=== PATIENT | male | born 1930 | race Caucasian/White ===

== ENCOUNTER 2017-02-06 12:01 | Inpatient (IN) | payer OTHER, MEDICARE ==
[2017-02-06] MEDS ORDERED: NS 1,000 ML IV ONE (12:24)
--- NOTE | 2017-02-06 12:24 | EDPHY ---
H & P Time Seen by Provider: 02/06/17 12:24 HPI/ROS: CHIEF COMPLAINT: Syncope, lower GI bleed HISTORY OF PRESENT ILLNESS: The patient presents to the ED with syncope, inability to get off the floor and development of a lower GI bleed. The patient is not anticoagulated. He does take daily aspirin. He has no prior history of a GI bleed. The patient does have a history of dementia. The patient does complain of some pain in his lower back which has been present for several weeks. The patient denies any acute focal numbness or weakness. He does feel globally weak. The patient has no complaints of fever, cough or congestion. The patient reportedly had been well prior to today's episode. REVIEW OF SYSTEMS: A comprehensive 10 point review of systems is otherwise negative aside from elements mentioned in the history of present illness. Source: Patient Exam Limitations: No limitations - Personal History Tetanus Vaccine Date: nov 2012 - Medical/Surgical History Hx Asthma: No Hx Chronic Respiratory Disease: No Hx Diabetes: No Hx Cardiac Disease: Yes Hx Renal Disease: No Hx Cirrhosis: No Hx Alcoholism: No Hx HIV/AIDS: No Hx Splenectomy or Spleen Trauma: No Other PMH: dementia, lipids, thyroid; prostate CA; - Social History Smoking Status: Former smoker - Physical Exam Exam: General Appearance: Alert, no distress Head: 2 cm occipital scalp plaque with small hematoma Neck: Minimal tenderness to palpation bilateral paracervical muscles Eyes: Pupils equal and round no pallor or injection ENT, Mouth: Mucous membranes moist Respiratory: There are no retractions, lungs are clear to auscultation Cardiovascular: Regular rate and rhythm Gastrointestinal: Abdomen is soft and nontender, no masses, bowel sounds normal Rectal: Bright red blood noted on digital rectal exam Neurological: A&O, normal motor function, normal sensory exam, normal cranial nerves Skin: Warm and dry, no rashes Musculoskeletal: Tenderness to palpation noted in the lower lumbar spine Extremities: symmetrical, full range of motion Constitutional: Initial Vital Signs Temperature (C) 36.5 C 02/06/17 12:01 Heart Rate 83 02/06/17 12:01 Respiratory Rate 20 02/06/17 12:01 Blood Pressure 119/63 02/06/17 12:01 O2 Sat (%) 92 02/06/17 12:01 O2 Delivery Mode Room Air Allergies/Adverse Reactions: No Known Allergies Allergy (Verified 02/06/17 12:24) Home Medications: Medication Instructions Recorded RX: [place]-3 Fatty Acids/Fish Oil 1 each PO DAILY 05/05/11 [Fish Oil 1,000 mg Softgel] RX: Tamsulosin HCl 0.4 mg PO DAILY 05/05/11 RX: Aspirin [Halfprin] 162 mg PO DAILY 06/13/11 RX: Atorvastatin Calcium [Lipitor 40 mg PO HS 06/13/11 40 mg (*)] RX: Herbals/Supplements -Info Only 1 ea PO DAILY 03/01/15 RX: Levothyroxine [Synthroid 75 75 mcg PO DAILY06 03/01/15 mcg (*)] RX: Rivastigmine [Exelon] 1 patch TP DAILY 03/01/15 Medical Decision Making - Diagnostics EKG Interpretation: EKG: Complete interpretation has been separately recorded in the [facility] archive. Summary impression: Sinus rhythm, rate 71, multiple PACs noted Imaging Results: Imaging Impressions Cervical Spine CT 02/06/17 12:43 Impression: 1. No acute posttraumatic abnormality identified. If there is persistent pain or neurologic deficit, consider MRI and/or flexion and extension views if clinically indicated. 2. Multilevel degenerative change with anterolisthesis of C2 on C3 and C3 on C4 , likely degenerative, with probable moderate spinal canal narrowing in the mid and lower cervical spine. Head CT 02/06/17 12:43 Impression: 1. Left frontal scalp laceration with no acute intracranial findings. 2. Diffuse cerebral atrophy with periventricular and subcortical low attenuation consistent with chronic microvascular ischemic gliosis. ED Course/Re-evaluation: The patient had an IV established. He was placed on a desk monitor. The patient has been typed and screened. The patient does have a scalp laceration and evidence of head trauma. He was taken for a CT scan of the head and cervical spine which demonstrate no evidence of an acute fracture, intracranial hemorrhage or additional injury. The patient underwent a CT scan of the abdomen pelvis for evaluation of his back and abdominal pain as well as lower GI bleed. This was done without contrast given his chronic renal insufficiency. CT scan of the head, cervical spine abdomen and pelvis demonstrate no evidence of trauma or obvious diverticulitis. The patient will be admitted to the hospital for evaluation of his lower GI bleed. The patient did have a scalp laceration repaired with leatha. These will need to be removed in 10 days. This has been communicated to the admitting hospitalist service. Consultation is made with Gastroenterology. The patient will be seen by Dr. Talbert. Consultation is made with Dr. Silva from the hospitalist service who will admit the patient. Differential Diagnosis: Differential diagnosis considered includes intracranial hemorrhage, skull fracture, cervical spine fracture, diverticular bleed, diverticulitis, critical anemia, hypovolemia - Data Points Laboratory Results: Laboratory Results 02/06/17 12:20 02/06/17 12:20 02/06/17 02/06/17 02/06/17 12:30 12:20 12:20 WBC RBC Hgb Hct MCV MCH MCHC RDW Plt Count MPV Neut % (Auto) Lymph % (Auto) Gates % (Auto) Eos % (Auto) Baso % (Auto) Nucleat RBC Rel Count Absolute Neuts (auto) Absolute Lymphs (auto) Absolute Monos (auto) Absolute Eos (auto) Absolute Basos (auto) Absolute Nucleated RBC Immature Gran % Immature Gran # PT 15.2 SEC H SEC (12.0-15.0) INR 1.20 H (0.83-1.16) APTT 27.9 SEC SEC (23.0-38.0) Sodium 136 mEq/L mEq/L (134-144) Potassium 5.2 mEq/L mEq/L (3.5-5.2) Chloride 105 mEq/L mEq/L (97-110) Carbon Dioxide 17 mEq/l L mEq/l (22-31) Anion Gap 14 mEq/L mEq/L (8-16) BUN 41 mg/dL H mg/dL (7-23) Creatinine 1.6 mg/dL H mg/dL (0.7-1.3) Estimated GFR 41 Glucose 159 mg/dL H mg/dL (70-100) Calcium 9.3 mg/dL mg/dL (8.5-10.4) Patient ABO/Rh A POSITIVE Antibody Screen NEGATIVE 02/06/17 12:20 WBC 15.65 10^3/uL H 10^3/uL (3.80-9.50) RBC 4.44 10^6/uL 10^6/uL (4.40-6.38) Hgb 11.9 g/dL L g/dL (13.7-17.5) Hct 37.8 % L % (40.0-51.0) MCV 85.1 fL fL (81.5-99.8) MCH 26.8 pg L pg (27.9-34.1) MCHC 31.5 g/dL L g/dL (32.4-36.7) RDW 15.2 % % (11.5-15.2) Plt Count 330 10^3/uL 10^3/uL (150-400) MPV 10.1 fL fL (8.7-11.7) Neut % (Auto) 71.0 % % (39.3-74.2) Lymph % (Auto) 18.0 % % (15.0-45.0) Gates % (Auto) 7.7 % % (4.5-13.0) Eos % (Auto) 2.3 % % (0.6-7.6) Baso % (Auto) 0.6 % % (0.3-1.7) Nucleat RBC Rel Count 0.0 % % (0.0-0.2) Absolute Neuts (auto) 11.11 10^3/uL H 10^3/uL (1.70-6.50) Absolute Lymphs (auto) 2.81 10^3/uL 10^3/uL (1.00-3.00) Absolute Monos (auto) 1.20 10^3/uL H 10^3/uL (0.30-0.80) Absolute Eos (auto) 0.36 10^3/uL 10^3/uL (0.03-0.40) Absolute Basos (auto) 0.10 10^3/uL 10^3/uL (0.02-0.10) Absolute Nucleated RBC 0.00 10^3/uL 10^3/uL (0-0.01) Immature Gran % 0.4 % % (0.0-1.1) Immature Gran # 0.07 10^3/uL 10^3/uL (0.00-0.10) PT INR APTT Sodium Potassium Chloride Carbon Dioxide Anion Gap BUN Creatinine Estimated GFR Glucose Calcium Patient ABO/Rh Antibody Screen Medications Given: Discontinued Medications Sodium Chloride (Ns) 1,000 mls @ 0 mls/hr IV EDNOW ONE; Wide Open PRN Reason: Protocol Stop: 02/06/17 12:25 Last Admin: 02/06/17 12:42 Dose: 1,000 mls Morphine Sulfate (Morphine) 2 mg IVP EDNOW ONE Stop: 02/06/17 12:39 Last Admin: 02/06/17 12:42 Dose: 2 mg Departure - Departure Disposition: [facility] Inpatient Acute Clinical Impression: Syncope, Scalp laceration, Lower GI bleed, Dementia Condition: Fair Referrals: Jarrod Iniguez MD [Primary Care Provider] - As per Instructions
[2017-02-06 12:34] LABS: % IMMATURE GRANULYOCYTES 0.4 % (0.0-1.1); ABSOLUTE IMMATURE GRANULOCYTES 0.07 10^3/uL (0.00-0.10); ADD DIFF? NO; ADD MORPH? NO; ADD SCAN? NO; ATYPICAL LYMPHOCYTE FLAG 0 (0-99); FRAGMENT RBC FLAG 0 (0-99); HEMATOCRIT 37.8 % (40.0-51.0); HEMOGLOBIN 11.9 g/dL (13.7-17.5); LEFT SHIFT FLG 0 (0-99); LIPEMIA HEMOLYSIS FLAG 80 (0-99); MEAN CELL HEMOGLOBIN 26.8 pg (27.9-34.1); MEAN CELL HEMOGLOBIN CONCENTR. 31.5 g/dL (32.4-36.7); MEAN CELL VOLUME 85.1 fL (81.5-99.8); MEAN PLATELET VOLUME 10.1 fL (8.7-11.7); PLATELET CLUMPS FLAG 10 (0-99); PLATELET COUNT 330 10^3/uL (150-400); RED BLOOD CELL COUNT 4.44 10^6/uL (4.40-6.38); RED CELL DISTRIBUTION WIDTH 15.2 % (11.5-15.2)
--- NOTE | 2017-02-06 12:48 | CPEKG ---
Heart Rate: 71 RR Interval: 845 P-R Interval: 168 QRSD Interval: 98 QT Interval: 380 QTC Interval: 413 P [place]: 39 QRS [place]: 67 T Wave [place]: 60 EKG Severity - ABNORMAL ECG - EKG Impression: SINUS RHYTHM EKG Impression: MULTIPLE ATRIAL PREMATURE COMPLEXES Electronically Signed By: Arun Cisneros 06-Feb-2017 12:51:05
[2017-02-06 12:49] LABS: INR 1.2 (0.83-1.16); PROTIME(PATIENT) 15.2 SEC (12.0-15.0)
[2017-02-06 12:50] LABS: APTT 27.9 SEC (23.0-38.0)
[2017-02-06 12:55] LABS: ANION GAP 14 mEq/L (8-16); CALCIUM 9.3 mg/dL (8.5-10.4); CARBON DIOXIDE 17 mEq/l (22-31); CHLORIDE 105 mEq/L (97-110); CREATININE 1.6 mg/dL (0.7-1.3); GLOMERULAR FILTRATION RATE 41; GLUCOSE 159 mg/dL (70-100); POTASSIUM 5.2 mEq/L (3.5-5.2); SODIUM 136 mEq/L (134-144)
--- NOTE | 2017-02-06 13:29 | EDPHY ---
ED Progress Note Narrative: Procedure: Laceration repair. Verbal consent was obtained from the patient. The 3.5 cm simple linear laceration on the left occipital area of scalp was anesthetized in the usual fashion. The wound was irrigated, draped and explored to its base with a gloved finger. There were no deep structures involved. No foreign bodies were identified. The wound was repaired with # 4 leatha. Good hemostasis was achieved and patient tolerated procedure well. The procedure was performed by myself.
[2017-02-06] MEDS ORDERED: CETIRIZINE 10 MG TAB PO PRN (16:17)
[2017-02-06] MEDS ORDERED: ONDANSETRON 4 MG/2 ML VIAL IVP PRN (16:23)
--- NOTE | 2017-02-06 16:50 | GHP ---
[f rep st] HISTORY AND PHYSICAL DATE OF ADMISSION: 02/06/2017 CHIEF COMPLAINT: Syncope. HISTORY OF PRESENT ILLNESS: This is an 86-year-old male with history of dementia, who was brought to the emergency department after having a syncopal episode this morning. Reportedly the patient was o n the toilet when he passed out. The patient is a poor historian. Was unable to tell me what happen ed. The patient does not have any history of GI bleeding. He takes an aspirin a day. He denies hav ing any bloody stools to me. His tells me she is uncertain if he has been having any bloody sto ols because he is "a very private" person. He has not been eating or drinking much for some time. Chen jacobo has been very weak and takes many naps throughout the day. He has not been noted to have any fever s or chills. At the time of my exam, the patient is reporting some low back pain. No numbness or weakness in his legs. PAST MEDICAL HISTORY: 1. Coronary artery disease, status post CABG and stent placement. 2. Hypertension. 3. Dyslipidemia. 4. Dementia. 5. 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 6. Hypothyroidism. 7. History of prostate cancer. PAST SURGICAL HISTORY: CABG by Dr. Resendez. HOME MEDICATIONS: Reviewed. Refer to [facility] for details. ALLERGIES: No known drug allergies. SOCIAL HISTORY: The patient lives with his in [place]. They do have some help at home. The pa tiejoaquín is a former smoker. He has a history of alcohol use. 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 REVIEW OF SYSTEMS: Comprehensive 10-point review of systems was done and was negative, except for as mentioned in the HPI. PHYSICAL EXAM: VITAL SIGNS: Blood pressure 155/95, pulse of 82, respiratory rate 20, O2 saturation 94% on room air. Temperature afebrile. GENERAL: In no acute distress, but he is confused. HEENT: Head normocephalic, atraumatic. The patient has a closed posterior scalp laceration. Eyes are PERR LA. Sclerae anicteric back. CARDIOVASCULAR: S1, S2. No murmurs, rubs, clicks, gallops, or JVD. N o lower extremity edema. PULMONARY: Lungs are clear. No wheezes, rales, or rhonchi. ABDOMEN: Sof t, nontender, nondistended. No guarding or rebound tenderness. Normoactive bowel sounds. EXTREMITI ES: No clubbing or cyanosis. NEURO: Cranial nerves 2-12 grossly intact. SKIN: Clear. No rashes. BACK: There is no gross deformity in his lumbar spine. Paraspinal musculature is without spasm. DIAGNOSTICS: WBC is 15.6, hemoglobin 11.9, hematocrit 37.8, platelets 330. Sodium 136, potassium 5. 2, chloride 105, CO2 17, BUN 41, creatinine 1.6, glucose 159. MCV 85.1. Head CT was reviewed, showi ng left frontal scalp laceration, diffuse cerebral atrophy. Refer to report for full details. Cervi gretchen spine CT was reviewed. Refer to report for details. CT of the abdomen and pelvis shows no signi ficant abnormalities within the abdomen and pelvis. Refer to report for full details. EKG done 02/06/2017, was reviewed. Showing sinus rhythm, rate 71 beats per minute and no acute ische tala changes. ASSESSMENT/PLAN: This is an 86-year-old male, who presented to the hospital with: 1. Syncope while on the toilet with reported lower gastrointestinal bleed. Plan: The patient is ane tala but appears to be at his baseline and is currently hemodynamically stable. I have discussed the case with Dr. Abena Talbert who is intelligence consultant for GI of the [facility]. He will see the patient in the [facility]. He recommended that he be kept n.p.o. in case he does decide to pursue endoscopy. Will repeat a CBC in the morning. 2. Leukocytosis without any obvious signs or symptoms of infection. Plan: Will continue to monitor for signs and symptoms of infection. 3. Chronic kidney disease. Plan: Patient's creatinine appears to be at his baseline of 1.6 which w as the same as a year ago. His BUN is elevated which is concerning for prerenal azotemia and hypovol emia. Will treat with some IV fluids and repeat a chemistry panel in the morning. 4. Lumbar pain: The patient did have a syncopal episode while on the toilet. It is unclear how muc h pain he is actually having at this time due to his dementia. If he continues to have reports of se binu lumbar pain, it would be reasonable to obtain a lumbar spine x-ray to evaluate for compression f rusty. 5. The patient requests to be full code status. Will place on observation at this time. Further wo rkup will dictate if he ends up meeting inpatient criteria. /[id number]/MODL
[2017-02-06] MEDS: ATORVASTATIN CALCIUM 40 MG TAB PO SCH (22:53)
[2017-02-06] MEDS: TAMSULOSIN HCL 0.4 MG CAP PO SCH (22:53)
[2017-02-06] MEDS: ACETAMINOPHEN 325 MG TAB PO PRN (22:53)
[2017-02-06 22:55] LABS: HEMATOCRIT 27.3 % (40.0-51.0); HEMOGLOBIN 8.9 g/dL (13.7-17.5)
[2017-02-07] MEDS ORDERED: LORazepam 2 MG/ML INJ IVP PRN (03:40)
[2017-02-07] MEDS ORDERED: D50W 25 GM/50 ML SYR IVP PRN (03:41)
[2017-02-07] MEDS ORDERED: D10W 250 ML PRN HYPOGLYCEMIA IV (04:00)
[2017-02-07 04:11] LABS: % IMMATURE GRANULYOCYTES 0.4 % (0.0-1.1); ABSOLUTE IMMATURE GRANULOCYTES 0.04 10^3/uL (0.00-0.10); ADD DIFF? NO; ADD MORPH? NO; ADD SCAN? NO; ATYPICAL LYMPHOCYTE FLAG 0 (0-99); FRAGMENT RBC FLAG 0 (0-99); HEMATOCRIT 26.2 % (40.0-51.0); HEMOGLOBIN 8.2 g/dL (13.7-17.5); LEFT SHIFT FLG 0 (0-99); LIPEMIA HEMOLYSIS FLAG 80 (0-99); MEAN CELL HEMOGLOBIN 26.4 pg (27.9-34.1); MEAN CELL HEMOGLOBIN CONCENTR. 31.3 g/dL (32.4-36.7); MEAN CELL VOLUME 84.2 fL (81.5-99.8); PLATELET CLUMPS FLAG 10 (0-99); PLATELET COUNT 228 10^3/uL (150-400); RED BLOOD CELL COUNT 3.11 10^6/uL (4.40-6.38); RED CELL DISTRIBUTION WIDTH 15.4 % (11.5-15.2)
[2017-02-07 04:20] LABS: ANION GAP 8 mEq/L (8-16); CALCIUM 8.3 mg/dL (8.5-10.4); CARBON DIOXIDE 17 mEq/l (22-31); CHLORIDE 112 mEq/L (97-110); CREATININE 1.8 mg/dL (0.7-1.3); GLOMERULAR FILTRATION RATE 36; GLUCOSE 111 mg/dL (70-100); MAGNESIUM 1.7 mg/dL (1.6-2.3); POTASSIUM 5.1 mEq/L (3.5-5.2); SODIUM 137 mEq/L (134-144)
[2017-02-07 05:31] LABS: PROCALCITONIN 0.22 ng/mL (0.02-0.10)
[2017-02-07] MEDS: LEVOTHYROXINE 75 MCG TAB PO SCH (06:00)
[2017-02-07] MEDS: NS 1,000 ML IV SCH (07:13)
[2017-02-07] MEDS ORDERED: NS 1,000 ML IV ONE (08:14)
[2017-02-07] MEDS ORDERED: PROPOFOL/EMULSION 500 MG/50 ML BOTTLE IV ONE (08:16)
[2017-02-07] MEDS ORDERED: LIDOCAINE 2% 100 MG/5 ML SYR ONE (08:18)
--- NOTE | 2017-02-07 08:49 | PDANEPAE ---
ANE Past Medical History - Pulmonary History Hx Oxygen in Use at Home: No Hx Sleep Apnea: Yes Sleep Apnea Screening Result - Last Documented: Positive - Endocrine History Hx Diabetes: No - Chronic Pain History Chronic Pain: No ANE Review of Systems Review of Systems: ANE Patient History - Allergies Allergies/Adverse Reactions: No Known Allergies Allergy (Verified 02/06/17 12:24) - Home Medications Home Medications: Tamsulosin HCl 0.4 mg PO DAILY@19 05/05/11 [Last Taken 02/05/17] Atorvastatin Calcium [Lipitor 40 mg (*)] 40 mg PO HS 06/13/11 [Last Taken ] Herbals/Supplements -Info Only 1 ea PO DAILY 03/01/15 [Last Taken Unknown] Levothyroxine [Synthroid 75 mcg (*)] 75 mcg PO DAILY06 03/01/15 [Last Taken ] Ascorbic Acid [Vitamin C 500 mg (*)] 1,000 mg PO DAILY 02/06/17 [Last Taken ] Aspirin [Aspirin 325 mg (*)] 162.5 mg PO DAILY 02/06/17 [Last Taken 02/05/17] Cetirizine [ZyrTEC 10 mg (*)] 10 mg PO HS PRN 02/06/17 [Last Taken 02/05/17] Magnesium Oxide [Magnesium Oxide 400 mg (*)] 400 mg PO HS 02/06/17 [Last Taken 02/05/17] Shell-3 Fatty Acids [Fish Oil 1000 mg (*)] 1,000 mg PO DAILY 02/06/17 [Last Taken 02/05/17] Omeprazole 40 mg PO DAILY 02/06/17 [Last Taken 02/05/17] Rivastigmine [Exelon] 1 each TD DAILY 02/06/17 [Last Taken 02/05/17] Venlafaxine Xr [Effexor Xr 75MG (*)] 37.5 - 75 mg PO DAILY 02/06/17 [Last Taken 02/06/17 37.5MG] - Smoking Hx Smoking Status: Former smoker ANE Labs/Vital Signs - Labs Result Diagrams: 02/07/17 03:50 02/07/17 03:50 - Vital Signs Blood Pressure: 104/58 Heart Rate: 90 Respiratory Rate: 18 O2 Sat (%): 94 Height: 172.72 cm Weight: 74.843 kg ANE Physical Exam - Airway Neck exam: decreased ROM Mallampati Score: Class 3 Mouth exam: poor dentition - Pulmonary Pulmonary: no respiratory distress - Cardiovascular Cardiovascular: regular rate and rhythym - ASA Status ASA Status: IV ANE Anesthesia Plan Total IV Anesthesia: Yes Urgent/Emergent Case: Anes eval completed preop but documented later for safe timely pt care
--- NOTE | 2017-02-07 08:49 | GIREPORT ---
[facility] - Endoscopy Department Patient Name: Mustapha Brennan Procedure Date: 02/07/2017 8:02 AM Patient Type: Inpatient Attending MD/ ER Physician: Abena Talbert MD Procedure: Upper GI endoscopy Indications: Acute post hemorrhagic anemia, Melena Providers: Abena Talbert MD Medicines: Sedation Administered by an Anesthesia Professional Complications: No immediate complications. Description of Procedure: After obtaining informed consent, the endoscope was passed under direct vision. Throughout the procedure, the patient's blood pressure, pulse, and oxygen saturations were monitored continuously. The Endoscope was intro duced through the mouth, and advanced to the third part of duodenum. The uppe r GI endoscopy was accomplished without difficulty. The patient tolerated th e procedure well. The upper GI endoscopy was accomplished without difficu lty. The patient tolerated the procedure well. Findings: Non-severe esophagitis with no bleeding was found in the lower third of the esophagus. Diffuse minimal inflammation characterized by congestion (edema) and erythema was found in the entire examined stomach. One oozing superficial duodenal ulcer with an adherent clot (Jim Cl ass IIb) was found in the first portion of the duodenum. The lesion was 9 m m in largest dimension. Area was successfully injected with 2 mL of a 1:10,0 00 solution of epinephrine for drug delivery. Coagulation for hemostasis u sing monopolar probe was successful. Estimated Blood Loss: Estimated blood loss: none. Post Op Diagnosis: - Non-severe reflux esophagitis. - Gastritis. - One oozing duodenal ulcer with an adherent clot (Jim Class IIb). Injected. Treated with a monopolar probe. - No specimens collected. Recommendation: - Return patient to [facility] for [facility] care. - Clear liquid diet. - Perform an H. pylori serology today. - The findings and recommendations were discussed with the patient's fa kannan. - No aspirin, ibuprofen, naproxen, or other non-steroidal anti-inflamma tory drugs. Attending Participation: I personally performed the entire procedure. ,Electronically Sigened by Abena Talbert MD> Abena Talbert MD 02/07/2017 8:49:41 AM Number of Addenda: 0 Note Initiated On: 02/07/2017 8:02 AM [email or web address]
[2017-02-07] MEDS ORDERED: ALBUTEROL 3 ML DEYVIAL IH PRN (08:50)
[2017-02-07] MEDS ORDERED: NALOXONE HCL 0.4 MG/ML INJ IVP PRN (08:50)
--- NOTE | 2017-02-07 08:50 | POSTANESTH ---
Post Anesthetic Evaluation Cardiovascular Status: Similar to Pre-Op Cond Respiratory Status: Similar to Pre-op Cond. Level of Consciousness/Mental Status: Moderately Sleepy Pain Control: Adequate, Prn Tx Ordered Nausea/Vomiting Control: Adequate, Prn Tx Ordered Complications Possibly Related to Anesthesia: None Noted
[2017-02-07] MEDS ORDERED: PANTOPRAZOLE SODIUM 40 MG TAB PO SCH (09:00)
[2017-02-07] MEDS ORDERED: Herbals/Supplements -Info Only PO SCH (09:00)
--- NOTE | 2017-02-07 09:33 | GCON ---
[f rep st] CONSULTATION INPATIENT CONSULTATION NOTE REFERRING PHYSICIAN: Jonas Silva DO REASON FOR CONSULTATION: Melena and anemia. CHIEF COMPLAINT: Back pain. HISTORY OF PRESENT ILLNESS: Briefly, the patient is a pleasant, demented, 86-year-old male who was a dmitted to the hospital on 02/06/2017 after a fall. He had a syncopal episode at home. He was repor tedly in the bathroom having a bowel movement when this occurred. The patient is somewhat of a poor historian and is difficult to elicit the details of his symptoms. He is on an aspirin every day for the management of coronary disease. According to his family, he may have been having some degree of darker bloody stool, although this is not certain. In addition, she reports that he has had some dec reased oral intake and perhaps been describing some nausea and abdominal discomfort. He has been fee ling somewhat weak and tired, with multiple naps through the day as well. PAST MEDICAL HISTORY: Includes coronary disease, hypertension, elevated lipids, dementia, hypothyroi dism, and prostate cancer. PAST SURGICAL HISTORY: Includes CABG. HOME MEDICATIONS: Included aspirin, tamsulosin, atorvastatin, levothyroxine, and Exelon. ALLERGIES: None. SOCIAL HISTORY: He lives with his in [place]. He does not drink or smoke currently, but has a history of drinking and smoking. 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 FAMILY HISTORY: The patient was unable to report any family history due to his difficulties with his torical details. REVIEW OF SYSTEMS: A comprehensive 10-point review was undertaken with the patient and was negative, although limited by his ability to participate in the history. The pertinent positives and negative s are largely elicited from his , the chart, and are detailed in the History of Present Illness. PHYSICAL EXAM: GENERAL: This is an elderly male in no apparent distress. HEENT: His pupils are eq ual, round, reactive to light and accommodation. His head is atraumatic, normocephalic. CARDIOVASCU LAR: Reveals normal S1 and S2, without murmurs, rubs, and gallops. PULMONARY: Clear lung burger wi th good respiratory effort and normal auscultation. ABDOMEN: Soft, nontender, with normoactive andrea l sounds. EXTREMITIES: Show no clubbing, cyanosis, or edema. NEURO: Grossly nonfocal apart from h is dementia. SKIN: Warm and dry, without bruises. BACK: Reveals no gross deformities. PSYCH: Re veals a pleasant and demented male with normal mood and affect, given his age and dementia. LABORATORY TESTING: Shows a white count of 15.65, hemoglobin of 11.9, hematocrit of 37.8. These rivas ues fell overnight to a hemoglobin of 8.2, hematocrit of 26.2, INR 1.2. IMPRESSION/RECOMMENDATIONS: The patient is a pleasantly demented 86-year-old male who was admitted t o [facility] after syncopal episode in the setting of possible bloody stool. Overnight, his blood counts fell. Given his evolving anemia in the setting of possible bloody stool and syncope, evaluati on for gastrointestinal bleeding is indicated. Given the elevation in his BUN, the potential descrip tion of his stools as dark, his decreased eating habits and possible nausea, I am concerned about an upper gastrointestinal source. We will proceed with upper endoscopy. Given his age and comorbiditie s, and underlying dementia, he will be at some risk of conscious sedation. We will have Anesthesia's help in order to provide sedation for his procedure. /[id number]/MODL
--- NOTE | 2017-02-07 10:36 | ASMTCMCOM ---
CM Note CM Note Notes: Dc needs unclear, pt has hx of dementia, lives in home w/. PT/OT evals pending, CM w/f. Date Signed: 02/07/2017 10:35 AM Electronically Signed By:Danay Cramer RN
[2017-02-07] MEDS: OMEGA-3 FATTY ACIDS 1,000 MG CAP PO SCH (12:04)
[2017-02-07] MEDS: ASCORBIC ACID 500 MG TAB PO SCH (12:04)
[2017-02-07] MEDS: RIVASTIGMINE 13.3 MG TD SCH (12:05)
--- NOTE | 2017-02-07 15:05 | HOSPPROG ---
Hospitalist Progress Note Assessment/Plan: Patient is a 86 y/o male w hx of dementia who had a syncopal episode. He was on the toilet when he passed out. Today is my first encounter w the patient/ chart reviewed. *syncope -occurred while on toilet -likely vasovagal,also likely due to loss of blood *GI bleed w associated melena -s/p EGD * H pylori -has a superficial duodenal ulcer -will initiate triple therapy *CKD -creat increase to 1.8/ higher than his baseline *significant dementia -his friend is at the bedside and says this is his baseline -pt only oriented to himself *Lumbar pain -xray shows nothing acute -consider an MRI if unable to work w PT and OT *Plan : patient will require another midnight stay, unable to ambulate/having severe back pain/ will need further evaluation/ this will make him IP status.Needs treatment for h pylori. Subjective: Mustapha is c/o back pain. Objective: Vital Signs Temp Pulse Resp BP Pulse Ox 37.3 C 82 18 104/56 L 93 02/07/17 11:43 02/07/17 11:43 02/07/17 11:43 02/07/17 11:43 02/07/17 11:43 Laboratory Results 02/07/17 03:50 02/07/17 03:50 02/06/17 02/07/17 02/08/17 05:59 05:59 05:59 Intake Total 1050 300 Output Total 0 Balance 1050 300 PT 15.2 SEC (12.0-15.0) H 02/06/17 12:20 INR 1.20 (0.83-1.16) H 02/06/17 12:20 - Physical Exam Constitutional: uncomfortable Eyes: PERRL Ears, Nose, Mouth, Throat: hearing normal Cardiovascular: regular rate and rhythym Respiratory: no respiratory distress Gastrointestinal: normoactive bowel sounds Skin: warm Musculoskeletal: muscular tenderness, generalized weakness Neurologic: other (alert) Psychiatric: poor insight, poor judgement, poor memory ICD10 Worksheet Patient Problems: Problems Problem Status Onset Dementia Acute Lower GI bleed Acute Scalp laceration Acute Syncope Acute Coronary artery bypass grafting Active Altered mental status Acute
[2017-02-07] MEDS: ACETAMINOPHEN 325 MG TAB PO PRN (15:21)
[2017-02-07] MEDS: VENLAFAXINE XR 37.5 MG CAP PO SCH (15:37)
--- NOTE | 2017-02-07 15:41 | PDMN ---
Medical Necessity Medical necessity: los >2 mn for syncope r/t vasovagal vs GIB, H pylori, CKD w/ elevated creat, and lumbar pain with inability to ambulate; comorbid CAD, htn, dementia; per progress note & order 02/07/17
[2017-02-07 19:45] LABS: HEMATOCRIT 24.3 % (40.0-51.0); HEMOGLOBIN 7.8 g/dL (13.7-17.5)
[2017-02-07] MEDS: CLARITHROMYCIN 500 MG TAB PO SCH (20:48)
[2017-02-07] MEDS: PANTOPRAZOLE SODIUM 40 MG TAB PO SCH (20:48)
[2017-02-07] MEDS: ATORVASTATIN CALCIUM 40 MG TAB PO SCH (20:48)
[2017-02-07] MEDS: TAMSULOSIN HCL 0.4 MG CAP PO SCH (20:48)
[2017-02-08] MEDS: ACETAMINOPHEN 325 MG TAB PO PRN (00:57)
[2017-02-08 01:00] LABS: HEMATOCRIT 21.7 % (40.0-51.0)
[2017-02-08] MEDS: NS 1,000 ML IV SCH (01:58)
[2017-02-08] MEDS: LEVOTHYROXINE 75 MCG TAB PO SCH (05:09)
[2017-02-08 06:02] LABS: % IMMATURE GRANULYOCYTES 0.6 % (0.0-1.1); ABSOLUTE IMMATURE GRANULOCYTES 0.06 10^3/uL (0.00-0.10); ADD DIFF? NO; ADD MORPH? NO; ADD SCAN? NO; ATYPICAL LYMPHOCYTE FLAG 0 (0-99); FRAGMENT RBC FLAG 0 (0-99); HEMATOCRIT 22.9 % (40.0-51.0); HEMOGLOBIN 7.1 g/dL (13.7-17.5); LEFT SHIFT FLG 0 (0-99); LIPEMIA HEMOLYSIS FLAG 80 (0-99); MEAN CELL HEMOGLOBIN 25.9 pg (27.9-34.1); MEAN CELL VOLUME 83.6 fL (81.5-99.8); MEAN PLATELET VOLUME 10.2 fL (8.7-11.7); PLATELET CLUMPS FLAG 20 (0-99); PLATELET COUNT 226 10^3/uL (150-400); RED BLOOD CELL COUNT 2.74 10^6/uL (4.40-6.38); RED CELL DISTRIBUTION WIDTH 15.6 % (11.5-15.2)
[2017-02-08 06:17] LABS: ANION GAP 9 mEq/L (8-16); CALCIUM 8.3 mg/dL (8.5-10.4); CARBON DIOXIDE 16 mEq/l (22-31); CHLORIDE 114 mEq/L (97-110); CREATININE 2.1 mg/dL (0.7-1.3); GLOMERULAR FILTRATION RATE 30; GLUCOSE 120 mg/dL (70-100); POTASSIUM 4.8 mEq/L (3.5-5.2); SODIUM 139 mEq/L (134-144)
[2017-02-08] MEDS: PANTOPRAZOLE SODIUM 40 MG TAB PO SCH ×2 (08:21→22:00)
[2017-02-08] MEDS: CLARITHROMYCIN 500 MG TAB PO SCH ×2 (08:21→22:00)
[2017-02-08] MEDS: ASCORBIC ACID 500 MG TAB PO SCH (08:21)
[2017-02-08] MEDS: OMEGA-3 FATTY ACIDS 1,000 MG CAP PO SCH (08:21)
[2017-02-08] MEDS: VENLAFAXINE XR 37.5 MG CAP PO SCH (08:21)
[2017-02-08] MEDS: RIVASTIGMINE 13.3 MG TD SCH (08:29)
[2017-02-08] MEDS ORDERED: ACETAMINOPHEN 325 MG TAB PO ONE (08:35)
--- NOTE | 2017-02-08 08:38 | HOSPPROG ---
Hospitalist Progress Note Assessment/Plan: Patient is a 86 y/o male w hx of dementia who had a syncopal episode. He was on the toilet when he passed out. *syncope -occurred while on toilet -likely vasovagal,also likely due to loss of blood *UGI bleed w associated melena -s/p EGD -h/h cont to trend down -GI to see today again -transfuse prbc now * H pylori -has a superficial duodenal ulcer -will initiate triple therapy/ started on 02/07,needs 14 days of treatment *CKD -creat increase to 2.1/ secondary to blood loss -will follow *significant dementia -his friend is at the bedside and says this is his baseline -pt only oriented to himself *Lumbar pain -xray shows nothing acute -consider an MRI if unable to work w PT and OT *Plan : spoke with his who is in agreement about transfusion, understands risks and benefits, will monitor h/h. Subjective: Shailesh has no c/o pain. Feeling fine. Asked how his is. Objective: Vital Signs Temp Pulse Resp BP Pulse Ox 37.1 C 81 20 122/59 H 94 02/08/17 03:25 02/08/17 03:25 02/08/17 03:25 02/08/17 03:25 02/08/17 03:25 Laboratory Results 02/08/17 05:43 02/08/17 05:43 02/07/17 02/08/17 02/09/17 05:59 05:59 05:59 Intake Total 750 Balance 750 PT 15.2 SEC (12.0-15.0) H 02/06/17 12:20 INR 1.20 (0.83-1.16) H 02/06/17 12:20 - Physical Exam Constitutional: no apparent distress, not in pain, chronically ill appearing Eyes: PERRL Ears, Nose, Mouth, Throat: hearing normal Cardiovascular: regular rate and rhythym Respiratory: no respiratory distress Gastrointestinal: normoactive bowel sounds, soft, non-tender abdomen Skin: warm Musculoskeletal: generalized weakness Neurologic: other (alert and oriented to himself) Psychiatric: interacting appropriately ICD10 Worksheet Patient Problems: Problems Problem Status Onset Dementia Acute Lower GI bleed Acute Scalp laceration Acute Syncope Acute Coronary artery bypass grafting Active Altered mental status Acute
--- NOTE | 2017-02-08 09:01 | SOAPPROG ---
SOAP Progress Note Assessment/Plan: Assessment/Plan: 1. UGI Bleed - s/p EGD with endo-tx for duodenal ulcer - h.pylori positive, started on abx - H/H fell overnight, but stable this AM - OK to resume clears - will need stool h.pylori Ag or urease breath test, to docuemnt cure, 8 weeks after completiong of h.pylori therapy - avoid NSAIDs - monitor bowels and H/H - if H/H falls, or melena persists, then would consider repeat EGD 02/08/17 08:58 Subjective: CC: f/u ulcer S: some looser, red, BMs overnight no syncope no fever no pain Objective: Vital Signs Temp Pulse Resp BP Pulse Ox 36.7 C 71 16 117/72 98 02/08/17 08:00 02/08/17 08:00 02/08/17 08:00 02/08/17 08:00 02/08/17 08:00 Laboratory Results 02/08/17 05:43 02/08/17 05:43 02/07/17 02/08/17 02/09/17 05:59 05:59 05:59 Intake Total 750 Balance 750 PT 15.2 SEC (12.0-15.0) H 02/06/17 12:20 INR 1.20 (0.83-1.16) H 02/06/17 12:20 Laboratory Tests 02/06/17 02/06/17 02/06/17 12:20 12:20 22:30 Hgb 11.9 L 8.9 L Hct 37.8 L 27.3 L D INR 1.20 H Sodium Potassium Chloride Carbon Dioxide Anion Gap BUN Creatinine H. pylori IgG Antibody 02/07/17 02/07/17 02/07/17 03:50 19:30 Unknown Hgb 8.2 L 7.8 L Hct 26.2 L 24.3 L INR Sodium Potassium Chloride Carbon Dioxide Anion Gap BUN Creatinine H. pylori IgG Antibody POSITIVE H 02/08/17 02/08/17 02/08/17 00:25 05:43 05:43 Hgb 7.0 L 7.1 L Hct 21.7 L 22.9 L INR Sodium 139 Potassium 4.8 Chloride 114 H Carbon Dioxide 16 L Anion Gap 9 BUN 71 H Creatinine 2.1 H H. pylori IgG Antibody Physical Exam - Physical Exam EENT: PERRL/EOMI Respiratory: lungs clear Cardiac/Chest: regular rate, rhythm Abdomen: normal bowel sounds, non-tender, soft Extremities: normal range of motion Neuro/Psych: no motor/sensory deficits, other (dementia) ICD10 Worksheet Patient Problems: Problems Problem Status Onset Dementia Acute Lower GI bleed Acute Scalp laceration Acute Syncope Acute Coronary artery bypass grafting Active Altered mental status Acute
[2017-02-08] MEDS ORDERED: OLANZapine 2.5 MG TAB PO ONE (16:57)
[2017-02-08 17:52] LABS: HEMATOCRIT 25.2 % (40.0-51.0); HEMOGLOBIN 8.3 g/dL (13.7-17.5)
[2017-02-08] MEDS: TAMSULOSIN HCL 0.4 MG CAP PO SCH (18:31)
[2017-02-08] MEDS: ATORVASTATIN CALCIUM 40 MG TAB PO SCH (22:00)
[2017-02-09 01:12] LABS: HEMATOCRIT 22.5 % (40.0-51.0); HEMOGLOBIN 7.5 g/dL (13.7-17.5)
--- NOTE | 2017-02-09 06:09 | SOAPPROG ---
TAD Progress Note Assessment/Plan: Assessment/Plan: 1. UGI Bleed - s/p EGD with endo-tx for duodenal ulcer on 02/07 - h.pylori positive, started on abx, will need stool h.pylori Ag or urease breath test, to document cure, 8 weeks after completion of h.pylori therapy - avoid NSAIDs - H/H continues to trend down, despite pRBCs yesterday - and while vitals are stable, and RNs report no melena, I am concerned about continued bleeding - recommend repeat EGD today to reassess - will discuss with family - given mental status, age, obesity, will involved anesthesia for sedation given higher sedation risks Subjective: CC: f/u peptic ulcer +h.pylori S: confusion overnight mental status seems worse no melena or BMs overnight, per RN tolerated po last night without difficulty no fever no cough no vomiting Objective: Vital Signs Temp Pulse Resp BP Pulse Ox 36.9 C 91 18 117/56 L 95 02/08/17 23:10 02/08/17 23:10 02/08/17 23:10 02/08/17 23:10 02/08/17 23:10 Laboratory Results 02/09/17 00:50 02/08/17 05:43 02/08/17 02/09/17 02/10/17 05:59 05:59 05:59 Intake Total 750 750 Balance 750 750 PT 15.2 SEC (12.0-15.0) H 02/06/17 12:20 INR 1.20 (0.83-1.16) H 02/06/17 12:20 Physical Exam - Physical Exam EENT: PERRL/EOMI Respiratory: lungs clear Cardiac/Chest: regular rate, rhythm Abdomen: normal bowel sounds, non-tender, soft Skin: normal color Neuro/Psych: cognition abnormalities ICD10 Worksheet Patient Problems: Problems Problem Status Onset Dementia Acute Lower GI bleed Acute Scalp laceration Acute Syncope Acute Coronary artery bypass grafting Active Altered mental status Acute
[2017-02-09] MEDS: LEVOTHYROXINE 75 MCG TAB PO SCH ×2 (06:15→06:26)
[2017-02-09] MEDS ORDERED: LR 1,000 ML IV ONE (07:52)
[2017-02-09] MEDS ORDERED: NS 1,000 ML IV ONE (08:07)
[2017-02-09] MEDS ORDERED: PROPOFOL 200 MG/20 ML VIAL ONE (09:16)
[2017-02-09 09:25] LABS: HEMATOCRIT 24.9 % (40.0-51.0); HEMOGLOBIN 8.2 g/dL (13.7-17.5)
--- NOTE | 2017-02-09 09:32 | PDANEPAE ---
ANE History of Present Illness 86 year old male w/ dementia (consent for anesthesia obtained from - Veronica Brennan via telephone) with acute upper GI bleed presents for EGD. ANE Past Medical History - Cardiovascular History Hx Hypertension: No Hx Arrhythmias: No Hx Chest Pain: No Hx Coronary Artery / Peripheral Vascular Disease: No Hx CHF / Valvular Disease: No Hx Palpitations: No - Pulmonary History Hx COPD: No Hx Asthma/Reactive Airway Disease: No Hx Recent Upper Respiratory Infection: No Hx Oxygen in Use at Home: No Hx Sleep Apnea: Yes Sleep Apnea Screening Result - Last Documented: Positive - Endocrine History Hx Diabetes: No Hypothyroid: No Hyperthyroid: No Obesity: no - Congenital Disorder History Hx Congenital Disorders: No - GI History GERD: no Hx Gastrointestinal Disorders: Yes Gastrointestinal History Comment: Acute GI bleed. - Chronic Pain History Chronic Pain: No ANE Review of Systems Review of Systems: - Exercise capacity Exercise capacity: unable to assess ANE Patient History - Allergies Allergies/Adverse Reactions: No Known Allergies Allergy (Verified 02/06/17 12:24) - Home Medications Home medications: home medication list seen and reviewed Home Medications: Tamsulosin HCl 0.4 mg PO DAILY@19 05/05/11 [Last Taken 02/05/17] Atorvastatin Calcium [Lipitor 40 mg (*)] 40 mg PO HS 06/13/11 [Last Taken ] Herbals/Supplements -Info Only 1 ea PO DAILY 03/01/15 [Last Taken Unknown] Levothyroxine [Synthroid 75 mcg (*)] 75 mcg PO DAILY06 03/01/15 [Last Taken ] Ascorbic Acid [Vitamin C 500 mg (*)] 1,000 mg PO DAILY 02/06/17 [Last Taken ] Aspirin [Aspirin 325 mg (*)] 162.5 mg PO DAILY 02/06/17 [Last Taken 02/05/17] Cetirizine [ZyrTEC 10 mg (*)] 10 mg PO HS PRN 02/06/17 [Last Taken 02/05/17] Magnesium Oxide [Magnesium Oxide 400 mg (*)] 400 mg PO HS 02/06/17 [Last Taken 02/05/17] [place]-3 Fatty Acids [Fish Oil 1000 mg (*)] 1,000 mg PO DAILY 02/06/17 [Last Taken 02/05/17] Omeprazole 40 mg PO DAILY 02/06/17 [Last Taken 02/05/17] Rivastigmine [Exelon] 1 each TD DAILY 02/06/17 [Last Taken 02/05/17] Venlafaxine Xr [Effexor Xr 75MG (*)] 37.5 - 75 mg PO DAILY 02/06/17 [Last Taken 02/06/17 37.5MG] - NPO status NPO Status: no food or drink >8 hours - Anes Hx Anes Hx: no prior problems - Smoking Hx Smoking Status: Former smoker - Family Anes Hx Family Anes Hx: neg - N/A ANE Labs/Vital Signs - Labs Result Diagrams: 02/09/17 09:11 02/08/17 05:43 - Vital Signs Blood Pressure: 114/65 Heart Rate: 66 Respiratory Rate: 18 O2 Sat (%): 91 Height: 172.72 cm Weight: 74.843 kg ANE Physical Exam - Airway Mallampati Score: Unable to assesss - ASA Status ASA Status: III ANE Anesthesia Plan Anesthesia Plan: GA with mask
[2017-02-09] MEDS ORDERED: PROPOFOL/EMULSION 500 MG/50 ML BOTTLE IV ONE (09:47)
[2017-02-09] MEDS ORDERED: ONDANSETRON 4 MG/2 ML VIAL IVP PRN (10:03)
[2017-02-09] MEDS ORDERED: NALOXONE HCL 0.4 MG/ML INJ IVP PRN (10:03)
[2017-02-09] MEDS ORDERED: fentaNYL 100 MCG/2 ML INJ IVP PRN (10:03)
[2017-02-09] MEDS ORDERED: LR 500 ML IV PRN (10:03)
--- NOTE | 2017-02-09 10:10 | GIREPORT ---
[facility] Surgical Services - Endoscopy Department Patient Name: Mustapha Brennan Procedure Date: 02/09/2017 9:35 AM Patient Type: Inpatient Attending MD/ ER Physician: Abena Talbert MD Procedure: Upper GI endoscopy Indications: Melena, Acute duodenal ulcer with hemorrhage Providers: Abena Talbert MD Medicines: Sedation Administered by an Anesthesia Professional Complications: No immediate complications. Description of Procedure: After obtaining informed consent, the endoscope was passed under direct vision. Throughout the procedure, the patient's blood pressure, pulse, and oxygen saturations were monitored continuously. The Endoscope was intro duced through the mouth, and advanced to the third part of duodenum. The uppe r GI endoscopy was accomplished without difficulty. The patient tolerated th e procedure well. Findings: The examined esophagus was normal. Localized mild inflammation characterized by congestion (edema) and shannon thema was found in the gastric antrum. One non-bleeding cratered duodenal ulcer with a nonbleeding visible ves savannah (Jim Class IIa) was found in the first portion of the duodenum. The lesion was 9 mm in largest dimension. Area was successfully injected wi th 2 mL of a 1:10,000 solution of epinephrine for drug delivery. Coagulation for hemostasis using monopolar probe was successful. Estimated Blood Loss: Estimated blood loss: none. Post Op Diagnosis: - Normal esophagus. - Gastritis. - One non-bleeding duodenal ulcer with a nonbleeding visible vessel (Fo rrest Class IIa). Injected. Treated with a monopolar probe. - No specimens collected. Recommendation: - Return patient to [facility] for [facility]. - Use a proton pump inhibitor IV BID. - Clear liquid diet. - Complete H.Pylori therapy. Will need a test of cure in 6-8 weeks afte r h.pylori therapy completed. - Follow Hgb, consider repeat EGD if has evidence of repeat bleeding (I have low concern for this, however). Attending Participation: I personally performed the entire procedure. Electronically Sigened by Abena Talbert MD> Abena Talbert MD 02/09/2017 10:09:32 AM This report has been signed electronically.Abena Talbert MD Number of Addenda: 0 Note Initiated On: 02/09/2017 9:35 AM [email or web address]
--- NOTE | 2017-02-09 13:05 | HOSPPROG ---
Hospitalist Progress Note Assessment/Plan: Patient is a 86 y/o male w hx of dementia who had a syncopal episode. He was on the toilet when he passed out. *syncope -occurred while on toilet -likely vasovagal,also likely due to loss of blood *UGI bleed w associated melena -s/p EGD 2 -h/h trended down despite getting a unit of blood -repeat EGD shows a non bleeding ulcer that was injected -h/h cont to trend down * H pylori -has a superficial duodenal ulcer -will initiate triple therapy/ started on 02/07,needs 14 days of treatment -dose was decreased due to his creat clearance for the abx *CKD -creat increase to 2.1/ secondary to blood loss -will follow *significant dementia -his friend is at the bedside and says this is his baseline -pt only oriented to himself *Lumbar pain -xray shows nothing acute -ambulating well *Plan : check h/h in a.m./ vital signs are stable/ will need SNF placement. Will ordered scheduled Tylenol. Subjective: Mustapha is agitated this afternoon/ says he hurts everywhere. Objective: Vital Signs Temp Pulse Resp BP Pulse Ox 36.8 C 70 16 118/66 92 02/09/17 12:45 02/09/17 12:45 02/09/17 12:45 02/09/17 12:45 02/09/17 12:45 Laboratory Results 02/09/17 09:11 02/08/17 05:43 02/08/17 02/09/17 02/10/17 05:59 05:59 05:59 Intake Total 750 750 350 Output Total 0 Balance 750 750 350 PT 15.2 SEC (12.0-15.0) H 02/06/17 12:20 INR 1.20 (0.83-1.16) H 02/06/17 12:20 - Physical Exam Constitutional: chronically ill appearing, uncomfortable Eyes: PERRL Ears, Nose, Mouth, Throat: hearing normal Cardiovascular: regular rate and rhythym Respiratory: no respiratory distress Gastrointestinal: normoactive bowel sounds, soft, non-tender abdomen Skin: warm, No normal color (pale) Musculoskeletal: generalized weakness Neurologic: other (oriented only to himself) Psychiatric: agitated ICD10 Worksheet Patient Problems: Problems Problem Status Onset Dementia Acute Lower GI bleed Acute Scalp laceration Acute Syncope Acute Coronary artery bypass grafting Active Altered mental status Acute
--- NOTE | 2017-02-09 13:19 | POSTANESTH ---
Post Anesthetic Evaluation Cardiovascular Status: Normal, Stable, Similar to Pre-Op Cond Respiratory Status: Normal, Stable, Similar to Pre-op Cond. Level of Consciousness/Mental Status: Can Participate in Eval, Other, See Comment (Dementia; Pleasantly demented and appropriate with anesthesiologist at time of evaluation, but nursing reports a waxing and waning picture of conciousness.) Pain Control: Adequate, Prn Tx Ordered Nausea/Vomiting Control: Adequate, Prn Tx Ordered Complications Possibly Related to Anesthesia: None Noted
[2017-02-09] MEDS: CLARITHROMYCIN 500 MG TAB PO SCH ×2 (13:31→20:39)
[2017-02-09] MEDS: OMEGA-3 FATTY ACIDS 1,000 MG CAP PO SCH (13:31)
[2017-02-09] MEDS: ASCORBIC ACID 500 MG TAB PO SCH (13:31)
[2017-02-09] MEDS: RIVASTIGMINE 13.3 MG TD SCH (13:32)
[2017-02-09] MEDS: VENLAFAXINE XR 37.5 MG CAP PO SCH (13:32)
[2017-02-09] MEDS: PANTOPRAZOLE SODIUM 40 MG TAB PO SCH ×2 (13:32→20:39)
--- NOTE | 2017-02-09 14:08 | ASMTCMCOM ---
CM Note CM Note Notes: Spoke w/dtr Floresita re; dc poc. PT/OT recommend SNF, and dtr will pick snf and let CM know. Pt and are planning to move into [facility]. Date Signed: 02/09/2017 02:07 PM Electronically Signed By:Danay Cramer RN
--- NOTE | 2017-02-09 18:20 | ASMTCMCOM ---
CM Note CM Note Notes: Spoke w/taylor, [facility] choice but no beds. 2nd choice [facility], referral sent. Date Signed: 02/09/2017 06:20 PM Electronically Signed By:Danay Cramer RN
[2017-02-09] MEDS: ATORVASTATIN CALCIUM 40 MG TAB PO SCH (20:39)
[2017-02-09] MEDS: TAMSULOSIN HCL 0.4 MG CAP PO SCH (20:39)
[2017-02-09] MEDS: MELATONIN 3 MG TAB PO SCH (20:39)
[2017-02-09] MEDS: ACETAMINOPHEN 500 MG TAB PO SCH (20:39)
[2017-02-10] MEDS: LEVOTHYROXINE 75 MCG TAB PO SCH (05:40)
--- NOTE | 2017-02-10 10:07 | HOSPPROG ---
Hospitalist Progress Note Assessment/Plan: Patient is a 86 y/o male w hx of dementia who had a syncopal episode. He was on the toilet when he passed out. *syncope -occurred while on toilet -likely vasovagal,also likely due to loss of blood *UGI bleed w associated melena -s/p EGD 2 -h/h trended down despite getting a unit of blood -repeat EGD shows a non bleeding ulcer that was injected -nursing staff to get labs/ patient has been refusing -has been on clears/ but will start on regular diet * H pylori -has a superficial duodenal ulcer -will initiate triple therapy/ started on 02/07,needs 14 days of treatment -dose was decreased due to his creat clearance for the abx *CKD -creat increase to 2.1 -will follow/ RN attempting to get labs *significant dementia -reviewed w his daughter, at his baseline *Lumbar pain -xray shows nothing acute -ambulating well *Plan : CM discussing with patient's daughter about plan of care Subjective: Shailesh has no complaints. Objective: Vital Signs Temp Pulse Resp BP Pulse Ox 36.3 C 88 16 123/62 H 92 02/10/17 09:14 02/10/17 09:14 02/10/17 09:14 02/10/17 09:14 02/10/17 04:00 Laboratory Results 02/09/17 09:11 02/08/17 05:43 02/09/17 02/10/17 02/11/17 05:59 05:59 05:59 Intake Total 750 600 Output Total 0 Balance 750 600 PT 15.2 SEC (12.0-15.0) H 02/06/17 12:20 INR 1.20 (0.83-1.16) H 02/06/17 12:20 - Physical Exam Constitutional: no apparent distress, chronically ill appearing Eyes: PERRL Ears, Nose, Mouth, Throat: hearing normal Respiratory: no respiratory distress Gastrointestinal: normoactive bowel sounds, soft, non-tender abdomen Skin: warm, No normal color (pale) Musculoskeletal: generalized weakness Neurologic: other (alert, oriented to himself and his daughter) Psychiatric: poor judgement, poor memory ICD10 Worksheet Patient Problems: Problems Problem Status Onset Dementia Acute Lower GI bleed Acute Scalp laceration Acute Syncope Acute Coronary artery bypass grafting Active Altered mental status Acute
[2017-02-10] MEDS: OMEGA-3 FATTY ACIDS 1,000 MG CAP PO SCH (11:54)
[2017-02-10] MEDS: ASCORBIC ACID 500 MG TAB PO SCH (11:54)
[2017-02-10] MEDS: CLARITHROMYCIN 500 MG TAB PO SCH ×2 (11:54→20:01)
[2017-02-10] MEDS: PANTOPRAZOLE SODIUM 40 MG TAB PO SCH ×2 (11:55→20:04)
[2017-02-10] MEDS: ACETAMINOPHEN 500 MG TAB PO SCH ×3 (11:55→21:22)
[2017-02-10] MEDS: VENLAFAXINE XR 37.5 MG CAP PO SCH (11:56)
[2017-02-10] MEDS: RIVASTIGMINE 13.3 MG TD SCH (12:14)
[2017-02-10 12:19] LABS: HEMATOCRIT 23.3 % (40.0-51.0); HEMOGLOBIN 7.5 g/dL (13.7-17.5)
[2017-02-10 12:34] LABS: ALANINE AMINOTRANSFERASE 33 IU/L (21-72); ALBUMIN 2.8 g/dL (3.5-5.0); ALKALINE PHOSPHATASE 61 IU/L (38-126); ANION GAP 9 mEq/L (8-16); ASPARTATE AMINOTRANSFERASE 26 IU/L (17-59); BILIRUBIN,TOTAL 0.7 mg/dL (0.1-1.4); CALCIUM 8.4 mg/dL (8.5-10.4); CARBON DIOXIDE 19 mEq/l (22-31); CHLORIDE 115 mEq/L (97-110); CREATININE 1.4 mg/dL (0.7-1.3); GLOMERULAR FILTRATION RATE 48; GLUCOSE 88 mg/dL (70-100); POTASSIUM 4.2 mEq/L (3.5-5.2); SODIUM 143 mEq/L (134-144); TOTAL PROTEIN 5.2 g/dL (6.3-8.2)
--- NOTE | 2017-02-10 15:45 | ASMTCMCOM ---
CM Note CM Note Notes: 02/10/2017 Case Management Note Conference call with stepdaughter Floresita and Veronica. Pt and to move into the [facility] on Sunday. Discussed best options for the least disruption for pt d/t dementia. Option #1: [facility] SN[facility] rehab then moving into the [facility]. Option #2: Move into the [facility] and add [facility] funeral home associate PT OT TALENT ACQUISITION ADMINISTRATOR and SW. Family requested referrals sent to both [facility] and [facility] Home care, family plans to make decision closer to d/c. Case Management faxed referrals as requested. Case Management to follow. Date Signed: 02/10/2017 03:44 PM Electronically Signed By:Cari Bach RN
[2017-02-10] MEDS: ATORVASTATIN CALCIUM 40 MG TAB PO SCH (20:03)
[2017-02-10] MEDS: MELATONIN 3 MG TAB PO SCH (20:03)
[2017-02-10] MEDS: TAMSULOSIN HCL 0.4 MG CAP PO SCH (20:04)
[2017-02-11] MEDS: LEVOTHYROXINE 75 MCG TAB PO SCH (04:39)
[2017-02-11 04:57] LABS: HEMATOCRIT 22.5 % (40.0-51.0); HEMOGLOBIN 7.3 g/dL (13.7-17.5)
[2017-02-11] MEDS ORDERED: ACETAMINOPHEN 325 MG TAB PO ONE (07:48)
--- NOTE | 2017-02-11 08:29 | SOAPPROG ---
SOAP Progress Note Assessment/Plan: Assessment:Plan: pt seen Sunday 1) UGI bleed - stable HB/HCT decreasing BUN/Cr c/w hydration no overt bleeding, follow clinically, H/H, BUN/cr ratio. DU s/p treatment on h pylori tx and PIP BID 2) anemia - hydration, not c/w re bleed, follow, no need for PRBC at present 3) DU/H pylori - PPI BID for 2 weeks, then daily for total of 8 weeks. PCP to decide about intermediate accountant prophylaxis. Check h plyori stool AG not sooner then 3 months post tx and off PPI for approx 2-3 weeks will follow 02/11/17 08:29 Subjective: CC- UGI bleed form DU pt w/o gi complaints, no bm today no n/v no overt bleed Objective: Vital Signs Temp Pulse Resp BP Pulse Ox 37.0 C 70 18 119/65 95 02/11/17 04:00 02/11/17 04:00 02/11/17 04:00 02/11/17 04:00 02/11/17 04:00 Laboratory Results 02/11/17 04:24 02/10/17 12:08 02/10/17 02/11/17 02/12/17 05:59 05:59 05:59 Intake Total 600 400 Output Total 0 Balance 600 400 PT 15.2 SEC (12.0-15.0) H 02/06/17 12:20 INR 1.20 (0.83-1.16) H 02/06/17 12:20 Alert but not oriented 114/55, HR = 76, RR = 16, T = 36.7 CTA S1S2 +BS, soft nt Laboratory Tests 02/07/17 02/08/17 02/08/17 Unknown 05:43 05:43 Hgb 7.1 L Hct 22.9 L BUN 71 H Creatinine 2.1 H H. pylori IgG Antibody POSITIVE H 02/08/17 02/09/17 02/09/17 17:40 00:50 09:11 Hgb 8.3 L 7.5 L 8.2 L Hct 25.2 L 22.5 L 24.9 L BUN Creatinine H. pylori IgG Antibody 02/10/17 02/10/17 12:08 12:08 Hgb 7.5 L Hct 23.3 L BUN 37 H Creatinine 1.4 H H. pylori IgG Antibody ICD10 Worksheet Patient Problems: Problems Problem Status Onset Dementia Acute Lower GI bleed Acute Scalp laceration Acute Syncope Acute Coronary artery bypass grafting Active Altered mental status Acute
[2017-02-11 08:41] VITALS: TEMP 97.5
--- NOTE | 2017-02-11 10:04 | HOSPPROG ---
Hospitalist Progress Note Assessment/Plan: Patient is a 86 y/o male w hx of dementia who had a syncopal episode. He was on the toilet when he passed out. *syncope -occurred while on toilet -likely vasovagal,also likely due to loss of blood -none further *UGI bleed w associated melena -s/p EGD 2 -has trended down a bit/ will transfuse another unit of blood/ patient is exhausted and being 86 y/o will take a period of time to replete -he will of received a total of 2 units * H pylori/DU -has a superficial duodenal ulcer -will initiate triple therapy/ started on 02/07,needs 14 days of treatment -dose was decreased due to his creat clearance for the abx -will need PPI bid x 2 week, then daily for total of 8 weeks -Check h plyori stool AG not sooner then 3 months post treatment and off PPI for approx 2-3 weeks *CKD -creat 1.4/much improved w transfusion -will follow/ RN attempting to get labs *significant dementia -reviewed w his daughter, at his baseline *Lumbar pain -xray shows nothing acute -ambulating well *Plan : CM to ask [facility] to evaluate/ poss dc later today Subjective: Shailesh says he's very tired. Objective: Vital Signs Temp Pulse Resp BP Pulse Ox 36.4 C 59 L 18 124/63 H 94 02/11/17 08:00 02/11/17 08:00 02/11/17 08:00 02/11/17 08:00 02/11/17 08:00 Laboratory Results 02/11/17 04:24 02/10/17 12:08 02/10/17 02/11/17 02/12/17 05:59 05:59 05:59 Intake Total 600 400 Output Total 0 Balance 600 400 PT 15.2 SEC (12.0-15.0) H 02/06/17 12:20 INR 1.20 (0.83-1.16) H 02/06/17 12:20 - Physical Exam Constitutional: not in pain, chronically ill appearing Eyes: PERRL Ears, Nose, Mouth, Throat: hearing normal Cardiovascular: regular rate and rhythym Respiratory: no respiratory distress Gastrointestinal: normoactive bowel sounds Skin: warm, No normal color (pale) Musculoskeletal: generalized weakness Neurologic: other (oriented to himself/ knows he is in the hospital) Psychiatric: interacting appropriately, not anxious ICD10 Worksheet Patient Problems: Problems Problem Status Onset Dementia Acute Lower GI bleed Acute Scalp laceration Acute Syncope Acute Coronary artery bypass grafting Active Altered mental status Acute
[2017-02-11] MEDS: CLARITHROMYCIN 500 MG TAB PO SCH (10:27)
[2017-02-11] MEDS: ASCORBIC ACID 500 MG TAB PO SCH (10:27)
[2017-02-11] MEDS: OMEGA-3 FATTY ACIDS 1,000 MG CAP PO SCH (10:27)
[2017-02-11] MEDS: VENLAFAXINE XR 37.5 MG CAP PO SCH (10:27)
[2017-02-11] MEDS: ACETAMINOPHEN 500 MG TAB PO SCH (10:28)
[2017-02-11] MEDS: PANTOPRAZOLE SODIUM 40 MG TAB PO SCH (10:28)
[2017-02-11] MEDS: RIVASTIGMINE 13.3 MG TD SCH (10:33)
[2017-02-11 11:44] VITALS: BP 125/58; PULSE 57; RESP 16; O2SAT 95
--- NOTE | 2017-02-11 11:59 | PDIAF ---
- Diagnosis Diagnosis: upper gi bleed/ duodenal ulcer/ h pylori, dementia Code Status: Full Code - Medication Management Discharge Medications: Medications to Continue on Transfer Tamsulosin HCl 0.4 mg PO DAILY@19 05/05/11 [Last Taken 02/05/17] Atorvastatin Calcium [Lipitor 40 mg (*)] 40 mg PO HS 06/13/11 [Last Taken ] Herbals/Supplements -Info Only 1 ea PO DAILY 03/01/15 [Last Taken Unknown] Levothyroxine [Synthroid 75 mcg (*)] 75 mcg PO DAILY06 03/01/15 [Last Taken ] Ascorbic Acid [Vitamin C 500 mg (*)] 1,000 mg PO DAILY 02/06/17 [Last Taken ] Cetirizine [ZyrTEC 10 mg (*)] 10 mg PO HS PRN 02/06/17 [Last Taken 02/05/17] Magnesium Oxide [Magnesium Oxide 400 mg (*)] 400 mg PO HS 02/06/17 [Last Taken 02/05/17] [place]-3 Fatty Acids [Fish Oil 1000 mg (*)] 1,000 mg PO DAILY 02/06/17 [Last Taken 02/05/17] Rivastigmine [Exelon] 1 each TD DAILY 02/06/17 [Last Taken 02/05/17] Venlafaxine Xr [Effexor Xr 75MG (*)] 37.5 - 75 mg PO DAILY 02/06/17 [Last Taken 02/06/17 37.5MG] Acetaminophen [Tylenol ES 500 mg (*)] 1,000 mg PO TID tab 02/11/17 [Last Taken Unknown] Amoxicillin Trihydrate [Amoxil] 500 mg PO BID #0 cap 02/11/17 [Last Taken Unknown] Clarithromycin [Biaxin (*)] 250 mg PO BID #9 tab 02/11/17 [Last Taken Unknown] Melatonin [Melatonin 3 MG (*)] 3 mg PO HS tab 02/11/17 [Last Taken Unknown] Pantoprazole Sodium [Protonix 40mg (*)] 40 mg PO BID tab 02/11/17 [Last Taken Unknown] Discharge Medications: Refer to the Discharge Home Medication list for PRN reason. - Orders Services needed: Physical Therapy, Occupational Therapy Diet Recommendation: no restrictions on diet Diet Texture: Regular Texture Diet Additional: -has a superficial duodenal ulcer. -on triple therapy/ started on 02/07,needs 14 days of treatment. So will need antibiotics for 9 more days. - dose was decreased due to his creat clearance for the abx. -will need PPI bid x 2 week, then daily for total of 8 weeks. -Check h plyori stool AG not sooner then 3 months post treatment and off PPI for approx 2-3 weeks/ aspirin was stopped due to gi bleed. - Labs/Radiology BMP Date: 02/15/17 CBC Date: 02/15/17 - Follow Up Care Current Providers and Referrals: Jarrod Iniguez MD [Primary Care Provider] - As per Instructions Abena Talbert MD [Medical Doctor] -
--- NOTE | 2017-02-11 12:54 | SOAPPROG ---
TAD Progress Note Assessment/Plan: Assessment:Plan: pt seen Sunday afternoon 1) UGI bleed - stable HB/HCT decreasing BUN/Cr c/w hydration no overt bleeding, follow clinically, H/H, BUN/cr ratio. DU s/p treatment on h pylori tx and PIP BID 2) anemia - hydration, not c/w re bleed, follow, no need for PRBC at present 3) DU/H pylori - PPI BID for 2 weeks, then daily for total of 8 weeks. PCP to decide about manager terminal prophylaxis. Check h plyori stool AG not sooner then 3 months post tx and off PPI for approx 2-3 weeks will follow 02/11/17 08:29 02/11/17 12:51 as above did receive anther PRBC for dilutional decrease in HB. 1) UGI bleed - DU s/p tx, no overt bleed, PPI BID for 2 weeks, then daily for another 4 weeks = 8 weeks total. May need manager terminal prophylaxis 2) anemia - c/w dilution - did get another unit PRBC to 'tank up' prior to dc 3) H yplori - as above check h pylori stool ag not sooner then 3 months post tx and off PPI for at least 2 weeks - can be on H2RA will sign off Subjective: cc- UGI bleed from DU, anemia from acute blood loss pt says stool is brown, no pain no n/v Objective: Vital Signs Temp Pulse Resp BP Pulse Ox 36.4 C 57 L 16 125/58 H 95 02/11/17 11:43 02/11/17 11:43 02/11/17 11:43 02/11/17 11:43 02/11/17 11:43 Laboratory Results 02/11/17 04:24 02/10/17 12:08 02/10/17 02/11/17 02/12/17 05:59 05:59 05:59 Intake Total 600 400 Output Total 0 Balance 600 400 PT 15.2 SEC (12.0-15.0) H 02/06/17 12:20 INR 1.20 (0.83-1.16) H 02/06/17 12:20 alert but not oriented CTA S1S2 +BS, soft NT Laboratory Tests 02/08/17 02/08/17 02/09/17 05:43 17:40 00:50 Hgb 8.3 L 7.5 L BUN 71 H Creatinine 2.1 H 02/09/17 02/10/17 02/10/17 09:11 12:08 12:08 Hgb 8.2 L 7.5 L BUN 37 H Creatinine 1.4 H 02/11/17 04:24 Hgb 7.3 L BUN Creatinine ICD10 Worksheet Patient Problems: Problems Problem Status Onset Dementia Acute Lower GI bleed Acute Scalp laceration Acute Syncope Acute Coronary artery bypass grafting Active Altered mental status Acute
--- NOTE | 2017-02-11 12:56 | GDS ---
[f rep st] DISCHARGE SUMMARY DISCHARGE DIAGNOSES: 1. Syncopal event/vasovagal. 2. Upper gastrointestinal bleed with associated melena. 3. Helicobacter pylori, duodenal ulcer. 4. Chronic kidney disease. 5. Significant dementia. 6. Lumbar pain. CONSULTATION: 1. Dr. Abena Talbert. 2. Dr. Royer Connor. HISTORY OF PRESENT ILLNESS: Briefly, the patient is an 86-year-old male with history of dementia, wh o had a syncopal episode while he was on the toilet. This was likely secondary to vasovagal and bloo d loss. HOSPITAL COURSE: 1. Syncopal event, most likely vasovagal. He has had none further. 2. Upper GI bleed with associated melena. His hemoglobin and hematocrit decreased during his stay, so he had an EGD x2. It did not show that he had a bleeding ulcer. He has been given a total of 2 u nits of packed red blood cells during his hospital stay. 3. H pylori duodenal ulcer. He has a superficial duodenal ulcer. He was initiated on triple therap y on February 07. He will need a total of 14 days of treatment. His dose was decreased due to his cr eatinine clearance for the antibiotics. He will need a PPI twice daily x2 weeks, then daily for a to safia of 8 weeks. He needs to get an H pylori stool AG not sooner than 3 months post treatment and off PPI for approximately 2-3 weeks. 4. Chronic kidney disease. This improved with getting a transfusion. His most recent creatinine is 1.4. 5. Significant dementia at his baseline. 6. Lumbar pain. His x-ray shows nothing acute. He is ambulating well. DISCHARGE CONDITION: Stable. Blood pressure is 125/58, heart rate 57, respiratory rate 16, O2 sats on room air 95%, temperature is 36.4 Celsius. MEDICATIONS AT DISCHARGE: Please see the EMR. He will be on triple therapy for the duodenal ulcer. Aspirin has been discontinued. DISCHARGE INSTRUCTIONS: 1. To follow up with Gastroenterology. 2. He will need to get H pylori followup as noted. TIME SPENT: Greater than 30 minutes in discharging and coordinating his care. /[id number]/MODL
--- NOTE | 2017-02-11 17:00 | ASMTCMCOM ---
CM Note CM Note Notes: Reviewed chart, spoke w/ ANIKA Weber, Opal Mancilla, MAREN re: d/c poc, pt's progress. Per OFFSET MACHINE OPERATOR, pt to discharge to SNF today following 1 unit of PRBCs. Met w/ Floresita, pt's step-dghtr to discuss SNF options. Floresita open to [facility]. Call placed to Milena at ; per Milena able to accept pt pending on-site eval. Milena saw pt at 1130 and accepted; bed available today. Update provided to Opal Mancilla, discharge orders written and faxed via [employer] to ; confirmed receipt w/ Milena. PASRR faxed manually d/t issues w/ [employer]. Transportation arranged and to be paid for by Milena at . [facility] PCS form completed; pt to transport via stretcher d/t signif dementia, safety concerns. Pt to leave at 1500; updates provided to Floresita and ANIKA Weber. IM signed. Pt to f/u as directed. CM avail for any further issues or concerns. Date Signed: 02/11/2017 05:00 PM Electronically Signed By:Deepa Rao RN
--- NOTE | 2017-02-11 17:01 | ASDISCHSUM ---
Discharge Information Plan Status:SNF Medically Cleared to Leave:02/11/2017 Discharge Date:02/11/2017 03:43 PM CM D/C Disposition:Assisted Facility ADT D/C Disposition:Assisted Facility Projected Discharge Date:02/11/2017 03:00 PM Transportation at D/C:ALS/BLS Discharge Delay Reason: Follow-Up Date:02/11/2017 03:00 PM Discharge Slot:2 - 12:01 pm - 18:00 pm Final Diagnosis:Syncopal event, vasovagal, upper GI bleed w/ assoc melena, H pylori, duodenal ulcer, chronic kidney dx, signif dementia, lumbar pain Placement Information Referral Type:*Longterm/SNF Referral ID:[id number] Provider Name:[facility] Address 1:[address] Address 2: City:[place] Selection Factors:Patient/Family Choice State:[place] Referral Type:*Home Health Care Services Referral ID:[id number] Provider Name: Address 1: Phone Number: Address 2: Fax Number: City: Selection Factors:Patient/Family Choice State: Patient Contact Information Contact Name:COSTA Relationship: Address:[address] City:[place] Alternate Phone: State/Zip Code:[place] [address] Email: Financial Information Financial Class: Primary Plan Desc:MEDICARE INPATIENT Primary Plan Number:[id number] Secondary Plan Desc:RITA/MITZI SUPPLEMENT Secondary Plan Number:[id number] Assessment Information [facility] CM Progress Note CM Note CM Note Notes: Dc needs unclear, pt has hx of dementia, lives in home w/. PT/OT kina moore, CM w/f. Date Signed: 02/07/2017 10:35 AM Electronically Signed By:Danay Cramer RN BC CM Progress Note CM Note CM Note Notes: Spoke w/dtr Floresita re; dc poc. PT/OT recommend SNF, and dtr will pick snf and let CM know. Pt and are planning to move into [facility]. Date Signed: 02/09/2017 02:07 PM Electronically Signed By:Danay Cramer RN BC CM Progress Note CM Note CM Note Notes: Spoke w/dtrCosta 1st choice but no beds. 2nd choice [facility], referral sent. Date Signed: 02/09/2017 06:20 PM Electronically Signed By:Danay Craemr RN [facility] CM Progress Note CM Note CM Note Notes: 02/10/2017 Case Management Note Conference call with stepdaughter Floresita and Veronica. Pt and to move into the [facility] on Sunday. Discussed best options for the least disruption for pt d/t dementia. Option #1: [facility] SNF rehab then moving into the [facility]. Option #2: Move into the [facility] and add BC supervisor home restoration service PT OT FACULTY RESEARCH ASSISTANT and SW. Family requested referrals sent to both [facility] and [facility] Home care, family plans to make decision closer to d/c. Case Management faxed referrals as requested. Case Management to follow. Date Signed: 02/10/2017 03:44 PM Electronically Signed By:Cari Bach RN [facility] CM Progress Note CM Note CM Note Notes: Reviewed chart, spoke w/ ANIKA Weber, Opal Mancilla NP re: d/c poc, pt's progress. Per CONVEYOR LINE BAKERY WORKER, pt to discharge to SNF today following 1 unit of PRBCs. Met w/ Floresita, pt's step-dghtr to discuss SNF options. Floresita open to [facility]. Call placed to Milena at ; per Milena able to accept pt pending on-site eval. Milena saw pt at 1130 and accepted; bed available today. Update provided to Opal Mancilla, discharge orders written and faxed via [employer] to ; confirmed receipt w/ Milena. MADONNA faxed manually d/t issues w/ [employer]. Transportation arranged and to be paid for by Milena at . [facility] PCS form completed; pt to transport via stretcher d/t signif dementia, safety concerns. Pt to leave at 1500; updates provided to Floresita and ANIKA Weber. IM signed. Pt to f/u as directed. CM avail for any further issues or concerns. Date Signed: 02/11/2017 05:00 PM Electronically Signed By:Deepa Rao RN Intervention Information Intervention Type:*Incorrect Registration Date of Service:02/07/2017 09:18 AM Patient Type:Inpatient Staff Member:ANIKA Garcia, Stella Hours: Discipline: Severity: Comment: Intervention Type:*IM-Signed Date of Service:02/11/2017 04:51 PM Patient Type:Inpatient Staff Member:ANIKA Rao Taylor Hours: Discipline: Severity: Comment: Intervention Type:Education Family/Patient Date of Service:02/11/2017 04:52 PM Patient Type:Inpatient Staff Member:ANIKA Rao Taylor Hours:0.25 Discipline: Severity: Comment:Met w/ pt's step-dghtr Floresita to discus s needs, transfer to SNF, d/c poc. Education on SNF process provided. Questions answered.
== END 2017-02-11 15:43 | DRG 378 ==
LOC: EDUNIT# → INTOOBSV 14:47 → F3E 15:53 → OBSVTOIN 02-07 15:26 → F3E 02-09 16:56
PROVIDERS: ADMIT Family Medicine; ATTEND Family Medicine
DX: K26.4 Chronic or unspecified duodenal ulcer with hemorrhage (principal); B96.81 Helicobacter pylori [H. pylori] as the cause of diseases classified elsewhere; K21.0 Gastro-esophageal reflux disease with esophagitis; K29.70 Gastritis, unspecified, without bleeding; D62 Acute posthemorrhagic anemia; R55 Syncope and collapse; S01.01XA Laceration without foreign body of scalp, initial encounter; W18.11XA Fall from or off toilet without subsequent striking against object, initial encounter; Y93.E8 Activity, other personal hygiene; Y92.012 Bathroom of single-family (private) house as the place of occurrence of the external cause; Y99.8 Other external cause status; F03.90 Unspecified dementia, unspecified severity, without behavioral disturbance, psychotic disturbance, mood disturbance, and anxiety; M54.5 Low back pain; N18.9 Chronic kidney disease, unspecified; I25.10 Atherosclerotic heart disease of native coronary artery without angina pectoris; Z95.1 Presence of aortocoronary bypass graft; Z95.5 Presence of coronary angioplasty implant and graft; Z79.82 Long term (current) use of aspirin; I10 Essential (primary) hypertension; E78.5 Hyperlipidemia, unspecified; E03.9 Hypothyroidism, unspecified; Z85.46 Personal history of malignant neoplasm of prostate; Z87.891 Personal history of nicotine dependence
CPT/HCPCS: 96374; 97116-GP; 97162-GP; 97166-GO; 97535-GO; G0378; G8978-GP-CM; G8979-GP-CJ; G8987-GO-CM; G8988-GO-CK; J0171; J2001; J2704; P9016; P9040

== ENCOUNTER 2017-03-02 06:30 | Emergency (ER) | payer OTHER, MEDICARE ==
[2017-03-02 06:38] VITALS: TEMP 97.9
[2017-03-02 07:01] LABS: % IMMATURE GRANULYOCYTES 0.4 % (0.0-1.1); ABSOLUTE IMMATURE GRANULOCYTES 0.02 10^3/uL (0.00-0.10); ADD DIFF? NO; ADD MORPH? NO; ADD SCAN? NO; ATYPICAL LYMPHOCYTE FLAG 0 (0-99); FRAGMENT RBC FLAG 0 (0-99); HEMATOCRIT 29.7 % (40.0-51.0); HEMOGLOBIN 9.6 g/dL (13.7-17.5); LEFT SHIFT FLG 0 (0-99); LIPEMIA HEMOLYSIS FLAG 80 (0-99); MEAN CELL HEMOGLOBIN 27.7 pg (27.9-34.1); MEAN CELL HEMOGLOBIN CONCENTR. 32.3 g/dL (32.4-36.7); MEAN CELL VOLUME 85.6 fL (81.5-99.8); MEAN PLATELET VOLUME 9.2 fL (8.7-11.7); PLATELET CLUMPS FLAG 0 (0-99); PLATELET COUNT 247 10^3/uL (150-400); RED BLOOD CELL COUNT 3.47 10^6/uL (4.40-6.38); RED CELL DISTRIBUTION WIDTH 15.4 % (11.5-15.2)
--- NOTE | 2017-03-02 07:03 | EDPHY ---
HPI/HX/ROS/PE/MDM Narrative: CHIEF COMPLAINT: Fall HPI: This patient is an 86 year old male with history of dementia arriving via EMS from the [facility] for evaluation following a mechanical fall around one hour ago. He states he struck his head, but denies any loss of consciousness. He cannot identify any precipitating factors. He denies chest pain or shortness of breath. Currently, his mid back hurts, particularly on the right side. His neck hurts intermittently. He did not walk following the incident. An [employer] staff member at bedside states he fell yesterday morning as well and felt a little sore following. He was recently admitted 02/06/17 for treatment of a GI bleed, and has been back at his home for about 1.5 weeks. She states he has lost about 14 pounds during that time. The staff member reports that frequent falls are unusual for this patient. Further HPI difficult to obtain, patient is a poor historian due to dementia. [employer] staff at bedside states he seems to be at his baseline cognitive status. REVIEW OF SYSTEMS: Aside from elements discussed in the HPI, a comprehensive 10-point review of systems was reviewed and is negative. PMH: 1. CAD s/p CABG and stent placement 2. Hypertension 3. Dyslipidemia 4. Dementia 5. Hypothyroidism 6. History of prostate cancer 7. Chronic lumbar pain. Past medical records reviewed including admission 02/06/17 for GI bleed and syncope. SOCIAL HISTORY: Lives at the [facility]. . Former smoker. PHYSICAL EXAM: General: Patient is alert, in no acute distress. ENT:Eyes are normal to inspection. ENT inspection normal. Neck: Normal inspection. Full range of motion. Respiratory:No respiratory distress. Breath sounds normal bilaterally. Cardiovascular: Regular rate and rhythm. Strong peripheral pulses. Normal cap refill. Abdomen:The abdomen is nontender to palpation. There are no peritoneal signs. There are normal bowel sounds. Back: Normal to inspection. No tenderness to palpation. Skin: Normal color. No rash. Warm and dry. Extremities: Abrasion to right elbow. Full range of motion. Neuro: Oriented x3. Normal motor function. Normal sensory function. ED Course: 77 y/o male with history of dementia presents following a mechanical fall. Exam reveals abrasion to his right elbow, no other acute findings. Plan for EKG, labs including CBC, BMP, Troponin. Plan to clean abrasion and apply LET. Plan for CT head and cervical spine. Plan for x-rays of pelvis, lumbar spine, right elbow, and chest. The patient was recently admitted for treatment of upper GI bleed, duodenal ulcer, and syncopal event. Additionally, he has chronic kidney disease and chronic elevated creatinine, most recently 1.4 following transfusion. The patient's states he recently started taking Seroquel, 50mg on Sunday, three days ago. He has been more fatigued since that time. 08:[address] Mancilla, radiologist. CT head and cervical spine negative for acute processes. The patient's creatinine today is 1.8. Troponin negative (0.014). Reviewed x- rays. No evidence of acute fracture, pending radiologist review. 09:38 X-ray studies negative with the exception of new right-sided seventh rib fracture. Spoke with Dr. Mancilla, radiologist. Unknown whether fracture is acute or new since prior x-ray in 2014. Reexamined patient. He had no tenderness to palpation in the area of the right seventh rib. Suspect past injury rather than acute process. Stepdaughter present at bedside. I discussed care and she is comfortable with discharge home and arrangement of 24 hour care due to his recent falls. Case management will evaluate this patient prior to discharge. Plan to discharge home in good condition as discussed above. Follow up and return precautions discussed. The patient and his family are comfortable with this plan. - Data Points Imaging Results: Imaging Impressions Elbow X-Ray 03/02/17 06:46 Impression: Normal. Cervical Spine CT 03/02/17 07:10 Impression: Elderly brain. No acute traumatic sequelae are identified. Report telephoned to Dr. Hurt [place] [address] Scan of Cervical Spine (Without Contrast) Clinical Indications: Fell from standing. Technique: Multidetector helical CT of the cervical spine was performed using dose reduction technology. Axial, sagittal, and coronal images were reviewed. Findings: No fractures are found. The spinal canal is adequate in size. No evidence of herniated disk or hematoma. Distance between clivus and the odontoid process is larger than average, but the atlantooccipital joints are normal. Alignment is kyphotic. The facet joints and spinous processes are fused at C2-C3. Intervertebral disks are degenerated at C3-C4, C4-C5, C5-C6, and C6- C7. Impression: No acute traumatic sequelae. I telephoned results to Dr. Ad Hurt at [address] 03/02/17 07:10 Impression: Elderly brain. No acute traumatic sequelae are identified. Report telephoned to Dr. Hurt [place] [address] Scan of Cervical Spine (Without Contrast) Clinical Indications: Fell from standing. Technique: Multidetector helical CT of the cervical spine was performed using dose reduction technology. Axial, sagittal, and coronal images were reviewed. Findings: No fractures are found. The spinal canal is adequate in size. No evidence of herniated disk or hematoma. Distance between clivus and the odontoid process is larger than average, but the atlantooccipital joints are normal. Alignment is kyphotic. The facet joints and spinous processes are fused at C2-C3. Intervertebral disks are degenerated at C3-C4, C4-C5, C5-C6, and C6- C7. Impression: No acute traumatic sequelae. I telephoned results to Dr. Ad Hurt at 0858 hours. Chest X-Ray 03/02/17 07:13 Impression: 1. New fracture of right seventh rib. 2. Coronary artery bypass graft and coronary arterial stent. Lumbar Spine X-Ray 03/02/17 07:13 Impression: No acute traumatic sequelae in the lumbar spine. Pelvis X-Ray 03/02/17 07:13 Impression: Negative. Imaging: Discussed imaging studies w/ surgical pathologist Radiologist, I viewed and interpreted images myself Laboratory Results: Laboratory Results 03/02/17 06:50 03/02/17 06:50 03/02/17 03/02/17 06:50 06:50 WBC 5.31 10^3/uL 10^3/uL (3.80-9.50) RBC 3.47 10^6/uL L 10^6/uL (4.40-6.38) Hgb 9.6 g/dL L g/dL (13.7-17.5) Hct 29.7 % L % (40.0-51.0) MCV 85.6 fL fL (81.5-99.8) MCH 27.7 pg L pg (27.9-34.1) MCHC 32.3 g/dL L g/dL (32.4-36.7) RDW 15.4 % H % (11.5-15.2) Plt Count 247 10^3/uL 10^3/uL (150-400) MPV 9.2 fL fL (8.7-11.7) Neut % (Auto) 64.2 % % (39.3-74.2) Lymph % (Auto) 16.8 % % (15.0-45.0) [place] % (Auto) 10.5 % % (4.5-13.0) Eos % (Auto) 7.3 % % (0.6-7.6) Baso % (Auto) 0.8 % % (0.3-1.7) Nucleat RBC Rel Count 0.0 % % (0.0-0.2) Absolute Neuts (auto) 3.41 10^3/uL 10^3/uL (1.70-6.50) Absolute Lymphs (auto) 0.89 10^3/uL L 10^3/uL (1.00-3.00) Absolute Monos (auto) 0.56 10^3/uL 10^3/uL (0.30-0.80) Absolute Eos (auto) 0.39 10^3/uL 10^3/uL (0.03-0.40) Absolute Basos (auto) 0.04 10^3/uL 10^3/uL (0.02-0.10) Absolute Nucleated RBC 0.00 10^3/uL 10^3/uL (0-0.01) Immature Gran % 0.4 % % (0.0-1.1) Immature Gran # 0.02 10^3/uL 10^3/uL (0.00-0.10) Sodium 135 mEq/L mEq/L (134-144) Potassium 5.5 mEq/L H mEq/L (3.5-5.2) Chloride 107 mEq/L mEq/L (97-110) Carbon Dioxide 21 mEq/l L mEq/l (22-31) Anion Gap 7 mEq/L L mEq/L (8-16) BUN 36 mg/dL H mg/dL (7-23) Creatinine 1.8 mg/dL H mg/dL (0.7-1.3) Estimated GFR 36 Glucose 87 mg/dL mg/dL (70-100) Calcium 8.3 mg/dL L mg/dL (8.5-10.4) Troponin I 0.014 ng/mL ng/mL (0.000-0.034) Medications Given: Discontinued Medications Sodium Chloride (Ns) 500 mls @ 1,000 mls/hr IV EDNOW ONE PRN Reason: Protocol Stop: 03/02/17 08:19 Last Admin: 03/02/17 07:53 Dose: 500 mls Tetracaine/Epinephrine/Lidocaine (Let Gel Topical) 1 ea TP EDNOW ONE Stop: 03/02/17 07:14 Last Admin: 03/02/17 07:16 Dose: 1 ea General Time Seen by Provider: 03/02/17 06:47 Initial Vital Signs: Initial Vital Signs Temperature (C) 36.6 C 03/02/17 06:33 Heart Rate 68 03/02/17 06:33 Respiratory Rate 18 03/02/17 06:33 Blood Pressure 133/59 H 03/02/17 06:33 O2 Sat (%) 94 03/02/17 06:33 O2 Delivery Mode Room Air Allergies/Adverse Reactions: No Known Allergies Allergy (Verified 02/06/17 12:24) Home Medications: Medication Instructions Recorded Tamsulosin HCl 0.4 mg PO DAILY@19 05/05/11 Atorvastatin Calcium [Lipitor 40 40 mg PO HS 06/13/11 mg (*)] Herbals/Supplements -Info Only 1 ea PO DAILY 03/01/15 Levothyroxine [Synthroid 75 mcg 75 mcg PO DAILY06 03/01/15 (*)] Ascorbic Acid [Vitamin C 500 mg 1,000 mg PO DAILY 02/06/17 (*)] Cetirizine [ZyrTEC 10 mg (*)] 10 mg PO HS PRN 02/06/17 Magnesium Oxide [Magnesium Oxide 400 mg PO HS 02/06/17 400 mg (*)] Rivastigmine [Exelon] 1 each TD DAILY 02/06/17 Venlafaxine Xr [Effexor Xr 75MG 37.5 - 75 mg PO DAILY 02/06/17 (*)] Acetaminophen [Tylenol ES 500 mg 1,000 mg PO TID tab 02/11/17 (*)] Melatonin [Melatonin 3 MG (*)] 3 mg PO HS tab 02/11/17 Pantoprazole Sodium [Protonix 40mg 40 mg PO BID tab 02/11/17 (*)] Seroquel 03/02/17 Departure - Departure Disposition: Home, Routine, Self-Care Clinical Impression: Fall at home Qualifiers: Encounter type: initial encounter Qualified Code(s): W19.XXXA - Unspecified fall, initial encounter Elbow abrasion Qualifiers: Encounter type: initial encounter Laterality: right Qualified Code(s): S50.311A - Abrasion of right elbow, initial encounter Dementia Qualifiers: Dementia type: unspecified type Dementia behavioral disturbance: with behavioral disturbance Qualified Code(s): F03.91 - Unspecified dementia with behavioral disturbance Condition: Good Instructions: Fall Prevention for Older Adults (ED), Abrasion (ED) Additional Instructions: 1. Follow up with your primary care physician within one week for continued evaluation. 2. Return to the emergency department for increased pain, further falls, severe headache, numbness or weakness in your extremities, chest pain, shortness of breath, fever, or other worsening of condition. Referrals: Jarrod Iniguez MD [Primary Care Provider] - As per Instructions Report Scribed for: Ad Hurt Report Scribed by: Natacha Leary Date of Report: 03/02/17 Time of Report: 07:02 Physician Review and Approval Statement: Portions of this note were transcribed by an ED scribe. I personally performed the history, physical exam, and medical decision making; and confirm the accuracy of the information in the transcribed note.
[2017-03-02] MEDS ORDERED: LET GEL TOPICAL 1 EA SYR TP ONE ×2 (07:12→07:13)
--- NOTE | 2017-03-02 07:22 | CPEKG ---
Heart Rate: 62 RR Interval: 968 P-R Interval: 196 QRSD Interval: 98 QT Interval: 412 QTC Interval: 419 P [place]: 47 QRS [place]: 62 T Wave [place]: 35 EKG Severity - NORMAL ECG - EKG Impression: SINUS RHYTHM Electronically Signed By: Rik Pak 03-Mar-2017 21:55:13
[2017-03-02 07:27] LABS: ANION GAP 7 mEq/L (8-16); CALCIUM 8.3 mg/dL (8.5-10.4); CARBON DIOXIDE 21 mEq/l (22-31); CHLORIDE 107 mEq/L (97-110); CREATININE 1.8 mg/dL (0.7-1.3); GLOMERULAR FILTRATION RATE 36; GLUCOSE 87 mg/dL (70-100); POTASSIUM 5.5 mEq/L (3.5-5.2); SODIUM 135 mEq/L (134-144)
[2017-03-02 07:38] LABS: TROPONIN I 0.014 ng/mL (0.000-0.034)
[2017-03-02] MEDS ORDERED: NS 500 ML IV ONE (07:50)
[2017-03-02 08:13] VITALS: RESP 14; O2SAT 96
[2017-03-02 09:59] VITALS: BP 120/60; PULSE 72
--- NOTE | 2017-03-02 12:36 | ASMTCMCOM ---
CM Note CM Note Notes: Patient admitted to ED after falling at the [facility], the [facility] where he lives with his . He was accompanied by his daugther and YANI. They do not have any discharge needs and stated that they will follow up with his PCP and the staff at the [facility] regarding recent medication changes. Date Signed: 03/02/2017 12:35 PM Electronically Signed By:Sushma Ramirez RN
== END 2017-03-02 09:58 | disposition home or self-care (01) ==
LOC: EDUNIT#
DX: S50.311A Abrasion of right elbow, initial encounter (principal); W01.198A Fall on same level from slipping, tripping and stumbling with subsequent striking against other object, initial encounter; F03.91 Unspecified dementia, unspecified severity, with behavioral disturbance; I25.10 Atherosclerotic heart disease of native coronary artery without angina pectoris; I10 Essential (primary) hypertension; E86.9 Volume depletion, unspecified; Z87.891 Personal history of nicotine dependence; Z85.46 Personal history of malignant neoplasm of prostate; Z95.1 Presence of aortocoronary bypass graft

== ENCOUNTER 2017-04-25 04:12 | Observation (INO) | payer OTHER, MEDICARE ==
--- NOTE | 2017-04-25 04:18 | EDPHY ---
H & P Time Seen by Provider: 04/25/17 04:12 HPI/ROS: HPI The patient presents with a mechanical fall which occurred just prior to arrival. Apparently, the patient landed on his right shoulder and is complaining of right shoulder pain. He has a history of chronic right shoulder pain from an unknown injury. The patient is coming in from the [facility] brought in by ambulance. He denies any complaints currently. He was seen in the emergency department about 2 months ago for similar fall with an extensive workup which was unremarkable. Unfortunately, his is admitted to the hospital now and daughter is on her way to [place] in an airplane. Last night he was transferred from the assisted living portion of his facility to the [facility] memory care unit. REVIEW OF SYSTEMS Constitutional: No fever, no chills. Eyes: No discharge. ENT: No sore throat. Cardiovascular: No chest pain, no palpitations. Respiratory: No cough, no shortness of breath. Gastrointestinal: No abdominal pain, no vomiting. Genitourinary: No hematuria. Musculoskeletal: No back pain. Skin: No rashes. Neurological: No headache. PMHx: Dementia, hypothyroidism Soc Hx: Resides at the [facility], walks independently PHYSICAL General Appearance: Alert, no distress Eyes: Pupils equal and round no pallor or injection ENT, Mouth: Mucous membranes moist Respiratory: There are no retractions, lungs are clear to auscultation Cardiovascular: Regular rate and rhythm Gastrointestinal: Abdomen is soft and non-tender, no masses, bowel sounds normal Neurological: A&O, moves all extremities Skin: Warm and dry, no rashes Musculoskeletal: Right shoulder is slightly tender to palpation with limited range of motion secondary to pain Extremities: symmetrical, full range of motion Psychiatric: Patient is oriented X 2, there is no agitation Source: Patient, EMS, half-way records Exam Limitations: Physical impairment Constitutional: Initial Vital Signs Temperature (C) 36.6 C 04/25/17 04:25 Heart Rate 72 04/25/17 04:25 Respiratory Rate 18 04/25/17 04:25 Blood Pressure 126/70 H 04/25/17 04:25 O2 Sat (%) 95 04/25/17 04:25 O2 Delivery Mode Room Air Allergies/Adverse Reactions: No Known Allergies Allergy (Unverified 04/25/17 04:20) Home Medications: Medication Instructions Recorded Tamsulosin HCl 0.4 mg PO DAILY@19 05/05/11 Atorvastatin Calcium [Lipitor 40 40 mg PO HS 06/13/11 mg (*)] Herbals/Supplements -Info Only 1 ea PO DAILY 03/01/15 Levothyroxine [Synthroid 75 mcg 75 mcg PO DAILY06 03/01/15 (*)] Ascorbic Acid [Vitamin C 500 mg 1,000 mg PO DAILY 02/06/17 (*)] Cetirizine [ZyrTEC 10 mg (*)] 10 mg PO HS PRN 02/06/17 Magnesium Oxide [Magnesium Oxide 400 mg PO HS 02/06/17 400 mg (*)] Rivastigmine [Exelon] 1 each TD DAILY 02/06/17 Venlafaxine Xr [Effexor Xr 75MG 37.5 - 75 mg PO DAILY 02/06/17 (*)] Acetaminophen [Tylenol ES 500 mg 1,000 mg PO TID tab 02/11/17 (*)] Melatonin [Melatonin 3 MG (*)] 3 mg PO HS tab 02/11/17 Pantoprazole Sodium [Protonix 40mg 40 mg PO BID tab 02/11/17 (*)] Seroquel 03/02/17 Medical Decision Making - Diagnostics Imaging Results: Right shoulder x-ray three views shows no fracture, no dislocation, interpreted by me, radiology interpretation is pending. Differential Diagnosis: This is an 86-year-old male from an assisted living facility with a history of dementia who is brought in by ambulance after a fall from standing, seemingly mechanical, now complaining of right shoulder pain. I do not see any external signs of trauma. He does not have any complaints. However, on exam when I range his right shoulder it is painful to him. Paramedics report that he has a history of chronic right shoulder pain. Differential diagnosis includes rotator cuff injury, shoulder dislocation, shoulder fracture. In the emergency department, x-rays were obtained which did not demonstrate any acute findings. The patient was observed and continued to not have any complaints. He was able to ambulate without difficulty. He did have 1 episode of watery diarrhea while he was here. Because of this, basic labs were checked. [facility]. The [facility] has recently relocated locked memory care unit since his has been in the hospital. We plan for the patient's daughter to meet him in the emergency department to [facility]. Unfortunately, lab results returned and demonstrated that the patient has acute on chronic renal failure. This could be a result dehydration from his diarrhea. I do think he is suitable for discharge. Discussed the case with the hospitalist Dr. Roy, I have ordered him IV fluids. - Data Points Laboratory Results: Laboratory Results 04/25/17 06:10 04/25/17 05:55 04/25/17 04/25/17 04/25/17 06:10 05:55 05:55 WBC 8.85 10^3/uL 10^3/uL (3.80-9.50) RBC 4.08 10^6/uL L 10^6/uL (4.40-6.38) Hgb 10.7 g/dL L g/dL (13.7-17.5) Hct 33.4 % L % (40.0-51.0) MCV 81.9 fL fL (81.5-99.8) MCH 26.2 pg L pg (27.9-34.1) MCHC 32.0 g/dL L g/dL (32.4-36.7) RDW 14.5 % % (11.5-15.2) Plt Count 275 10^3/uL 10^3/uL (150-400) MPV 9.5 fL fL (8.7-11.7) Neut % (Auto) 76.7 % H % (39.3-74.2) Lymph % (Auto) 10.3 % L % (15.0-45.0) [place] % (Auto) 9.4 % % (4.5-13.0) Eos % (Auto) 2.8 % % (0.6-7.6) Baso % (Auto) 0.5 % % (0.3-1.7) Nucleat RBC Rel Count 0.0 % % (0.0-0.2) Absolute Neuts (auto) 6.79 10^3/uL H 10^3/uL (1.70-6.50) Absolute Lymphs (auto) 0.91 10^3/uL L 10^3/uL (1.00-3.00) Absolute Monos (auto) 0.83 10^3/uL H 10^3/uL (0.30-0.80) Absolute Eos (auto) 0.25 10^3/uL 10^3/uL (0.03-0.40) Absolute Basos (auto) 0.04 10^3/uL 10^3/uL (0.02-0.10) Absolute Nucleated RBC 0.00 10^3/uL 10^3/uL (0-0.01) Immature Gran % 0.3 % % (0.0-1.1) Immature Gran # 0.03 10^3/uL 10^3/uL (0.00-0.10) Sodium 139 mEq/L mEq/L (134-144) Potassium 5.1 mEq/L mEq/L (3.5-5.2) Chloride 109 mEq/L mEq/L (97-110) Carbon Dioxide 16 mEq/l L mEq/l (22-31) Anion Gap 14 mEq/L mEq/L (8-16) BUN 41 mg/dL H mg/dL (7-23) Creatinine 2.0 mg/dL H mg/dL (0.7-1.3) Estimated GFR 32 Glucose 107 mg/dL H mg/dL (70-100) Calcium 9.2 mg/dL mg/dL (8.5-10.4) Total Bilirubin 0.4 mg/dL mg/dL (0.1-1.4) AST 31 IU/L IU/L (17-59) ALT 34 IU/L IU/L (21-72) Alkaline Phosphatase 117 IU/L IU/L (38-126) Creatine Kinase 125 IU/L IU/L (0-224) Total Protein 7.5 g/dL g/dL (6.3-8.2) Albumin 4.2 g/dL g/dL (3.5-5.0) Medications Given: Discontinued Medications Sodium Chloride (Ns) 1,000 mls @ 0 mls/hr IV EDNOW ONE; Wide Open PRN Reason: Protocol Stop: 04/25/17 06:25 Last Admin: 04/25/17 06:39 Dose: 1,000 mls Departure - Departure Disposition: Home, Routine, Self-Care Clinical Impression: Dementia, Right shoulder pain, Diarrhea Condition: Good
[2017-04-25 06:24] LABS: PLATELET COUNT 275 10^3/uL (150-400)
[2017-04-25] MEDS ORDERED: NS 1,000 ML IV ONE ×2 (06:24→08:32)
[2017-04-25] MEDS ORDERED: ACETAMINOPHEN 325 MG TAB PO PRN (08:32)
[2017-04-25] MEDS ORDERED: ONDANSETRON 4 MG/2 ML VIAL IVP PRN (08:32)
[2017-04-25] MEDS ORDERED: ONDANSETRON DISINTEGRATING 4 MG TAB PO PRN (08:32)
[2017-04-25] MEDS: NS 1,000 ML IV SCH ×2 (08:56→18:31)
[2017-04-25] MEDS ORDERED: VENLAFAXINE XR 75 MG CAP PO SCH (09:00)
[2017-04-25] MEDS ORDERED: NON-FORMULARY NEW DRUG (Omeprazole [Prilosec 20 Mg] 20 MG) PO SCH (09:00)
[2017-04-25] MEDS ORDERED: Herbals/Supplements -Info Only PO SCH (09:00)
--- NOTE | 2017-04-25 09:32 | GHP ---
[f rep st] HISTORY AND PHYSICAL DATE OF ADMISSION: 04/25/2017 CHIEF COMPLAINT: Shoulder pain. HISTORY OF PRESENT ILLNESS: An 86-year-old male with a history of dementia recently transferred the day before presentation to a memory care unit. The patient was brought into the emergency department status post fall with the need for evaluation of a shoulder injury. Upon initial evaluation, found to have an acute kidney injury; therefore, admitted to the hospital for treatment. Upon my evaluatio n, patient is endorsing pain to the right shoulder with passive and active range of motion. Denies a ny chest pain, shortness of breath, headache, vision changes. Reports no appetite. Denies abdominal pain. Denies diarrhea or constipation. Denies lower extremity edema or other musculoskeletal pain. PAST MEDICAL HISTORY: 1. Coronary artery disease, status post coronary artery bypass graft. 2. Dementia requiring Memory Care. 3. Chronic kidney disease. 4. Duodenal ulcer with history of H pylori. 5. Hyperlipidemia. 6. Hypertension. 7. Hypothyroidism. 8. History of prostate cancer. SOCIAL HISTORY: Patient just transferred to a memory care unit yesterday. Denies alcohol. He is a former smoker. No illicit drugs. FAMILY HISTORY: Positive for heart disease. REVIEW OF SYSTEMS: A 10-point review of systems is negative with the exception of that reported in t he HPI. PHYSICAL EXAMINATION: VITAL SIGNS: Blood pressure 138/57, heart rate 70, respiratory rate 18, 92% o n room air, 36.5. GENERAL: This is a well-appearing elderly male, sitting up in bed. HEENT: Notab le for moist mucous membranes. Eye exam is negative for any icterus. CARDIAC: Patient is regular r ate and rhythm. A systolic murmur is heard best at the left sternal border. PULMONARY: Good respir atory effort. Clear to auscultation bilaterally. GASTROINTESTINAL: Positive bowel sounds. Abdomen soft and nontender. MUSCULOSKELETAL: Negative for any lower extremity edema. The patient has nota ble pain in his right shoulder with both active and passive range of motion. No bruising is noted. He is particularly tender over the deltoid and biceps tendon. SKIN: Negative for any rashes. NEURO LOGIC: Patient is alert but not oriented. PSYCHIATRIC: He is agitated on interview and examination . DATA: White count 8.8, hematocrit 33.4, platelets of 275. Creatinine 2.0, most recent 1.3, BUN 41, glucose of 107, sodium 139. Shoulder x-ray, which I personally reviewed and interpreted, shows no ac eek bony abnormalities. ASSESSMENT AND PLAN: This is an 86-year-old male with significant dementia recently transferred to [facility], brought to the ED after a fall. 1. Acute right shoulder pain. Have to assume it is muscular in nature with negative shoulder imagin g. Will treat with Tylenol and p.r.n. nonnarcotic pain medications. Avoiding NSAIDs obviously in th e setting of acute kidney injury. Will additionally have Physical Therapy, Occupational Therapy eval uate. My hope is to get the patient safely back to [facility] today before sunset with recommendati ons on safe ambulation and ongoing physical therapy for his shoulder. 2. Acute kidney injury presumed secondary to hypovolemia. Last echocardiogram showed an ejection fr action of greater than 70%. Patient should tolerate fluid resuscitation. We will treat with a sherly l saline 1 L bolus now and continues fluids. Recheck his renal function this afternoon. If improved , intend to transfer the patient back to [facility] with recommendations for adequate oral hydration . 3. Coronary artery disease. Patient is denying chest pain at this time. It sounds as if it was a [facility] fall. Will not initiate any cardiac risk stratification during this stay. 4. Hypertension. Patient's blood pressures are well controlled. Will continue his home medications . 5. Hypothyroidism. Will continue the patient's Synthroid therapy. 6. Prophylaxis: Will place sequential compression devices. 7. Diet regular. 8. Disposition: I hope in less than 2 midnights if the patient responds well to fluid resuscitation and is cleared by PT, OT. I have discussed the case with the emergency room physician. Patient kerline whiteside be triaged to the medical-surgical floor for care. /[id number]/MODL
[2017-04-25] MEDS: CYANO/VITAMIN B12 1000 MCG TAB PO SCH (09:54)
[2017-04-25] MEDS: ASPIRIN EC 81 MG TAB PO SCH (09:54)
[2017-04-25] MEDS: VENLAFAXINE XR 37.5 MG CAP PO SCH (09:54)
[2017-04-25] MEDS: ASCORBIC ACID 500 MG TAB PO SCH (09:54)
[2017-04-25] MEDS: OMEGA-3 FATTY ACIDS 1,000 MG CAP PO SCH (09:54)
--- NOTE | 2017-04-25 17:01 | ASMTCMCOM ---
CM Note CM Note Notes: Pt has newly transferred to [facility] memory care unit yesterday. Earlier CM received call from Analilia at [facility] stating they were not comfortable with pt coming today d/t falls and think pt needs another night. CM called back later stating that the MD had in fact put in a dc order, Analilia verbalized understanding at gave fax number to send orders. FRANCISCO then went and discussed with dtr Floresita and she was going to call private caregiver and set up overnight care. Analilia then called CM back stating she received call from dtr who was uncomfortable with disharge, FRANCISCO explained to Analilia that pt's dtr did not express that and I would go back to check with daughter. In talking with dtr, she adamantly denied that she said that to Analilia at [facility] and was quite upset. CM spoke with MD, who will keep pt overnight and dc in AM, dtr to spend the night with pt tonight. Referral also sent out to [facility] but no PT/OT notes yet. DC Plan: [facility] + Home care with [facility] (PT/OT) Date Signed: 04/25/2017 05:01 PM Electronically Signed By:Danay Cramer RN
[2017-04-25] MEDS ORDERED: ATORVASTATIN CALCIUM 40 MG TAB PO SCH (21:00)
[2017-04-25] MEDS ORDERED: TAMSULOSIN HCL 0.4 MG CAP PO SCH (21:00)
[2017-04-25 23:14] VITALS: RESP 18
[2017-04-26] MEDS ORDERED: CALCIUM CARBONATE 500 MG CHEWABLE TAB PO PRN (01:03)
[2017-04-26] MEDS: NS 1,000 ML IV SCH (04:42)
[2017-04-26 05:18] LABS: PLATELET COUNT 259 10^3/uL (150-400)
[2017-04-26] MEDS ORDERED: LEVOTHYROXINE 75 MCG TAB PO SCH (06:00)
[2017-04-26 08:03] VITALS: BP 123/61; PULSE 68; TEMP 98.2; O2SAT 90
--- NOTE | 2017-04-26 08:21 | PDIAF ---
- Diagnosis Diagnosis: acute kidney injury from dehydration Code Status: Full Code - Medication Management Discharge Medications: Medications to Continue on Transfer Tamsulosin HCl 0.4 mg PO HS 05/05/11 [Last Taken 04/24/17] Atorvastatin Calcium [Lipitor 40 mg (*)] 40 mg PO HS 06/13/11 [Last Taken ] Herbals/Supplements -Info Only 1 ea PO DAILY 03/01/15 [Last Taken Unknown] Levothyroxine [Synthroid 75 mcg (*)] 75 mcg PO DAILY06 03/01/15 [Last Taken 06/10] Ascorbic Acid [Vitamin C 500 mg (*)] 1,000 mg PO DAILY 02/06/17 [Last Taken 06/10] Venlafaxine Xr [Effexor Xr 75MG (*)] 37.5 mg PO DAILY 02/06/17 [Last Taken 04/24] Aspirin EC [Aspirin EC 81 mg (*)] 81 mg PO DAILY 04/25/17 [Last Taken 04/24/17] Cyanocobalamin [Vitamin B12 (*)] 1,000 mcg PO DAILY 04/25/17 [Last Taken ] [place]-3 Fatty Acids [Fish Oil 1000 mg (*)] 1,000 mg PO DAILY 04/25/17 [Last Taken 04/24/17] Omeprazole [Prilosec 20 mg] 20 mg PO DAILY 04/25/17 [Last Taken Unknown] Rivastigmine 13.3mg/24hrs 1 each TD DAILY 04/25/17 [Last Taken 04/24/17] Discharge Medications: Refer to the Discharge Home Medication list for PRN reason. - Orders Services needed: Registered Nurse, Physical Therapy, Occupational Therapy Isolation Type: None Diet Recommendation: no restrictions on diet Diet Texture: Regular Texture Diet - Labs/Radiology BMP Date: 05/02/17 (call to PCP) - Follow Up Care Current Providers and Referrals: Jarrod Iniguez MD [Primary Care Provider] - As per Instructions
[2017-04-26] MEDS ORDERED: PANTOPRAZOLE SODIUM 40 MG TAB PO SCH (09:00)
[2017-04-26] MEDS: VENLAFAXINE XR 37.5 MG CAP PO SCH (09:43)
[2017-04-26] MEDS: OMEGA-3 FATTY ACIDS 1,000 MG CAP PO SCH (09:43)
[2017-04-26] MEDS: ASCORBIC ACID 500 MG TAB PO SCH (09:43)
[2017-04-26] MEDS: CYANO/VITAMIN B12 1000 MCG TAB PO SCH (09:43)
[2017-04-26] MEDS: ASPIRIN EC 81 MG TAB PO SCH (09:43)
--- NOTE | 2017-04-26 09:47 | GDS ---
[f rep st] DISCHARGE SUMMARY DISCHARGE DIAGNOSES: 1. Shoulder pain. 2. Coronary artery disease status post coronary artery bypass graft. 3. Dementia requiring memory care. 4. Acute on chronic kidney disease. 5. Duodenal ulcer with history of Helicobacter pylori, hyperlipidemia, hypertension, hypothyroidism, history of prostate cancer. 6. Pyuria HISTORY OF PRESENT ILLNESS: An 86-year-old male with dementia, recently transferred the day before admission to a memory care unit. He was brought back to the ER after a fall, needing evaluation for shoulder pain. Upon evaluation, was found to have REN and, therefore, was admitted to the hospital for treatment. He denied any chest pain, shortness of breath, headache or vision changes. No dysuria. No lower extremity edema. HOSPITAL COURSE BY PROBLEM: 1. Acute right shoulder pain, appears to be musculoskeletal on exam and negative x-ray. Will treat with p.r.n. Tylenol and ice. No NSAIDs in the setting of REN. 2. REN: Creatinine was elevated to 2, baseline is 1.3. This is now resolved after IV fluids. 3. Coronary artery disease: No chest pain. No further cardiac evaluation warranted. 4. Hypertension: Continue home medications. 5. Hypothyroidism: Synthroid. 6. Pyuria: no sxs. Culture pending. Will treat if positive. I will FU DISPOSITION: Patient is stable for discharge back to Memory Unit today. SUBJECTIVE: Today, mild shoulder pain if pushing up from sitting. PHYSICAL EXAMINATION: VITAL SIGNS: Temperature 36.8, blood pressure 123/61, heart rate 60, respirations 18, 90% on room air. GENERAL: Well-appearing male sitting up in chair. No acute distress. HEENT: PERRLA. EOMI. Oropharynx clear. CV: Regular rate and rhythm. No murmurs, gallops, or rubs. LUNGS: Clear anteriorly. ABDOMEN: Soft, nontender, nondistended. Positive bowel sounds. : No Tripathi. MUSCULOSKELETAL: Moving all 4 extremities. Tenderness over the joint, but no erythema. Has good range of motion. NEURO: No focal deficits. PSYCH: Alert, answering appropriately. MEDICATIONS: Resume home medications. Avoid NSAIDs. FOLLOWUP: [facility]. /[id number]/MODL MTDD
--- NOTE | 2017-04-26 13:21 | ASDISCHSUM ---
Discharge Information Plan Status:Home with Home Health Medically Cleared to Leave: Discharge Date:04/26/2017 11:55 AM CM D/C Disposition:Home Health Service ADT D/C Disposition:[facility]pc Facility Projected Discharge Date:04/26/2017 04:00 PM Transportation at D/C:ALS/BLS Discharge Delay Reason: Follow-Up Date:04/26/2017 04:00 PM Discharge Slot: Final Diagnosis: Placement Information Referral Type:Assisted Living Residence Referral ID:[id number] Provider Name:[facility] Address 1:[address] [place] [address]. Phone Number: Address 2: Fax Number: City:[place] Selection Factors: State:[place] Referral Type:*Home Health Care Services Referral ID:[id number] Provider Name:[facility] Address 1:[address] Address 2: City:[place] Selection Factors: State:[place] Patient Contact Information Contact Name:COSTA Relationship: Address:[address] City:[place] Alternate Phone: State/Zip Code:[place] [address] Email: Financial Information Financial Class: Primary Plan Desc:MEDICARE OUTPATIENT Primary Plan Number:[id number] Secondary Plan Desc:RITA/MITZI SUPPLEMENT Secondary Plan Number:[id number] Assessment Information [facility] Progress Note CM Note CM Note Notes: Pt has newly transferred to [facility] memory care unit yesterday. Earlier FRANCISCO received call from Analilia at [facility] stating they were not comfortable with pt coming today d/t falls and think pt needs another night. FRANCISCO called back later stating that the MD had in fact put in a dc order, Analilia verbalized understanding at gave fax number to send orders. FRANCISCO then went and discussed with dtjose Canas and she was going to call private caregiver and set up overnight care. Analilia then called FRANCISCO back stating she received call from dtr who was uncomfortable with disharge, FRANCISCO explained to Analilia that pt's dtr did not express that and I would go back to check with daughter. In talking with dtr, she adamantly denied that she said that to Analilia at [facility] and was quite upset. CM spoke with , who will keep pt overnight and dc in AM, dtr to spend the night with pt khadra. Referral also sent out to [facility] but no PT/OT notes yet. DC Plan: [facility] + Home care with [facility] (PT/OT) Date Signed: 04/25/2017 05:01 PM Electronically Signed By:Danay Cramer RN Case Management Discharge Plan Note Case Management Discharge Discharge Order Complete? Answers: Yes Patient to Obtain Answers: via Family Medications Transportation Arranged Answers: [facility] Transport will Pick (Date 04/26/2017 11:30 AM & Time) Case Management Transport Answers: Yes Form Complete Faxed Final Orders Answers: Yes Family Notified Answers: Yes Discharge Comments Notes: Patient discharged back to [facility]. He has private caregivers through [facility], and we have arranged skilled care through [facility]. I spoke with Jennifer at [facility] who accepts patient today at 1200. [facility] transport through [facility], [facility] provided. I spoke with patient's step daughter Floresita who agreed to this plan and will meet patient there this afternoon. Date Signed: 04/26/2017 11:55 AM Electronically Signed By:Sushma Ramirez RN Intervention Information Intervention Type:*Incorrect Registration Date of Service:04/26/2017 07:30 AM Patient Type:Observation Staff Member:ANIKA Mojica Susan Hours: Discipline: Severity: Comment:
== END 2017-04-26 11:55 ==
LOC: EDUNIT# → F3E 08:28 → INTOOBSV 08:32 → OBSVTOIN 08:32 → F3E 18:30
PROVIDERS: ADMIT Family Medicine; ATTEND Internal Medicine
DX: M25.511 Pain in right shoulder (principal); I25.10 Atherosclerotic heart disease of native coronary artery without angina pectoris; Z95.5 Presence of coronary angioplasty implant and graft; F03.90 Unspecified dementia, unspecified severity, without behavioral disturbance, psychotic disturbance, mood disturbance, and anxiety; N17.0 Acute kidney failure with tubular necrosis; N18.9 Chronic kidney disease, unspecified; K26.9 Duodenal ulcer, unspecified as acute or chronic, without hemorrhage or perforation; E78.5 Hyperlipidemia, unspecified; I10 Essential (primary) hypertension; E03.9 Hypothyroidism, unspecified; Z85.46 Personal history of malignant neoplasm of prostate; N39.0 Urinary tract infection, site not specified; Z91.81 History of falling; Z87.891 Personal history of nicotine dependence

== ENCOUNTER 2017-06-26 20:14 | Inpatient (IN) | payer OTHER, MEDICARE ==
--- NOTE | 2017-06-26 20:28 | EDPHY ---
H & P Time Seen by Provider: 06/26/17 20:15 HPI/ROS: CHIEF COMPLAINT: Fall with possible injury HISTORY OF PRESENT ILLNESS: History is from EMS and limited by the patient because of his dementia. Apparently he fell and they were called to evaluate. He had some arm and back pain as well as the EMS noted his abdomen was distended and firm. On arrival the patient says he has a little bit of abdominal pain but denies any other complaints. Further history and review of systems is limited by the patient's dementia PAST MEDICAL HISTORY: Includes coronary disease, dementia, hypertension, hypothyroid. Coronary artery bypass grafting. Prostate cancer. Discharge summary dated 04/26/2017 personally reviewed. Social history: Lives at assisted living, arrives by EMS General Appearance: Alert and conversant, cooperative. Eyes: No scleral icterus. The pupils equal and reactive. ENT, Mouth: Normal mucous membranes. Respiratory: Normal respiratory effort, breath sounds equal, lungs are clear to auscultation. Cardiovascular: Regular rate and rhythm. Sternotomy healed scar. Gastrointestinal: Abdomen is distended and firm but pushing on that does not seem to elicit any pain from the patient. Neurological: Patient is alert but is confused and does not answer questions in any kind of logical manner. He will follow commands. He does move all 4 extremities. Skin: Warm and dry, no rashes or lacerations. Musculoskeletal: No tenderness on any extremity; and mid cervical spine and C- T junction tenderness in the midline posteriorly. Psychiatric: Not agitated. Emergency Department course/MDM: Creatinine 1.8. Fall with trauma and concern for injury but difficult to assess with his dementia. He apparently is full cor, CPR if necessary. Plan for CT head cervical spine chest abdomen pelvis without IV contrast, discharge if negative; discussed with step daughter present in the room at 8:38 p.m. 2105: Labs reviewed include creatinine 1.7 with potassium 6.2; EKG ordered, will treat his high potassium, admission for acute renal failure with hyperkalemia. 2130: 12-lead EKG interpreted by me; official reading is in trace master. My interpretation is sinus rhythm rate 68 with normal intervals. Treatment for hyperkalemia ordered with normal EKG, potassium 6.2, with 1 amp sodium bicarb IV, 1 L normal saline IV, 10 mL calcium gluconate IV, 25 g glucose , 10 units insulin. Plan and diagnostics discussed with family also at 2245. Does not appear to have sustained any severe injury, doubt fracture, doubt internal bleeding. Admission for electrolyte abnormality. Smoking Status: Former smoker Constitutional: Initial Vital Signs Temperature (C) 37 C 06/26/17 20:29 Heart Rate 75 06/26/17 20:29 Respiratory Rate 20 06/26/17 20:29 Blood Pressure 144/76 H 06/26/17 20:29 O2 Sat (%) 95 06/26/17 20:29 O2 Delivery Mode Room Air Allergies/Adverse Reactions: No Known Allergies Allergy (Unverified 06/26/17 20:29) Home Medications: Medication Instructions Recorded Tamsulosin HCl 0.4 mg PO DAILY@18 05/05/11 Atorvastatin Calcium [Lipitor 40 40 mg PO HS 06/13/11 mg (*)] Herbals/Supplements -Info Only 1 ea PO DAILY 03/01/15 Levothyroxine [Synthroid 75 mcg 75 mcg PO DAILY06 03/01/15 (*)] Ascorbic Acid [Vitamin C 500 mg 500 mg PO DAILY 02/06/17 (*)] Cyanocobalamin [Vitamin B12 (*)] 1,000 mcg PO DAILY 04/25/17 [place]-3 Fatty Acids [Fish Oil 1000 1,000 mg PO DAILY 04/25/17 mg (*)] Omeprazole [Prilosec 20 mg] 20 mg PO DAILY 04/25/17 Rivastigmine 13.3mg/24hrs 1 each TD DAILY 04/25/17 Acetaminophen [Tylenol 325mg (*)] 650 mg PO Q6HRS PRN 06/26/17 Cetirizine [ZyrTEC 10 mg (*)] 10 mg PO DAILY 06/26/17 Docusate Sodium [Colace 100 MG (*)] 100 mg PO BID 06/26/17 Ferrous Sulfate [Ferrous Sulf 325 325 mg PO BID 06/26/17 MG (*)] Magnesium Oxide [Magnesium Oxide 400 mg PO HS 06/26/17 400 mg (*)] Melatonin [Melatonin 3 MG (*)] 3 mg PO HS 06/26/17 Venlafaxine Xr [Effexor Xr 37.5MG 37.5 mg PO DAILY@18 06/26/17 (*)] traZODone [traZODONE 100MG (*)] 100 mg PO HS 06/26/17 Medical Decision Making - Diagnostics Imaging Results: Imaging Impressions Cervical Spine CT 06/26/17 20:30 Impression: Elderly brain with prominent atrophy and probable white matter small vessel disease. Nothing acute is identified. CT Cervical Spine Without Contrast History: Trauma. Technique: Multislice helical CT through the cervical spine without contrast from the skull base to T1. Soft tissue and bone evaluation is performed. Sagittal and coronal reconstructions are obtained and reviewed. Dose reduction techniques were utilized. There was difficulty positioning the patient secondary to his mental status. Findings: There is reversal of the normal cervical curvature. No fracture or dislocation is identified. The relationship between skull base and C1 is normal. The C1-C2 articulation is normal. The odontoid process is normal. The cervical thoracic junction is normal. Soft tissue window evaluation does not show evidence of epidural or prevertebral hematoma. Multilevel degenerative changes are noted. Impression: 1. Negative for fracture. 2. Reversal of the cervical curvature may reflect muscle spasm. 3. Multilevel degenerative changes are noted. Results called and discussed with Tate Last M.D. on 06/26/2017 at 21:49. Head CT 06/26/17 20:30 Impression: Elderly brain with prominent atrophy and probable white matter small vessel disease. Nothing acute is identified. CT Cervical Spine Without Contrast History: Trauma. Technique: Multislice helical CT through the cervical spine without contrast from the skull base to T1. Soft tissue and bone evaluation is performed. Sagittal and coronal reconstructions are obtained and reviewed. Dose reduction techniques were utilized. There was difficulty positioning the patient secondary to his mental status. Findings: There is reversal of the normal cervical curvature. No fracture or dislocation is identified. The relationship between skull base and C1 is normal. The C1-C2 articulation is normal. The odontoid process is normal. The cervical thoracic junction is normal. Soft tissue window evaluation does not show evidence of epidural or prevertebral hematoma. Multilevel degenerative changes are noted. Impression: 1. Negative for fracture. 2. Reversal of the cervical curvature may reflect muscle spasm. 3. Multilevel degenerative changes are noted. Results called and discussed with Tate Last M.D. on 06/26/2017 at 21:49. Abdomen/Pelvis CT 06/26/17 20:31 Impression: 1. The chest is negative for acute posttraumatic sequela. 2. See above report for additional findings. CT Scan of the Abdomen and Pelvis With Contrast Indication: Pain following trauma; patient is a poor historian. Technique: Multidetector CT images of the abdomen and pelvis were obtained without intravenous contrast. Axial images are obtained at 5 mm intervals and reformatted at 1.5 mm thickness. The examination is reviewed on the workstation at multiple window/level settings. Sagittal and coronal reformations are performed. Dose reduction techniques were utilized for this examination. Abdomen: Liver: Negative for acute abnormality, a few calcified granulomata are seen. Biliary system: Normal gallbladder. No intra- or extrahepatic dilatation. Spleen: Multiple calcified granulomata are noted. Pancreas: Normal. Adrenals: Normal. Kidneys: No obstruction or solid masses. A cyst of the right kidney is unchanged compared to a previous noncontrast CT of the abdomen February 06, 2017. There is a nonobstructing calculus in the lower pole of the right kidney. Abdominal Aorta: Dense aortic calcification is seen without significant aneurysmal dilatation. No bowel obstruction, ascites, or retroperitoneal lymphadenopathy. A few scattered diverticula are seen without evidence of diverticulitis. CT Pelvis Findings: Bladder is unremarkable. Multiple pelvic calcifications are seen. No acute osseous abnormality is identified. Impression: 1. No acute abdominal or pelvic abnormality. 2. See above report for additional findings. Results called and discussed with Tate Last M.D. on 06/26/2017 at 21:39. Chest CT 06/26/17 20:31 Impression: 1. The chest is negative for acute posttraumatic sequela. 2. See above report for additional findings. CT Scan of the Abdomen and Pelvis With Contrast Indication: Pain following trauma; patient is a poor historian. Technique: Multidetector CT images of the abdomen and pelvis were obtained without intravenous contrast. Axial images are obtained at 5 mm intervals and reformatted at 1.5 mm thickness. The examination is reviewed on the workstation at multiple window/level settings. Sagittal and coronal reformations are performed. Dose reduction techniques were utilized for this examination. Abdomen: Liver: Negative for acute abnormality, a few calcified granulomata are seen. Biliary system: Normal gallbladder. No intra- or extrahepatic dilatation. Spleen: Multiple calcified granulomata are noted. Pancreas: Normal. Adrenals: Normal. Kidneys: No obstruction or solid masses. A cyst of the right kidney is unchanged compared to a previous noncontrast CT of the abdomen February 06, 2017. There is a nonobstructing calculus in the lower pole of the right kidney. Abdominal Aorta: Dense aortic calcification is seen without significant aneurysmal dilatation. No bowel obstruction, ascites, or retroperitoneal lymphadenopathy. A few scattered diverticula are seen without evidence of diverticulitis. CT Pelvis Findings: Bladder is unremarkable. Multiple pelvic calcifications are seen. No acute osseous abnormality is identified. Impression: 1. No acute abdominal or pelvic abnormality. 2. See above report for additional findings. Results called and discussed with Tate Last M.D. on 06/26/2017 at 21:39. Imaging: Discussed imaging studies w/ will call order clerk Radiologist Differential Diagnosis: Differential diagnosis considered for blunt trauma including but not limited to intracranial injury, bony fracture, spinal injury, liver or spleen injury, pneumothorax and hemothorax. Consult/Admit Bed Type: [place] [id number] Critical Care Time: Critical care time spent by me, Dr. 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 The organ system at risk was metabolic with hyperkalemia and I ordered multiple medications, normal saline to stabilize the patient and prevent worsening of the patient's condition. - Data Points Laboratory Results: Laboratory Results 06/26/17 20:25 06/26/17 20:25 06/26/17 06/26/17 06/26/17 20:27 20:25 20:25 WBC RBC Hgb POC Hgb 13.6 gm/dL L gm/dL (13.7-17.5) Hct POC Hct 40 % % (40-51) MCV MCH MCHC RDW Plt Count MPV Neut % (Auto) Lymph % (Auto) [place] % (Auto) Eos % (Auto) Baso % (Auto) Nucleat RBC Rel Count Absolute Neuts (auto) Absolute Lymphs (auto) Absolute Monos (auto) Absolute Eos (auto) Absolute Basos (auto) Absolute Nucleated RBC Immature Gran % Immature Gran # POC Sodium 141 mEq/L mEq/L (135-145) Sodium 141 mEq/L mEq/L (135-145) POC Potassium 5.6 mEq/L H mEq/L (3.3-5.0) Potassium 6.2 mEq/L H mEq/L (3.5-5.2) POC Chloride 109 mEq/L mEq/L (97-110) Chloride 108 mEq/L mEq/L (97-110) Carbon Dioxide 23 mEq/l mEq/l (22-31) Anion Gap 10 mEq/L mEq/L (8-16) POC BUN 37 mg/dL H mg/dL (7-23) BUN 35 mg/dL H mg/dL (7-23) Creatinine 1.7 mg/dL H mg/dL (0.7-1.3) POC Creatinine 1.8 mg/dL H mg/dL (0.7-1.3) Estimated GFR 38 Glucose 89 mg/dL mg/dL (70-100) POC Glucose 94 mg/dL mg/dL (70-100) Calcium 9.3 mg/dL mg/dL (8.5-10.4) Magnesium 2.0 mg/dL mg/dL (1.6-2.3) Total Bilirubin 0.2 mg/dL mg/dL (0.1-1.4) Conjugated Bilirubin 0.1 mg/dL mg/dL (0.0-0.5) Unconjugated Bilirubin 0.1 mg/dL mg/dL (0.0-1.1) AST 26 IU/L IU/L (17-59) ALT 31 IU/L IU/L (21-72) Alkaline Phosphatase 110 IU/L IU/L (38-126) Creatine Kinase 157 IU/L IU/L (0-224) Troponin I < 0.012 ng/mL ng/mL (0.000-0.034) Total Protein 8.3 g/dL H g/dL (6.3-8.2) Albumin 4.5 g/dL g/dL (3.5-5.0) Lipase 261 IU/L IU/L (23-300) 06/26/17 20:25 WBC 7.68 10^3/uL 10^3/uL (3.80-9.50) RBC 4.71 10^6/uL 10^6/uL (4.40-6.38) Hgb 12.0 g/dL L g/dL (13.7-17.5) POC Hgb Hct 38.8 % L % (40.0-51.0) POC Hct MCV 82.4 fL fL (81.5-99.8) MCH 25.5 pg L pg (27.9-34.1) MCHC 30.9 g/dL L g/dL (32.4-36.7) RDW 17.2 % H % (11.5-15.2) Plt Count 292 10^3/uL 10^3/uL (150-400) MPV 9.7 fL fL (8.7-11.7) Neut % (Auto) 71.1 % % (39.3-74.2) Lymph % (Auto) 14.3 % L % (15.0-45.0) [place] % (Auto) 9.6 % % (4.5-13.0) Eos % (Auto) 3.9 % % (0.6-7.6) Baso % (Auto) 0.7 % % (0.3-1.7) Nucleat RBC Rel Count 0.0 % % (0.0-0.2) Absolute Neuts (auto) 5.46 10^3/uL 10^3/uL (1.70-6.50) Absolute Lymphs (auto) 1.10 10^3/uL 10^3/uL (1.00-3.00) Absolute Monos (auto) 0.74 10^3/uL 10^3/uL (0.30-0.80) Absolute Eos (auto) 0.30 10^3/uL 10^3/uL (0.03-0.40) Absolute Basos (auto) 0.05 10^3/uL 10^3/uL (0.02-0.10) Absolute Nucleated RBC 0.00 10^3/uL 10^3/uL (0-0.01) Immature Gran % 0.4 % % (0.0-1.1) Immature Gran # 0.03 10^3/uL 10^3/uL (0.00-0.10) POC Sodium Sodium POC Potassium Potassium POC Chloride Chloride Carbon Dioxide Anion Gap POC BUN BUN Creatinine POC Creatinine Estimated GFR Glucose POC Glucose Calcium Magnesium Total Bilirubin Conjugated Bilirubin Unconjugated Bilirubin AST ALT Alkaline Phosphatase Creatine Kinase Troponin I Total Protein Albumin Lipase Medications Given: Dextrose (Dextrose 50% Syringe) 25 gm IVP PRN PRN PRN Reason: Dizziness Stop: 12/24/17 00:03 Last Admin: 06/27/17 00:10 Dose: 25 gm Melatonin (Melatonin) 3 mg PO HS YU Stop: 12/23/17 23:44 Last Admin: 06/26/17 23:55 Dose: 3 mg Trazodone HCl (Trazodone) 100 mg PO HS YU Stop: 12/23/17 23:44 Last Admin: 06/26/17 23:55 Dose: 100 mg Discontinued Medications Dextrose (Dextrose 50% Syringe) 25 gm IVP EDNOW ONE Stop: 06/26/17 22:11 Last Admin: 06/26/17 22:47 Dose: 25 gm Sodium Chloride (Ns) 1,000 mls @ 0 mls/hr IV EDNOW ONE; Wide Open PRN Reason: Protocol Stop: 06/26/17 21:32 Last Admin: 06/26/17 21:56 Dose: 1,000 mls Calcium Gluconate 1 gm/ (Dextrose) 60 mls @ 120 mls/hr IV EDNOW ONE Stop: 06/26/17 22:59 Last Admin: 06/26/17 22:18 Dose: 60 mls Insulin Human Regular (Humulin R) 10 unit IVP ONCE ONE Stop: 06/26/17 22:11 Last Admin: 06/26/17 22:46 Dose: 10 units Sodium Bicarbonate (Sodium Bicarbonate) 50 meq IVP EDNOW ONE Stop: 06/26/17 21:32 Last Admin: 06/26/17 21:57 Dose: 50 meq Point of Care Test Results: 06/26/17 20:27 POC Sodium 141 POC Potassium 5.6 H POC Chloride 109 POC BUN 37 H POC Creatinine 1.8 H POC Glucose 94 Departure - Departure Disposition: [facility] Inpatient Acute Clinical Impression: Hyperkalemia Acute renal failure Qualifiers: Acute renal failure type: unspecified Qualified Code(s): N17.9 - Acute kidney failure, unspecified Condition: Fair
[2017-06-26 20:37] LABS: PLATELET COUNT 292 10^3/uL (150-400)
--- NOTE | 2017-06-26 21:19 | CPEKG ---
Heart Rate: 68 RR Interval: 882 P-R Interval: 184 QRSD Interval: 104 QT Interval: 380 QTC Interval: 405 P [place]: -7 QRS [place]: 68 T Wave [place]: 51 EKG Severity - NORMAL ECG - EKG Impression: SINUS RHYTHM Electronically Signed By: Tate Last 26-Jun-2017 21:32:13
[2017-06-26] MEDS ORDERED: NS 1,000 ML IV ONE (21:31)
[2017-06-26] MEDS ORDERED: CALCIUM GLUCONATE 50 ML IV ONE (21:31)
[2017-06-26] MEDS ORDERED: SODIUM BICARBONATE 50 MEQ/50 ML SYR IVP ONE (21:31)
[2017-06-26] MEDS ORDERED: D50W 25 GM/50 ML SYR IVP ONE (22:10)
[2017-06-26] MEDS ORDERED: INSULIN REGULAR HUMAN 100 UNIT/ML UNIT IVP ONE (22:10)
[2017-06-26] MEDS ORDERED: ACETAMINOPHEN 325 MG TAB PO PRN (22:27)
[2017-06-26] MEDS ORDERED: ONDANSETRON 4 MG/2 ML VIAL IVP PRN (22:27)
[2017-06-26] MEDS ORDERED: CALCIUM GLUCONATE 1 GM in D5W 50 ML IV ONE (22:30)
[2017-06-26 22:56] LABS: CREATINE KINASE 157 IU/L (0-224)
[2017-06-26] MEDS: traZODone 100 MG TAB PO SCH (23:55)
[2017-06-26] MEDS: MELATONIN 3 MG TAB PO SCH (23:55)
[2017-06-27] MEDS ORDERED: D50W 25 GM/50 ML SYR IVP PRN (00:04)
[2017-06-27] MEDS ORDERED: D50W 25 GM/50 ML SYR IVP ONE (00:06)
--- NOTE | 2017-06-27 02:06 | PDGENHP ---
History and Physical - Chief Complaint Fall, hyperkalemia - History of Present Illness Source-patient with advanced dementia and unable to supplement history. Daughter is at bedside and provides some history. EMR was reviewed and case discussed with accepting hospitalist. HPI - this is a pleasant 86-year-old gentleman with advanced dementia who presents to the emergency department today via EMS from his memory care facility following a fall. Per the daughter patient is normally ambulatory without any assistive devices. Patient was recently admitted in April 2016 for similar episode. It is unknown if fall was witnessed or any preceding symptoms secondary to patient's memory. At time of my interview patient is denying any pain. EMS arrived to evaluate the patient at his care facility and patient had complained of some posterior shoulder pain. Patient without any recent illnesses. Per the daughter patient has been having a good appetite and good oral hydration intake. She also notes that he has gained weight since transfer back to his facility since discharge in April. In the ED-patient's preliminary laboratory studies were significant for elevated potassium and slightly worsened renal function from his baseline creatinine of approximately 1.3. Patient was given calcium gluconate, bicarb, IV fluids, insulin and D50. Patient with similar hospital stay in April. History Information - Allergies/Home Medication List Allergies/Adverse Reactions: No Known Allergies Allergy (Unverified 06/26/17 20:29) Home Medications: Tamsulosin HCl 0.4 mg PO DAILY@18 05/05/11 [Last Taken 04/24/17] Atorvastatin Calcium [Lipitor 40 mg (*)] 40 mg PO HS 06/13/11 [Last Taken ] Herbals/Supplements -Info Only 1 ea PO DAILY 03/01/15 [Last Taken Unknown] Levothyroxine [Synthroid 75 mcg (*)] 75 mcg PO DAILY06 03/01/15 [Last Taken 06/10] Ascorbic Acid [Vitamin C 500 mg (*)] 500 mg PO DAILY 02/06/17 [Last Taken ] Cyanocobalamin [Vitamin B12 (*)] 1,000 mcg PO DAILY 04/25/17 [Last Taken ] [place]-3 Fatty Acids [Fish Oil 1000 mg (*)] 1,000 mg PO DAILY 04/25/17 [Last Taken 04/24/17] Omeprazole [Prilosec 20 mg] 20 mg PO DAILY 04/25/17 [Last Taken Unknown] Rivastigmine 13.3mg/24hrs 1 each TD DAILY 04/25/17 [Last Taken 04/24/17] Acetaminophen [Tylenol 325mg (*)] 650 mg PO Q6HRS PRN 06/26/17 [Last Taken Unknown] Cetirizine [ZyrTEC 10 mg (*)] 10 mg PO DAILY 06/26/17 [Last Taken Unknown] Docusate Sodium [Colace 100 MG (*)] 100 mg PO BID 06/26/17 [Last Taken Unknown] Ferrous Sulfate [Ferrous Sulf 325 MG (*)] 325 mg PO BID 06/26/17 [Last Taken Unknown] Magnesium Oxide [Magnesium Oxide 400 mg (*)] 400 mg PO HS 06/26/17 [Last Taken Unknown] Melatonin [Melatonin 3 MG (*)] 3 mg PO HS 06/26/17 [Last Taken Unknown] Venlafaxine Xr [Effexor Xr 37.5MG (*)] 37.5 mg PO DAILY@18 06/26/17 [Last Taken Unknown] traZODone [traZODONE 100MG (*)] 100 mg PO HS 06/26/17 [Last Taken Unknown] I have personally reviewed and updated: family history, medical history, social history, surgical history - Past Medical History Additional medical history: advanced dementia oriented to person. CKD stage 3. CAD s/p CABG. HTN, HLD, hypothyroidism, prostate CA, duodenal ulcer 2/2 H.pylori. - Surgical History Additional surgical history: CABG - Family History Additional family history: CAD - Social History Smoking Status: Former smoker Alcohol Use: None Drug Use: None Additional social history: Patient is . Patient resides at [facility] Facility. Daughter in town and supportive. Cor status-full Review of Systems Review of Systems: Patient is denying any complaints of symptoms at this time. ROS: 10pt was reviewed & negative except for what was stated in HPI & below Physical Exam Physical Exam: Selected Entries 06/26/17 20:29 Heart Rate 75 Respiratory 20 Rate O2 Sat (%) 95 Temperature (C) 37 C Blood Pressure 144/76 H Mean Arterial 98 Pressure (MAP) O2 Delivery Room Air Mode Temperature Oral Source Temp Pulse Resp BP Pulse Ox 36.8 C 63 18 116/82 H 94 06/27/17 01:15 06/27/17 01:15 06/27/17 01:15 06/27/17 01:15 06/27/17 01:15 O2 (L/minute) 2 Constitutional: no apparent distress, chronically ill appearing, obese, other ( NAD. Patient is lying quietly in bed awake. Daughter at bedside.) Eyes: PERRL (Pupils are equal and round. No scleral icterus or conjunctival injection. Patient declines), anicteric sclera, EOMI (Grossly normal. Patient exam limited secondary to patient's cooperation. Voluntary gaze intact.) Ears, Nose, Mouth, Throat: moist mucous membranes, no oral mucosal ulcers Cardiovascular: regular rate and rhythym, no murmur, rub, or gallop, No edema Peripheral Pulses: 1+: dorsalis-pedis (R), dorsalis-pedis (L) Respiratory: no respiratory distress, no rales or rhonchi, clear to auscultation Gastrointestinal: normoactive bowel sounds, soft, non-tender abdomen, no palpable masses, other (Obese abdomen, soft), No tenderness, No guarding Genitourinary: no bladder tenderness, No womack in urethra Skin: warm, normal color, no rashes or abrasions Musculoskeletal: generalized weakness (Exam slightly limited secondary to patient's cooperation.), No pain with ROM Neurologic: sensation intact bilaterally, weakness (Generalized), other (No focal deficits but again exam is limited secondary to patient's cooperation. He is able to move all upper and lower extremities with evidence of generalized weakness. He is not able to sit up independently at this time.), No AAOx3, No facial droop Psychiatric: interacting appropriately (Patient alert and interactive. Occasional inappropriate and unrelated commentary. Patient is not agitated), poor insight, poor judgement, poor memory, No thought process linear, No anxious , No depressed Lab Data & Imaging Review 06/26/17 20:25 06/27/17 00:15 WBC 7.68 10^3/uL (3.80-9.50) 06/26/17 20:25 RBC 4.71 10^6/uL (4.40-6.38) 06/26/17 20:25 Hgb 12.0 g/dL (13.7-17.5) L 06/26/17 20:25 POC Hgb 11.2 gm/dL (13.7-17.5) L 06/27/17 00:02 Hct 38.8 % (40.0-51.0) L 06/26/17 20:25 POC Hct 33 % (40-51) L 06/27/17 00:02 MCV 82.4 fL (81.5-99.8) 06/26/17 20:25 MCH 25.5 pg (27.9-34.1) L 06/26/17 20: MCHC 30.9 g/dL (32.4-36.7) L 06/26/17 20:25 RDW 17.2 % (11.5-15.2) H 06/26/17 20:25 Plt Count 292 10^3/uL (150-400) 06/26/17 20: MPV 9.7 fL (8.7-11.7) 06/26/17 20:25 Neut % (Auto) 71.1 % (39.3-74.2) 06/26/17 20: Lymph % (Auto) 14.3 % (15.0-45.0) L 06/26/17 20:25 [place] % (Auto) 9.6 % (4.5-13.0) 06/26/17 20:25 Eos % (Auto) 3.9 % (0.6-7.6) 06/26/17 20: Baso % (Auto) 0.7 % (0.3-1.7) 06/26/17 20: Nucleat RBC Rel Count 0.0 % (0.0-0.2) 06/26/17 20: Absolute Neuts (auto) 5.46 10^3/uL (1.70-6.50) 06/26/17 20:25 Absolute Lymphs (auto) 1.10 10^3/uL (1.00-3.00) 06/26/17 20:25 Absolute Monos (auto) 0.74 10^3/uL (0.30-0.80) 06/26/17 20:25 Absolute Eos (auto) 0.30 10^3/uL (0.03-0.40) 06/26/17 20:25 Absolute Basos (auto) 0.05 10^3/uL (0.02-0.10) 06/26/17 20:25 Absolute Nucleated RBC 0.00 10^3/uL (0-0.01) 06/26/17 20:25 Immature Gran % 0.4 % (0.0-1.1) 06/26/17 20:25 Immature Gran # 0.03 10^3/uL (0.00-0.10) 06/26/17 20:25 POC Sodium 143 mEq/L (135-145) 06/27/17 00:02 Sodium 137 mEq/L (135-145) 06/27/17 00:15 POC Potassium 4.6 mEq/L (3.3-5.0) 06/27/17 00:02 Potassium 4.7 mEq/L (3.5-5.2) 06/27/17 00:15 POC Chloride 110 mEq/L (97-110) 06/27/17 00:02 Chloride 108 mEq/L (97-110) 06/27/17 00:15 Carbon Dioxide 20 mEq/l (22-31) L 06/27/17 00:15 Anion Gap 9 mEq/L (8-16) 06/27/17 00:15 POC BUN 37 mg/dL (7-23) H 06/27/17 00:02 BUN 33 mg/dL (7-23) H 06/27/17 00:15 Creatinine 1.3 mg/dL (0.7-1.3) 06/27/17 00:15 POC Creatinine 1.6 mg/dL (0.7-1.3) H 06/27/17 00:02 Estimated GFR 52 06/27/17 00:15 Glucose 235 mg/dL (70-100) H D 06/27/17 00:15 POC Glucose 126 mg/dL (70-100) H 06/27/17 00:38 Calcium 8.5 mg/dL (8.5-10.4) 06/27/17 00:15 Magnesium 2.0 mg/dL (1.6-2.3) 06/26/17 20:25 Total Bilirubin 0.2 mg/dL (0.1-1.4) 06/26/17 20:25 Conjugated Bilirubin 0.1 mg/dL (0.0-0.5) 06/26/17 20:25 Unconjugated Bilirubin 0.1 mg/dL (0.0-1.1) 06/26/17 20:25 AST 26 IU/L (17-59) 06/26/17 20:25 ALT 31 IU/L (21-72) 06/26/17 20:25 Alkaline Phosphatase 110 IU/L (38-126) 06/26/17 20:25 Creatine Kinase 157 IU/L (0-224) 06/26/17 20:25 Troponin I < 0.012 ng/mL (0.000-0.034) 06/26/17 20:25 Total Protein 8.3 g/dL (6.3-8.2) H 06/26/17 20:25 Albumin 4.5 g/dL (3.5-5.0) 06/26/17 20:25 Lipase 261 IU/L (23-300) 06/26/17 20:25 Imaging Review: CT Brain (Without Contrast) History: Closed head injury in an 86-year-old male with a history of dementia. Comparison is made to the prior study March 02, 2017. Technique: Axial computed tomographic images of the brain are obtained from the base to the vertex without contrast. Images are obtained at 5 mm thickness and reformatted at 1.5 mm. Sagittal and coronal reformations are performed and the study is reviewed at multiple window/level settings. Dose reduction techniques were utilized. Findings: Ventricles, cisterns, and sulci are widened consistent with atrophy. There is no hydrocephalus, midline shift/herniation, or epidural/subdural hematoma. No intraparenchymal hemorrhage or mass effect is identified. Hypodensities are noted in the periventricular and subcortical white matter bilaterally. No acute cortical ischemia is identified. Cerebrovascular atherosclerosis is identified. Bone windows demonstrate no displaced fractures. There is mucous membrane thickening of the maxillary sinuses more pronounced on the left consistent with mild chronic sinus disease. There has been no significant change from the prior study. Impression: Elderly brain with prominent atrophy and probable white matter small vessel disease. Nothing acute is identified. CT Cervical Spine Without Contrast History: Trauma. Technique: Multislice helical CT through the cervical spine without contrast from the skull base to T1. Soft tissue and bone evaluation is performed. Sagittal and coronal reconstructions are obtained and reviewed. Dose reduction techniques were utilized. There was difficulty positioning the patient secondary to his mental status. Findings: There is reversal of the normal cervical curvature. No fracture or dislocation is identified. The relationship between skull base and C1 is normal. The C1-C2 articulation is normal. The odontoid process is normal. The cervical thoracic junction is normal. Soft tissue window evaluation does not show evidence of epidural or prevertebral hematoma. Multilevel degenerative changes are noted. Impression: 1. Negative for fracture. 2. Reversal of the cervical curvature may reflect muscle spasm. 3. Multilevel degenerative changes are noted. Results called and discussed with Tate Last M.D. on 06/26/2017 at 21:49. CT Scan of the Chest (Without Contrast) Clinical Indications: Trauma. Technique: Noncontrast multidetector helical CT imaging was performed from the superior thoracic inlet to the diaphragm. Axial images are obtained at 4 mm intervals and reformatted at 1.5 mm thickness. The examination is reviewed on the workstation at multiple window/ level settings. Sagittal and coronal reformations are performed. Dose reduction techniques were utilized for this examination. Findings: Calcified right lung granulomata are seen and calcified hilar mediastinal lymph nodes are noted with findings consistent with remote granulomatous disease. The lungs are clear. No pneumothorax is identified. Hilar mediastinal contours are normal. There is dilatation of the ascending aorta with a diameter estimated at 4 cm at the level of the main pulmonary artery. Aortic calcifications are seen. There is no evidence for mediastinal hematoma. The heart size is normal. Coronary arterial calcifications are noted. No pericardial effusion is identified. No pleural effusions are seen. Osseous structures are negative for acute posttraumatic sequela. Impression: 1. The chest is negative for acute posttraumatic sequela. 2. See above report for additional findings. CT Scan of the Abdomen and Pelvis With Contrast Indication: Pain following trauma; patient is a poor historian. Technique: Multidetector CT images of the abdomen and pelvis were obtained without intravenous contrast. Axial images are obtained at 5 mm intervals and reformatted at 1.5 mm thickness. The examination is reviewed on the workstation at multiple window/level settings. Sagittal and coronal reformations are performed. Dose reduction techniques were utilized for this examination. Abdomen: Liver: Negative for acute abnormality, a few calcified granulomata are seen. Biliary system: Normal gallbladder. No intra- or extrahepatic dilatation. Spleen: Multiple calcified granulomata are noted. Pancreas: Normal. Adrenals: Normal. Kidneys: No obstruction or solid masses. A cyst of the right kidney is unchanged compared to a previous noncontrast CT of the abdomen February 06, 2017. There is a nonobstructing calculus in the lower pole of the right kidney. Abdominal Aorta: Dense aortic calcification is seen without significant aneurysmal dilatation. No bowel obstruction, ascites, or retroperitoneal lymphadenopathy. A few scattered diverticula are seen without evidence of diverticulitis. CT Pelvis Findings: Bladder is unremarkable. Multiple pelvic calcifications are seen. No acute osseous abnormality is identified. Impression: 1. No acute abdominal or pelvic abnormality. 2. See above report for additional findings. Results called and discussed with Tate Last M.D. on 06/26/2017 at 21:39. CT Scan of the Chest (Without Contrast) Clinical Indications: Trauma. Technique: Noncontrast multidetector helical CT imaging was performed from the superior thoracic inlet to the diaphragm. Axial images are obtained at 4 mm intervals and reformatted at 1.5 mm thickness. The examination is reviewed on the workstation at multiple window/ level settings. Sagittal and coronal reformations are performed. Dose reduction techniques were utilized for this examination. Findings: Calcified right lung granulomata are seen and calcified hilar mediastinal lymph nodes are noted with findings consistent with remote granulomatous disease. The lungs are clear. No pneumothorax is identified. Hilar mediastinal contours are normal. There is dilatation of the ascending aorta with a diameter estimated at 4 cm at the level of the main pulmonary artery. Aortic calcifications are seen. There is no evidence for mediastinal hematoma. The heart size is normal. Coronary arterial calcifications are noted. No pericardial effusion is identified. No pleural effusions are seen. Osseous structures are negative for acute posttraumatic sequela. Impression: 1. The chest is negative for acute posttraumatic sequela. 2. See above report for additional findings. CT Scan of the Abdomen and Pelvis With Contrast Indication: Pain following trauma; patient is a poor historian. Technique: Multidetector CT images of the abdomen and pelvis were obtained without intravenous contrast. Axial images are obtained at 5 mm intervals and reformatted at 1.5 mm thickness. The examination is reviewed on the workstation at multiple window/level settings. Sagittal and coronal reformations are performed. Dose reduction techniques were utilized for this examination. Abdomen: Liver: Negative for acute abnormality, a few calcified granulomata are seen. Biliary system: Normal gallbladder. No intra- or extrahepatic dilatation. Spleen: Multiple calcified granulomata are noted. Pancreas: Normal. Adrenals: Normal. Kidneys: No obstruction or solid masses. A cyst of the right kidney is unchanged compared to a previous noncontrast CT of the abdomen February 06, 2017. There is a nonobstructing calculus in the lower pole of the right kidney. Abdominal Aorta: Dense aortic calcification is seen without significant aneurysmal dilatation. No bowel obstruction, ascites, or retroperitoneal lymphadenopathy. A few scattered diverticula are seen without evidence of diverticulitis. CT Pelvis Findings: Bladder is unremarkable. Multiple pelvic calcifications are seen. No acute osseous abnormality is identified. Impression: 1. No acute abdominal or pelvic abnormality. 2. See above report for additional findings. Results called and discussed with Tate Last M.D. on 06/26/2017 at 21:39. Visualized and Interpreted imaging results: Yes EKG additional interpertation: NSR 60s. Less than [address]-elevation in lead 2. Prominent T-waves in multiple leads. QTC is 405. No acute ST elevations greater than 1 mm. Assessment & Plan Assessment: AK I on CKD stage 3 (Acute) - likely pre renal. Patient with similar admission in April. Daughter reports patient's appetite has improved and includes mostly sweet foods. Will monitor patient's intake and oral hydration and continue to encourage in redirect the patient given his history of dementia. Hyperkalemia (Acute) - status post treatment with IV fluids, bicarb, insulin/ D50. Repeating BMP and monitoring on telemetry. Suspect related to patient's acute kidney insufficiency on CKD likely secondary to a component of dehydration. Generalized weakness - multifactorial including deconditioning, electrolyte disturbance in setting of hyperkalemia, acute renal insufficiency. PT OT in the morning. Fall - etiology of the fall suspect related to generalized weakness and mechanical fall in setting of electrolyte disturbances in acute renal insufficiency.. CT head without evidence of bleed or infarct. PT OT consultation tomorrow. Patient status post appropriate treatment for his hyperkalemia which could be contributing to his weakness. Daughter reports patient's oral intake has improved since his transfer to [facility] Care Unit he has gained weight. Unclear how much free water intake he has been able to tolerate patient has appears to have some component of dehydration. Will continue to encourage regularly. chronic medical issues Dementia - supportive care. Patient with some increasing agitation this evening. Daughter did requested patient received his trazodone and melatonin at HS this evening. Anemia - likely related to chronic disease. No evidence of active bleeding. Continue monitor. CKD - baseline creatinine approximately 1.3 CAD - patient not currently on any antihypertensives or treatment per med rec. Denies any chest pain. Benign essential hypertension - monitor blood pressures at this time. Patient not currently on any antihypertensives per available med rec. HLD - continue statin Hypothyroidismm - resume levothyroxine GERD - resume PPI FEN - status post IV fluid in the ED. Encourage oral hydration. Electrolyte monitoring as noted above check a Mag and phos replacement if appropriate. Cardiac diet as tolerated. PPX - SCDs. Heparin if patient should stay additional day. Otherwise encourage mobilization. COR - current code status is full per the daughter. She will discussed with patient's . Dispo - patient admitted to observation on PCU floor for close cardiac monitoring at this time pending repeat laboratory studies and stabilization of electrolytes.
[2017-06-27 06:14] LABS: PLATELET COUNT 232 10^3/uL (150-400)
[2017-06-27] MEDS: HEPARIN 5,000 UNIT/0.5 ML SYR SC SCH ×3 (06:37→20:17)
[2017-06-27] MEDS ORDERED: NS 1,000 ML IV SCH (09:45)
--- NOTE | 2017-06-27 13:30 | HOSPPROG ---
Hospitalist Progress Note Assessment/Plan: #Hyperkalemia #Dehydration #Acute on chronic renal failure #Advanced dementia #s/p fall and generalized weakness #BPH #Anemia Plan: K is still high give additional ivf now recheck k at 1300, if still elevated then treat hyperkalemia monitor urine output PT/OT appropriate home meds Heparin for DVT proph d/w nurse and team and the pts family at bedside Subjective: confusion is better. good urine output reported. still appears dry. Objective: Vital Signs Temp Pulse Resp BP Pulse Ox 37.1 C 67 18 129/60 H 90 L 06/27/17 11:47 06/27/17 11:47 06/27/17 11:47 06/27/17 11:47 06/27/17 11:47 Laboratory Results 06/27/17 05:10 06/26/17 06/27/17 06/28/17 05:59 05:59 05:59 Intake Total 700 Balance 700 - Physical Exam Constitutional: no apparent distress Eyes: PERRL, EOMI Ears, Nose, Mouth, Throat: moist mucous membranes, hearing normal Cardiovascular: regular rate and rhythym, No edema Respiratory: no respiratory distress, no rales or rhonchi, reduced air movement Gastrointestinal: normoactive bowel sounds, soft, non-tender abdomen Genitourinary: no bladder fullness, no bladder tenderness Skin: warm Neurologic: No AAOx3 Psychiatric: interacting appropriately, not anxious, encephalopathic, No not encephalopathic Lymph, Heme, Immunologic: No petechiae ICD10 Worksheet Patient Problems: Problems Problem Status Onset Acute renal failure Acute Hyperkalemia Acute Coronary artery bypass grafting Active Altered mental status Acute Dementia Acute Diarrhea Acute Lower GI bleed Acute Right shoulder pain Acute Scalp laceration Acute Syncope Acute
[2017-06-27] MEDS: RIVASTIGMINE TD SCH (13:40)
--- NOTE | 2017-06-27 15:04 | ASMTCASEMG ---
Living Arrangements What is your living Answers: Alone arrangement? Who do you live with? Type Of Residence What kind of residence do Answers: [place]sp you live in? Type of Residence Facility Name Notes: [facility] Discharge Plan Comments Coordination Status Comments Notes: Pts case discussed in morning rounds. Pt is a 86 y/o man admitted for acute renal failure and hyperkalemia. Pt fell at his memory care facility. Therapies have been ordered. OT is recommending HC. Awaiting PT recommendations. Needs are TBD at this time. CM spoke w/ ANIKA Billingsley (P#: [phone]) at [facility] and provided updates. CM to follow. Plan: TBD Date Signed: 06/27/2017 03:03 PM Electronically Signed By:ALDA Kang
--- NOTE | 2017-06-27 17:35 | PDMN ---
Medical Necessity Medical necessity: Change to IP, as of 06/27/17, per MD; los >2 mn for ongoing management of hyperkalemia, dehydration, acute on chronic renal failure & generalized weakness s/p fall; admit for further workup/monitoring, IVFs & therapies; hx advanced dementia, CAD s/p CABG, htn, prostate cancer & anemia & BPH; per progress note & order 06/27/17
[2017-06-27] MEDS ORDERED: VENLAFAXINE XR 37.5 MG CAP PO SCH (18:00)
[2017-06-27] MEDS ORDERED: TAMSULOSIN HCL 0.4 MG CAP PO SCH (18:00)
[2017-06-27] MEDS: traZODone 100 MG TAB PO SCH (20:16)
[2017-06-27] MEDS: MELATONIN 3 MG TAB PO SCH (20:16)
[2017-06-27] MEDS: DOCUSATE SODIUM 100 MG CAP PO SCH (20:16)
[2017-06-27] MEDS: FERROUS SULFATE 325 MG TAB PO SCH (20:17)
[2017-06-27] MEDS ORDERED: ATORVASTATIN CALCIUM 40 MG TAB PO SCH (21:00)
[2017-06-27] MEDS ORDERED: MAGNESIUM OXIDE 400 MG TAB PO SCH (21:00)
[2017-06-28 04:18] LABS: PLATELET COUNT 230 10^3/uL (150-400)
[2017-06-28 04:50] VITALS: O2SAT 94
[2017-06-28] MEDS ORDERED: LEVOTHYROXINE 75 MCG TAB PO SCH (06:00)
[2017-06-28] MEDS: HEPARIN 5,000 UNIT/0.5 ML SYR SC SCH (06:08)
[2017-06-28] MEDS ORDERED: CETIRIZINE 10 MG TAB PO SCH (09:00)
[2017-06-28] MEDS ORDERED: RIVASTIGMINE TD SCH (09:00)
[2017-06-28] MEDS ORDERED: PANTOPRAZOLE SODIUM 40 MG TAB PO SCH (09:00)
[2017-06-28] MEDS ORDERED: OMEGA-3 FATTY ACIDS 1,000 MG CAP PO SCH (09:00)
[2017-06-28] MEDS ORDERED: Herbals/Supplements -Info Only PO SCH (09:00)
[2017-06-28] MEDS ORDERED: ASCORBIC ACID 500 MG TAB PO SCH (09:00)
[2017-06-28] MEDS ORDERED: CYANO/VITAMIN B12 1000 MCG TAB PO SCH (09:00)
[2017-06-28] MEDS ORDERED: NON-FORMULARY NEW DRUG (Omeprazole [Prilosec 20 Mg] 20 MG) PO SCH (09:00)
[2017-06-28] MEDS: DOCUSATE SODIUM 100 MG CAP PO SCH (09:18)
[2017-06-28] MEDS: RIVASTIGMINE TD SCH (09:18)
[2017-06-28] MEDS: FERROUS SULFATE 325 MG TAB PO SCH (09:18)
[2017-06-28 09:34] VITALS: BP 141/62; PULSE 60; RESP 18; TEMP 97.8
--- NOTE | 2017-06-28 12:26 | PDDCSUM ---
Discharge Summary Discharge Summary: HPI/Hospital course This is an 86 yo male with advance dementia with behavioral disturbance who was admitted with dehydration, Acute renal failure, and hyperkalemia. K was treated with insulin and Calcium Gluconate in the E.D. Overall as his fluid status improved, so did the dehydration, ARF, and hyperkalemia. He is ready for discharge. He will need to cont with adequate oral intake. Cr and K are within normal at discharge. DDX #Hyperkalemia #Dehydration #Acute on chronic renal failure #Advanced dementia with some acute worsening and behavioral disturbance #s/p fall and generalized weakness #BPH #Anemia Exam: VSS NAD MMM RRR CTA B S/NT/ND NO LE EDEMA MEDS: SEE MED REC. nO CHANGES WERE MADE consultants: none F/u: with pcp in one week total time spent on discharge is 33 minutes including coordination of care with nurse, pharmacist, and CM.
--- NOTE | 2017-06-28 12:27 | PDIAF ---
- Diagnosis Diagnosis: Hyperkalemia, Dehydration Code Status: Full Code - Medication Management Discharge Medications: Medications to Continue on Transfer Tamsulosin HCl 0.4 mg PO DAILY@18 05/05/11 [Last Taken 04/24/17] Atorvastatin Calcium [Lipitor 40 mg (*)] 40 mg PO HS 06/13/11 [Last Taken ] Herbals/Supplements -Info Only 1 ea PO DAILY 03/01/15 [Last Taken Unknown] Levothyroxine [Synthroid 75 mcg (*)] 75 mcg PO DAILY06 03/01/15 [Last Taken 06/10] Ascorbic Acid [Vitamin C 500 mg (*)] 500 mg PO DAILY 02/06/17 [Last Taken ] Cyanocobalamin [Vitamin B12 (*)] 1,000 mcg PO DAILY 04/25/17 [Last Taken ] [place]-3 Fatty Acids [Fish Oil 1000 mg (*)] 1,000 mg PO DAILY 04/25/17 [Last Taken 04/24/17] Omeprazole [Prilosec 20 mg] 20 mg PO DAILY 04/25/17 [Last Taken Unknown] Rivastigmine 13.3mg/24hrs 1 each TD DAILY 04/25/17 [Last Taken 04/24/17] Acetaminophen [Tylenol 325mg (*)] 650 mg PO Q6HRS PRN 06/26/17 [Last Taken Unknown] Cetirizine [ZyrTEC 10 mg (*)] 10 mg PO DAILY 06/26/17 [Last Taken Unknown] Docusate Sodium [Colace 100 MG (*)] 100 mg PO BID 06/26/17 [Last Taken Unknown] Ferrous Sulfate [Ferrous Sulf 325 MG (*)] 325 mg PO BID 06/26/17 [Last Taken Unknown] Magnesium Oxide [Magnesium Oxide 400 mg (*)] 400 mg PO HS 06/26/17 [Last Taken Unknown] Melatonin [Melatonin 3 MG (*)] 3 mg PO HS 06/26/17 [Last Taken Unknown] Venlafaxine Xr [Effexor Xr 37.5MG (*)] 37.5 mg PO DAILY@18 06/26/17 [Last Taken Unknown] traZODone [traZODONE 100MG (*)] 100 mg PO HS 06/26/17 [Last Taken Unknown] Discharge Medications: Refer to the Discharge Home Medication list for PRN reason. - Orders Services needed: Registered Nurse, Physical Therapy, Occupational Therapy Isolation Type: None Diet Recommendation: no restrictions on diet Diet Texture: Regular Texture Diet - Labs/Radiology BMP Date: 07/02/17 (results to pcp) - Follow Up Care Current Providers and Referrals: Jarrod Iniguez MD [[facility] Primary Care Provider] - As per Instructions
--- NOTE | 2017-06-28 13:41 | ASMTLACE ---
LACE Length of stay for Answers: 2 days current admission Acuity / Level of Answers: Yes Care: Did the patient have an inpatient admission? Comorbidities - select Answers: Coronary Atery Disease all that apply Dementia Other Notes: HTN, CKD, HLD, prostate cancer # of Emergency department Answers: 3-4 visits in the last 6 months Score: 14 Date Signed: 06/28/2017 01:40 PM Electronically Signed By:ALDA Kang
--- NOTE | 2017-06-29 09:08 | ASDISCHSUM ---
Discharge Information Plan Status:Home with Home Health Medically Cleared to Leave:06/27/2017 Discharge Date:06/28/2017 02:48 PM CM D/C Disposition: ADT D/C Disposition:Fdc Facility Projected Discharge Date:06/28/2017 11:00 AM Transportation at D/C: Discharge Delay Reason: Follow-Up Date:06/28/2017 11:00 AM Discharge Slot: Final Diagnosis: Placement Information Referral Type:*Home Health Care Services Referral ID:[id number] Provider Name:[facility] Address 1:[address] Address 2: City:[place] Selection Factors: State:[place] Patient Contact Information Contact Name:CHASTITY Relationship:Daughter Address:[address] City:[place] Alternate Phone: State/Zip Code:[place] [address] Email: Financial Information Financial Class:Medicare Primary Plan Desc:MEDICARE INPATIENT Primary Plan Number:[id number] Secondary Plan Desc:AMANDAP/MDR SUPPLEMENT Secondary Plan Number:[id number] Assessment Information LACE LACE Length of stay for Answers: 2 days current admission Acuity / Level of Answers: Yes Care: Did the patient have an inpatient admission? Comorbidities - select Answers: Coronary Atery Disease all that apply Dementia Other Notes: HTN, CKD, HLD, prostate cancer # of Emergency department Answers: 3-4 visits in the last 6 months Score: 14 Date Signed: 06/28/2017 01:40 PM Electronically Signed By:ALDA Kang [facility] Initial CM Assessment Living Arrangements What is your living Answers: Alone arrangement? Who do you live with? Type Of Residence What kind of residence do Answers: Halfway you live in? Type of Residence Facility Name Notes: [facility] Discharge Plan Comments Coordination Status Comments Notes: Pts case discussed in morning rounds. Pt is a 86 y/o man admitted for acute renal failure and hyperkalemia. Pt fell at his memory care facility. Therapies have been ordered. OT is recommending HC. Awaiting PT recommendations. Needs are TBD at this time. CM spoke w/ Analilia RN (P#: [phone]) at [facility] and provided updates. CM to follow. Plan: TBD Date Signed: 06/27/2017 03:03 PM Electronically Signed By:ALDA Kang Case Management Discharge Plan Note Case Management Discharge Discharge Order Complete? Answers: Yes Patient to Obtain Answers: via Family Medications Transportation Arranged Answers: Family/Friends EMTALA Complete Answers: No Case Management Transport Answers: Yes Form Complete Faxed Final Orders Answers: Yes Agency/Facility Transfer Answers: Yes Report Printed & Faxed to Receiving Agency Family Notified Answers: Yes Discharge Comments Notes: Pts case reviewed in morning rounds. Pts unfotunately is being admitted to PCU. Pt is medically stable to d/c back to [facility]. CM has been in contact w/ ANIKA Billingsley at [facility]. CM sent d/c orders to [facility]. CM provided ANIKA Dominguez w/ phone number to give report to [facility]. CM spoke w/ pts scott Canas regarding d/c POC. Therapies are recommending HC. Daughter would like pt to d/c with HC with [facility]. Referral made to [facility]. [facility] able [facility] accept. DC orders sent to [facility]. CM available for changes. Plan: [facility]; PT, OT, RN Date Signed: 06/28/2017 02:41 PM Electronically Signed By:ALDA Kang Intervention Information Intervention Type:*KAMINSKI-Signed Date of Service:06/27/2017 10:01 AM Patient Type:Observation Staff Member:Lina Marshall Hours: Discipline: Severity: Comment: Intervention Type:*Occurence 72 Date of Service:06/26/2017 03:36 AM Patient Type:Inpatient Staff Member:ANIKA Garcia Courtney Hours: Discipline: Severity: Comment:
== END 2017-06-28 14:48 | DRG 682 ==
LOC: EDUNIT# → INTOOBSV 21:55 → F2W 06-27 00:55 → OBSVTOIN 06-27 09:49
PROVIDERS: ADMIT Internal Medicine; ATTEND Family Medicine
DX: N17.9 Acute kidney failure, unspecified (principal); G93.40 Encephalopathy, unspecified; E87.5 Hyperkalemia; E86.0 Dehydration; F03.91 Unspecified dementia, unspecified severity, with behavioral disturbance; I12.9 Hypertensive chronic kidney disease with stage 1 through stage 4 chronic kidney disease, or unspecified chronic kidney disease; N18.3 Chronic kidney disease, stage 3 (moderate); E03.9 Hypothyroidism, unspecified; D63.8 Anemia in other chronic diseases classified elsewhere; I25.10 Atherosclerotic heart disease of native coronary artery without angina pectoris; Z91.81 History of falling; Z95.1 Presence of aortocoronary bypass graft; Z87.891 Personal history of nicotine dependence; Z85.46 Personal history of malignant neoplasm of prostate; Z87.19 Personal history of other diseases of the digestive system
CPT/HCPCS: 82947-QW; 96374; 97161-GP; 97166-GO; G0378; G8978-GP-CJ; G8979-GP-CJ; G8980-GP-CJ; G8987-GO-CK; G8988-GO-CJ; J0610; J1644; J1815

== ENCOUNTER 2017-07-13 14:04 | Observation (INO) | payer OTHER, MEDICARE ==
[2017-07-13] MEDS ORDERED: NS 1,000 ML IV ONE (14:09)
--- NOTE | 2017-07-13 14:13 | EDPHY ---
H & P Time Seen by Provider: 07/13/17 14:08 HPI/ROS: CHIEF COMPLAINT: Slurred speech HISTORY OF PRESENT ILLNESS: Patient is an 86-year-old man with a history of coronary artery disease status post CABG, depression and hypothyroidism who family called paramedics half an hour ago at about 1:30 because he had slurred speech. They report he also has slurred speech yesterday but it resolved spontaneously. Today the daughter was present when it began and she called the ambulance. When paramedics got there they state that he could pass the [place] scale but senior living through the finger to nose he dropped his right arm and slumped over. They then called a stroke alert him brought him to the ER. On my exam the patient was initially sleeping and was angry when I woke him up by pinching him. He had clear speech. He states that he does not want to be here. He is moving all extremities and has equal smile and no tongue deviation. He is not on any blood thinners. REVIEW OF SYSTEMS: Constitutional: denies: chills, fever, recent illness, recent injury EENTM: denies: blurred vision, double vision, nose congestion Respiratory: denies: cough, shortness of breath Cardiac: denies: chest pain, irregular heart rate, lightheadedness, palpitations Gastrointestinal/Abdominal: denies: abdominal pain, diarrhea, nausea, vomiting, blood streaked stools Genitourinary: denies: dysuria, frequency, hematuria, pain Musculoskeletal: denies: joint pain, muscle pain Skin: denies: lesions, rash, jaundice, bruising Neurological: See HPI denies: headache Hematologic/Lymphatic: denies: blood clots, easy bleeding, easy bruising Immunologic/allergic: denies: HIV/AIDS, transplant EXAM: GENERAL: Well-appearing, well-nourished and in no acute distress. HEAD: Atraumatic, normocephalic. EYES: Pupils equal round and reactive to light, extraocular movements intact, sclera anicteric, conjunctiva are normal. ENT: TMs normal, nares patent, oropharynx clear without exudates. Moist mucous membranes. NECK: Normal range of motion, supple without lymphadenopathy or JVD. LUNGS: Breath sounds clear to auscultation bilaterally and equal. No wheezes rales or rhonchi. HEART: Regular rate and rhythm without murmurs, rubs or gallops. ABDOMEN: Soft, nontender, normoactive bowel sounds. No guarding, no rebound. No masses appreciated. BACK: No CVA tenderness, no spinal tenderness, step-offs or deformities EXTREMITIES: Normal range of motion, no pitting or edema. No clubbing or cyanosis. NEUROLOGICAL: Cranial nerves II through XII grossly intact. Normal speech, normal gait. 5/5 strength, normal movement in all extremities, normal sensation , normal cerebellar exam finger to nose, PSYCH: Normal mood, normal affect. SKIN: Warm, dry, normal turgor, no visible rashes or lesions. Source: Patient Exam Limitations: No limitations - Personal History Tetanus Vaccine Date: nov 2012 - Medical/Surgical History Hx Asthma: No Hx Chronic Respiratory Disease: No Hx Diabetes: No Hx Cardiac Disease: Yes Hx Renal Disease: No Hx Cirrhosis: No Hx Alcoholism: No Hx HIV/AIDS: No Hx Splenectomy or Spleen Trauma: No Other PMH: dementia, lipids, thyroid; prostate CA; HTN, CABG, - Family History Significant Family History: No pertinent family hx - Social History Smoking Status: Former smoker Alcohol Use: Sober Drug Use: None Constitutional: Initial Vital Signs Temperature (C) 36.9 C 07/13/17 14:44 Heart Rate 72 07/13/17 14:44 Respiratory Rate 18 07/13/17 14:44 Blood Pressure 118/64 07/13/17 14:44 O2 Sat (%) 96 07/13/17 14:44 O2 Delivery Mode Room Air Allergies/Adverse Reactions: No Known Allergies Allergy (Unverified 06/26/17 20:29) Home Medications: Medication Instructions Recorded Tamsulosin HCl 0.4 mg PO DAILY@18 05/05/11 Atorvastatin Calcium [Lipitor 40 40 mg PO HS 06/13/11 mg (*)] Herbals/Supplements -Info Only 1 ea PO DAILY 03/01/15 Levothyroxine [Synthroid 75 mcg 75 mcg PO DAILY06 03/01/15 (*)] Ascorbic Acid [Vitamin C 500 mg 500 mg PO DAILY 02/06/17 (*)] Cyanocobalamin [Vitamin B12 (*)] 1,000 mcg PO DAILY 04/25/17 [place]-3 Fatty Acids [Fish Oil 1000 1,000 mg PO DAILY 04/25/17 mg (*)] Omeprazole [Prilosec 20 mg] 20 mg PO DAILY 04/25/17 Acetaminophen [Tylenol 325mg (*)] 650 mg PO Q6HRS PRN 06/26/17 Cetirizine [ZyrTEC 10 mg (*)] 10 mg PO DAILY 06/26/17 Docusate Sodium [Colace 100 MG (*)] 100 mg PO BID 06/26/17 Ferrous Sulfate [Ferrous Sulf 325 325 mg PO BID 06/26/17 MG (*)] Magnesium Oxide [Magnesium Oxide 400 mg PO HS 06/26/17 400 mg (*)] Melatonin [Melatonin 3 MG (*)] 3 mg PO HS 06/26/17 Venlafaxine Xr [Effexor Xr 37.5MG 37.5 mg PO DAILY@18 06/26/17 (*)] traZODone [traZODONE 100MG (*)] 100 mg PO HS 06/26/17 Rivastigmine [Rivastigmine] 1 patch TP DAILY 07/13/17 Medical Decision Making - Diagnostics EKG Interpretation: An EKG obtained and was read and documented in trace view. Please see trace view for full reading and report. Sinus rhythm Imaging Results: Imaging Impressions Chest X-Ray 07/13/17 14:10 Impression: 1. Possible left lower lung zone pneumonia. Recommend repeat PA and lateral chest to better evaluate the cardiothoracic equilibrium as well as to evaluate for possible pneumonia. If the patient is unable, consider noncontrast chest CT. 2. Possible impending CHF. Head CT 07/13/17 14:10 Impression: Atrophy and microvascular ischemic disease. Nothing acute. Findings and recommendations discussed with LONI MOTT at 2:22 PM hour, . Final report concurs with initial preliminary interpretation. Head CTA 07/13/17 14:10 Impression: Normal. Findings and recommendations discussed with LONI MOTT at 2:57 PM hour, . Final report concurs with initial preliminary interpretation. Neck CTA 07/13/17 14:10 Impression: 1. 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 Chronicity of this is unclear, but it most likely represents atherosclerotic lesion rather than traumatic lesion. 2. Mild atherosclerosis on the contralateral carotid bulb without significant stenosis. 3. Dominant left vertebral artery. Findings and recommendations were discussed with Dr. Loni Mott at 1457 hour, 07/13/2017. Final report concurs with initial preliminary interpretation. Note: All stenoses are calculated using NASCET Criteria. Imaging: Discussed imaging studies w/ scallop binder Radiologist ED Course/Re-evaluation: Paramedics now tell me that the patient had waxing and waning symptoms yesterday and throughout this morning as well but when the daughter arrived at the [facility] at 1:30 a.m. Is when they decided to call an ambulance. I spoke with Dr. Thomson from [facility] on patient arrival. This patient will not be a tPA candidate. He requested we call him back if there is an abnormality on the angiogram. 2:30 p.m. The patient's staff member is here. She states that he has had some increasing abdominal pain over the last week and had been very fatigued. He was very fatigued yesterday but seemed to perk up after eating a cookie. This morning he was again fatigued and had slurred speech when they called for medical advise this afternoon and they decided to call an ambulance at that point. The daughter actually has not been involved. He is he had a temperature of 99.4 degrees yesterday. No cough or shortness of breath. 2:50 p.m. the patient is very somnolecent. He requires painful stimulus to wake up and falls back asleep during our discussion. However when he does wake up he answers questions appropriately. No slurred speech. I palpated his abdomen and he denies having any pain at all. He denies urinary symptoms. I suspecting that he may be he is overmedicated. He is on Effexor and trazodone and melatonin. Will check a tox panel as well. 3:05 p.m. I discussed the case again with Dr. Wayne from [facility]. We discussed the left internal carotid dissection with plaque the. He agrees that this is likely incidental and recommends aspirin at this time but does not think it is contributing to patient's overall mental status.. He is certainly not exhibiting isolated right-sided deficits. 30 p.m. I discussed the case with Dr. Lai Rothman who will admit to the medical service. Urinalysis pending. Differential Diagnosis: Partial list of the Differential diagnosis considered include but were not limited to; CVA, urinary tract infection, medication reaction and although unlikely based on the history and physical exam, I also considered diverticulitis, obstruction, thrombus, meningitis. Critical Care Time: Critical care time spent by me, Dr. Mott exclusive with this patient was 45 minutes, exclusive of the PA time exclusive of procedures. The organ system that was at risk was neurologic and I gave stroke alert, imaging, monitoring, admission to prevent worsening of the patient's condition - Data Points Laboratory Results: Laboratory Results 07/13/17 14:07 07/13/17 14:07 07/13/17 07/13/17 07/13/17 15:32 15:07 14:09 WBC RBC Hgb POC Hgb 11.9 gm/dL L gm/dL (13.7-17.5) Hct POC Hct 35 % L % (40-51) MCV MCH MCHC RDW Plt Count MPV Neut % (Auto) Lymph % (Auto) [place] % (Auto) Eos % (Auto) Baso % (Auto) Nucleat RBC Rel Count Absolute Neuts (auto) Absolute Lymphs (auto) Absolute Monos (auto) Absolute Eos (auto) Absolute Basos (auto) Absolute Nucleated RBC Immature Gran % Immature Gran # PT INR APTT POC Sodium 136 mEq/L mEq/L (135-145) Sodium POC Potassium 5.0 mEq/L mEq/L (3.3-5.0) Potassium POC Chloride 107 mEq/L mEq/L (97-110) Chloride Carbon Dioxide Anion Gap POC BUN 34 mg/dL H mg/dL (7-23) BUN Creatinine POC Creatinine 1.7 mg/dL H mg/dL (0.7-1.3) Estimated GFR Glucose POC Glucose 101 mg/dL H mg/dL (70-100) Calcium Troponin I TSH Free T4 Urine Color YELLOW Urine Appearance CLEAR Urine pH 5.0 (5.0-7.5) Ur Specific [place] 1.019 (1.002-1.030) Urine Protein NEGATIVE (NEGATIVE) Urine Ketones NEGATIVE (NEGATIVE) Urine Blood NEGATIVE (NEGATIVE) Urine Nitrate NEGATIVE (NEGATIVE) Urine Bilirubin NEGATIVE (NEGATIVE) Urine Urobilinogen NEGATIVE EU EU (0.2-1.0) Ur Leukocyte Esterase NEGATIVE (NEGATIVE) Urine RBC 1-3 /hpf /hpf (0-3) Urine WBC 1-3 /hpf /hpf (0-3) Ur Epithelial Cells NONE SEEN /lpf /lpf (NONE-1+) Urine Glucose NEGATIVE (NEGATIVE) Urine Opiates Screen NEGATIVE (NEGATIVE) Urine Barbiturates NEGATIVE (NEGATIVE) Ur Phencyclidine Scrn NEGATIVE (NEGATIVE) Ur Amphetamine Screen NEGATIVE (NEGATIVE) U Benzodiazepines Scrn NEGATIVE (NEGATIVE) Urine Cocaine Screen NEGATIVE (NEGATIVE) U Marijuana (THC) Screen NEGATIVE (NEGATIVE) Ethyl Alcohol Patient ABO/Rh A POSITIVE Antibody Screen NEGATIVE 07/13/17 07/13/17 07/13/17 14:07 14:07 14:07 WBC RBC Hgb POC Hgb Hct POC Hct MCV MCH MCHC RDW Plt Count MPV Neut % (Auto) Lymph % (Auto) [place] % (Auto) Eos % (Auto) Baso % (Auto) Nucleat RBC Rel Count Absolute Neuts (auto) Absolute Lymphs (auto) Absolute Monos (auto) Absolute Eos (auto) Absolute Basos (auto) Absolute Nucleated RBC Immature Gran % Immature Gran # PT INR APTT POC Sodium Sodium 135 mEq/L mEq/L (135-145) POC Potassium Potassium 5.3 mEq/L H mEq/L (3.5-5.2) POC Chloride Chloride 105 mEq/L mEq/L (97-110) Carbon Dioxide 20 mEq/l L mEq/l (22-31) Anion Gap 10 mEq/L mEq/L (8-16) POC BUN BUN 34 mg/dL H mg/dL (7-23) Creatinine 1.6 mg/dL H mg/dL (0.7-1.3) POC Creatinine Estimated GFR 41 Glucose 89 mg/dL mg/dL (70-100) POC Glucose Calcium 8.5 mg/dL mg/dL (8.5-10.4) Troponin I < 0.012 ng/mL ng/mL (0.000-0.034) TSH Pending 2.380 uIU/mL uIU/mL (0.465-4.680) Free T4 1.43 ng/dL ng/dL (0.59-2.19) Urine Color Urine Appearance Urine pH Ur Specific [place] Urine Protein Urine Ketones Urine Blood Urine Nitrate Urine Bilirubin Urine Urobilinogen Ur Leukocyte Esterase Urine RBC Urine WBC Ur Epithelial Cells Urine Glucose Urine Opiates Screen Urine Barbiturates Ur Phencyclidine Scrn Ur Amphetamine Screen U Benzodiazepines Scrn Urine Cocaine Screen U Marijuana (THC) Screen Ethyl Alcohol < 10 mg/dL mg/dL (0-10) Patient ABO/Rh Antibody Screen 07/13/17 07/13/17 14:07 14:07 WBC 5.43 10^3/uL 10^3/uL (3.80-9.50) RBC 4.38 10^6/uL L 10^6/uL (4.40-6.38) Hgb 11.0 g/dL L g/dL (13.7-17.5) POC Hgb Hct 35.4 % L % (40.0-51.0) POC Hct MCV 80.8 fL L fL (81.5-99.8) MCH 25.1 pg L pg (27.9-34.1) MCHC 31.1 g/dL L g/dL (32.4-36.7) RDW 17.2 % H % (11.5-15.2) Plt Count 197 10^3/uL 10^3/uL (150-400) MPV 9.4 fL fL (8.7-11.7) Neut % (Auto) 64.4 % % (39.3-74.2) Lymph % (Auto) 15.5 % % (15.0-45.0) [place] % (Auto) 17.7 % H % (4.5-13.0) Eos % (Auto) 1.1 % % (0.6-7.6) Baso % (Auto) 0.7 % % (0.3-1.7) Nucleat RBC Rel Count 0.0 % % (0.0-0.2) Absolute Neuts (auto) 3.50 10^3/uL 10^3/uL (1.70-6.50) Absolute Lymphs (auto) 0.84 10^3/uL L 10^3/uL (1.00-3.00) Absolute Monos (auto) 0.96 10^3/uL H 10^3/uL (0.30-0.80) Absolute Eos (auto) 0.06 10^3/uL 10^3/uL (0.03-0.40) Absolute Basos (auto) 0.04 10^3/uL 10^3/uL (0.02-0.10) Absolute Nucleated RBC 0.00 10^3/uL 10^3/uL (0-0.01) Immature Gran % 0.6 % % (0.0-1.1) Immature Gran # 0.03 10^3/uL 10^3/uL (0.00-0.10) PT 15.8 SEC H SEC (12.0-15.0) INR 1.24 H (0.83-1.16) APTT 31.7 SEC SEC (23.0-38.0) POC Sodium Sodium POC Potassium Potassium POC Chloride Chloride Carbon Dioxide Anion Gap POC BUN BUN Creatinine POC Creatinine Estimated GFR Glucose POC Glucose Calcium Troponin I TSH Free T4 Urine Color Urine Appearance Urine pH Ur Specific [place] Urine Protein Urine Ketones Urine Blood Urine Nitrate Urine Bilirubin Urine Urobilinogen Ur Leukocyte Esterase Urine RBC Urine WBC Ur Epithelial Cells Urine Glucose Urine Opiates Screen Urine Barbiturates Ur Phencyclidine Scrn Ur Amphetamine Screen U Benzodiazepines Scrn Urine Cocaine Screen U Marijuana (THC) Screen Ethyl Alcohol Patient ABO/Rh Antibody Screen Medications Given: Discontinued Medications Aspirin (Aspirin) 324 mg PO EDNOW ONE Stop: 07/13/17 15:08 Last Admin: 07/13/17 15:42 Dose: 324 mg Sodium Chloride (Ns) 1,000 mls @ 500 mls/hr IV EDNOW ONE PRN Reason: Protocol Stop: 07/13/17 16:08 Last Admin: 07/13/17 14:54 Dose: 1,000 mls Point of Care Test Results: 07/13/17 14:09 POC Sodium 136 POC Potassium 5.0 POC Chloride 107 POC BUN 34 H POC Creatinine 1.7 H POC Glucose 101 H Departure [facility] Impression: Altered mental status Qualifiers: Altered mental status type: somnolence Qualified Code(s): R40.0 - Somnolence Condition: Fair
[2017-07-13] MEDS ORDERED: IOPAMIDOL (ISOVUE 370) 100 ML BTL IV ONE (14:15)
[2017-07-13 14:24] LABS: PLATELET COUNT 197 10^3/uL (150-400)
[2017-07-13 14:40] LABS: INR 1.24 (0.83-1.16); PROTIME(PATIENT) 15.8 SEC (12.0-15.0)
[2017-07-13] MEDS ORDERED: AMMONIA AROMATIC 1 EACH AMP IH ONE (14:52)
--- NOTE | 2017-07-13 15:03 | CPEKG ---
Heart Rate: 68 RR Interval: 882 P-R Interval: 200 QRSD Interval: 98 QT Interval: 392 QTC Interval: 417 P [place]: 52 QRS [place]: 71 T Wave [place]: 45 EKG Severity - NORMAL ECG - EKG Impression: SINUS RHYTHM Electronically Signed By: Miko Mott 13-Jul-2017 15:21:56
[2017-07-13] MEDS ORDERED: ASPIRIN 81 MG CHEWABLE TAB PO ONE (15:07)
--- NOTE | 2017-07-13 16:17 | ASMTCMCOM ---
CM Note CM Note Notes: Pt presents to ED as a Stroke Alert. Paramedics report pt's daughter, who was visiting him at [facility], called the ambulance. Pt here recently & was discharged back to [facility] with [facility]. Spoke with [facility] & confirmed pt is current with them for RN/PT/OT services. CM will continue to follow. Date Signed: 07/13/2017 04:16 PM Electronically Signed By:Stella Garcia RN
[2017-07-13] MEDS ORDERED: PROMETHAZINE HCL 25 MG/ML INJ IVP PRN (18:07)
[2017-07-13] MEDS ORDERED: ONDANSETRON 4 MG/2 ML VIAL IVP PRN (18:07)
[2017-07-13] MEDS ORDERED: ONDANSETRON DISINTEGRATING 4 MG TAB PO PRN (18:07)
[2017-07-13] MEDS ORDERED: ACETAMINOPHEN 325 MG TAB PO PRN (18:07)
[2017-07-13] MEDS: NS 1,000 ML IV SCH (18:49)
[2017-07-13 19:34] VITALS: RESP 16
--- NOTE | 2017-07-13 21:07 | GHP ---
[f rep st] HISTORY AND PHYSICAL DATE OF ADMISSION: 07/13/2017 CHIEF COMPLAINT: Unresponsiveness. HISTORY OF PRESENT ILLNESS: This is an 86-year-old man with a past medical history that includes adv anced dementia, coronary artery disease and frequent falls. The patient has been residing at [facility] for the last several months and is accompanied here by one of his caregivers. She n otes that he has been fairly rapidly declining over the last several months in terms of his mental st atus and overall ability to function. She notes that over the last week, he has had several periods where he becomes unresponsive for a period of time, only responding to painful stimuli and then will interact more or less appropriately for several seconds and then immediately go back into an unrespon sive state. She notes this would only last for usually a short period of time. However, today, the episode he is currently having seems to be much worse. There is no suggestion that he has had any ch anges in his usual medications or increase in his medications but this was difficult to be confirmed by the caregiver and the patient was unable to give any history at all. It was noted today that at [facility], they were unable to wake him. When they did finally wake him, he was noted to be very weak and his speech was felt to be garbled. Per caregiver, at baseline, he is relatively ambul atory independently and able to interact, though he is noted to be frequently falling and, again, has these episodes of unresponsiveness periodically at least for the last week. At the time my evaluation, patient will wake up and follow commands to painful stimuli, but promptly will close his eyes again and stop responding. He was noted to be moving all extremities. Initially , in the emergency department, was noted to have clear speech. Though at the time of my evaluation, speech seems to be somewhat garbled. PAST MEDICAL HISTORY: 1. Advanced dementia. 2. Chronic kidney disease with baseline creatinine 1.3. 3. Coronary artery disease. 4. Frequent falls. 5. BPH. 6. Hyperlipidemia. 7. Hypothyroid. 8. GERD. 9. Peptic ulcer disease. 10. Prostate cancer. PAST SURGICAL HISTORY: CABG. FAMILY HISTORY: This is reviewed, is noncontributory. SOCIAL HISTORY: The patient is . His is currently here in the hospital. He resides at [facility]. He is a prior tobacco user. Denies alcohol. REVIEW OF SYSTEMS: This is unobtainable secondary to patient's mental status. MEDICATIONS: 1. Rivastigmine. 2. Levothyroxine. 3. Trazodone. 4. Venlafaxine. 5. Tamsulosin. 6. Omeprazole. 7. [place] 3 fatty acids. 8. Melatonin. 9. Mag oxide. 10. Ferrous sulfate. 11. Docusate. 12. Cyanocobalamin. 13. Cetirizine. 14. Atorvastatin. 15. Ascorbic acid. 16. Tylenol. ALLERGIES: No known drug allergies. PHYSICAL EXAMINATION: VITAL SIGNS: BP 132/66, heart rate 61, respiratory rate 16, O2 sats 95% on ro om air, temperature 36.9. GENERAL APPEARANCE: This is an elderly man. He is well developed, well n ourished. HEENT: Anicteric. Pupils appear equal, round, reactive to light. Moist mucous membranes . CARDIOVASCULAR: Regular rate and rhythm. No MRG. Mildly bradycardic. PULMONARY: CTA bilateral ly. Normal work of breathing. This is the anterior exam. ABDOMEN: Obese, soft, positive bowel efrain nds. EXTREMITIES: No clubbing, cyanosis, or edema. SKIN: Warm, dry, well perfused. NEURO/PSYCH: The patient responds to painful stimuli. Moves all 4 extremities spontaneously. His speech is uncl ear at times and only intermittently following commands. IMAGING: Head CT, personally reviewed and interpreted, shows nothing acute. Head and neck CTA: CTA head is unremarkable. CTA neck shows focal dissection, ulcerated plaque at t he base of the left internal carotid was felt to be likely more chronic and atherosclerotic in nature . LABORATORY: Hemoglobin of 11, hematocrit 35, white count of 5.4. Coags are within normal limits. B UN of 34, creatinine of 1.7. ASSESSMENT/PLAN: This is an 86-year-old man with advanced dementia, presenting with acute on chronic encephalopathy. 1. Acute on chronic encephalopathy. At this point, it is difficult to determine whether this repres ents continued subacute decline versus a new process. In discussion with the patient's caregiver, it does sound as if he has been having similar episodes over the last week that have been self-limited. No clear evidence to suggest infection at this point. Although there is a comment of a left international project manager al carotid dissection in discussion with Radiology and [facility], this is not felt to be con tributing to his presentation given that this appears to be more chronic. Neurology will be consulte d in the morning. We will check TSH and B12. Other consideration would be for inadvertent medicatio n overdose. He is on several sedating medications including trazodone and venlafaxine, though this i s felt to be unlikely by his caregiver. Again, we will continue to monitor for the time being and as k for a neurologic consult in the morning. 2. Left internal carotid dissection. Again, this is felt to be likely incidental due to the fact th at this is covered in plaque. Head CT was unremarkable. Again, Neurology will be consulted. [facility] has been in communication with the emergency room doctor and concurs with Radiology asse ssment that this is likely a chronic picture. 3. Advanced dementia as per problem #1. This does seem to be accelerating. He does live in a memor care unit. 4. Acute kidney injury on chronic kidney disease. Patient likely somewhat dry given his worsening m ental status. We will start intravenous fluids and reassess in the morning. 5. Frequent falls/failure to thrive. This sounds as if the patient is on a more rapid decline. The re was concern raised by the caregiver that he may be entering into a more active dying phase. We wi ll ask Physical Therapy and Occupational Therapy to evaluate. Consider palliative consult if this se ems to be indicated. 6. Anemia. This is mild and stable. We will follow up in the morning. 7. Chronic medical issues including benign prostatic hypertrophy, hyperlipidemia, hypothyroid, gastr oesophageal reflux disease. We will resume his home medications once his mental status is appropriat e to take pills. These do not seem likely be contributing to his current presentation. 8. Deep vein thrombosis prophylaxis. Low-molecular weight heparin. 9. Code status. The patient has been full code in the past. This is discussed with the caregiver, who does not believe there has been any change. A current MOLST form does indicate the patient would be a full code. The patient is new to my care. Old records reviewed. Summaries as per History of Present Illness an d Past Medical History. Care plan reviewed with emergency room physician including plans for further evaluation and neurologic consult. /[id number]/MODL
[2017-07-14 05:16] LABS: PLATELET COUNT 167 10^3/uL (150-400)
[2017-07-14] MEDS ORDERED: LEVOTHYROXINE 75 MCG TAB PO SCH (06:00)
[2017-07-14 08:34] VITALS: PULSE 75; O2SAT 91
[2017-07-14] MEDS ORDERED: ENOXAPARIN 30 MG/0.3 ML SYR SC SCH (09:00)
[2017-07-14] MEDS: NS 1,000 ML IV SCH (10:34)
[2017-07-14 11:59] VITALS: BP 133/64; TEMP 98.2
--- NOTE | 2017-07-14 12:58 | GCON ---
[f rep st] CONSULTATION NEUROLOGY CONSULT REFERRING PHYSICIAN: Lai Rothman MD CHIEF COMPLAINT: Slurred speech. HISTORY OF PRESENT ILLNESS: The patient is a very pleasant 86-year-old gentleman, well known to the Neurology service as he has been seen previously by Dr Dowell and he has underlying advanced dementia. I read an EEG in 2016 which was normal on this patient. The patient lives in assisted living and has baseline dementia as noted above. Apparently, his daughter went to visit the patient and thought his speech was slurred and activated 911, who brought the patient to the emergency department under a stroke alert. The patient had a full stroke evaluation. CTA of the head was negative. CT head without contrast showed atrophy and microvascular changes, nothing acute. CTA of the neck showed focal dissection or ulcerated plaque at the left base of the left internal carotid artery with false lumen contributing to about a 40% stenosis of the true lumen. Chronicity was noted to be unclear, but they felt it was most likely an atherosclerotic lesion rather than a traumatic dissection. The patient, from reviewing his previous notes, essentially is at his baseline of significant cognitive dysfunction. There have been no other new symptoms or problems such as seizures. He has had previous fluctuations of his dementia affecting his speech and lucidity per medical records. Review of systems was unable to be obtained from the patient due to his dementia. For past medical history, social history, family history, home medications, allergies, see Dr Rothman's H and P. PHYSICAL EXAMINATION: VITAL SIGNS: Blood pressure 133/64, temperature 36.8, heart rate 75. GENERAL: The patient is awake and alert and has severe cognitive impairment, is unable to answer any questions coherently. When I asked him where he lives, he asked me where I lived and thought we may be "neighbors." NEUROLOGIC: Cranial nerve exam revealed full extraocular movements and symmetric face. He had no convulsive movements or myoclonus on motor exam. IMPRESSION AND PLAN: 1. Advanced dementia. 2. Left internal carotid artery disease. Overall, the patient may have had fluctuation in his underlying dementia as characterized by altered mental status/slurred speech. He had an abnormal finding on angiography of the neck, which Radiology felt is more atherosclerotic than traumatic. In any case, even if we considered it a vessel dissection, antiplatelet therapy would be adequate. We will discharge the patient on aspirin 81 mg daily. The patient has been counseled on potential risks, benefits, and alternatives of antiplatelet therapy. I do not see any further interventions, diagnostics or treatments indicated now based on the entire clinical picture, past inpatient records, and current clinical status. I discussed the case with the hospital medicine team as well. We are in agreement with the plan. No further recommendations. We will sign off and follow up as needed. Please do not hesitate to call with any questions or changes in neurologic status of this very pleasant patient. seventy total minutes on the floor today reviewing previous inpatient records, including previous neurologic consultations, EEG report, trying to obtain history from the patient, and coordination of care. Thank you for this consult. /[id number]/MODL [facility]
--- NOTE | 2017-07-14 13:05 | PDIAF ---
- Diagnosis Diagnosis: encephalopathy Code Status: Full Code - Medication Management Discharge Medications: Medications to Continue on Transfer Tamsulosin HCl 0.4 mg PO DAILY@18 05/05/11 [Last Taken 07/12/17] Atorvastatin Calcium [Lipitor 40 mg (*)] 40 mg PO HS 06/13/11 [Last Taken ] Herbals/Supplements -Info Only 1 ea PO DAILY 03/01/15 [Last Taken Unknown] Levothyroxine [Synthroid 75 mcg (*)] 75 mcg PO DAILY06 03/01/15 [Last Taken ] Ascorbic Acid [Vitamin C 500 mg (*)] 500 mg PO DAILY 02/06/17 [Last Taken ] Cyanocobalamin [Vitamin B12 (*)] 1,000 mcg PO DAILY 04/25/17 [Last Taken ] [place]-3 Fatty Acids [Fish Oil 1000 mg (*)] 1,000 mg PO DAILY 04/25/17 [Last Taken 07/13/17] Omeprazole [Prilosec 20 mg] 20 mg PO DAILY 04/25/17 [Last Taken 07/13/17] Acetaminophen [Tylenol 325mg (*)] 650 mg PO Q6HRS PRN 06/26/17 [Last Taken Unknown] Cetirizine [ZyrTEC 10 mg (*)] 10 mg PO DAILY 06/26/17 [Last Taken 07/13/17] Docusate Sodium [Colace 100 MG (*)] 100 mg PO BID 06/26/17 [Last Taken 07/13/17 08:00] Ferrous Sulfate [Ferrous Sulf 325 MG (*)] 325 mg PO BID 06/26/17 [Last Taken 08:00] Magnesium Oxide [Magnesium Oxide 400 mg (*)] 400 mg PO HS 06/26/17 [Last Taken 07/12/17] Melatonin [Melatonin 3 MG (*)] 3 mg PO HS 06/26/17 [Last Taken 07/12/17] Venlafaxine Xr [Effexor Xr 37.5MG (*)] 37.5 mg PO DAILY@18 06/26/17 [Last Taken 07/12/17] Rivastigmine 1 patch TP DAILY 07/13/17 [Last Taken 07/13/17] Aspirin [Aspirin 81mg (*)] 81 mg PO DAILY #30 tab 07/14/17 [Last Taken Unknown] traZODone [traZODONE 100MG (*)] 100 mg PO HS PRN #0 07/14/17 [Last Taken ] Discharge Medications: Refer to the Discharge Home Medication list for PRN reason. - Orders Services needed: Registered Nurse, Physical Therapy, Occupational Therapy Isolation Type: None Diet Recommendation: no restrictions on diet Diet Texture: Regular Texture Diet, Thin Liquids, Meds Whole w/Liquids - Follow Up Care Current Providers and Referrals: Patient,NotPresent [Unknown] - As per Instructions
--- NOTE | 2017-07-14 15:34 | GDS ---
[f rep st] DISCHARGE SUMMARY DISCHARGE DIAGNOSES: Include: 1. Acute encephalopathy, resolved. 2. Advanced dementia. 3. Chronic kidney disease. 4. Coronary artery disease. 5. Benign prostatic hypertrophy. 6. Hyperlipidemia. 7. Hypothyroidism. 8. Gastroesophageal reflux disease. 9. Peptic ulcer disease. 10. History of prostate cancer. HISTORY OF PRESENT ILLNESS: An 86-year-old male who is brought in from his memory care unit for unre sponsiveness. For details of patient's initial presentation, please see the history and physical jennifer ed 07/13/2017. CONSULTATIVE SERVICES: Include neurology. PROCEDURES: 07/13/2017, patient had a noncontrast CT of the head that shows no acute findings. 07/13/2017, patient had a CTA of the head and neck that showed ulcerated plaque of the left internal carotid artery with 40% stenosis of the true lumen. HOSPITAL COURSE BY ISSUE: Acute unresponsiveness: It sounds as if, per caregivers, the patient had some decline prior to his presentation to the hospital, described as unresponsive during initial eval uations. Imaging was inconsistent with acute stroke, but did find luminal irregularities on CTA. Placido moe was admitted, hydrated, and monitored on the medical floor. The morning after admission at trae roximately 10 a.m., patient woke up and was in his baseline state of health. Was assessed by physica l therapy, occupational therapy, speech therapy, and neurology; all felt that he was at his pre-descr ibed baselines. Neurology did not recommend additional imaging or interventions, but the addition of a baby aspirin for the luminal irregularities visualized on CTA. The patient took a normal lunch an d will be discharged back to his longterm facility/memory care unit. Only medication changes that will be made will be the addition of the baby aspirin and alteration of his standing trazodone p rescription to p.r.n. only for sleep rather than scheduled. Rest of the medications were reviewed by pharmacy and thought noncontributory to his initial presentation. A clear explanation for his initi al unresponsiveness remains unclear at the time of his disposition beyond fluctuating mental status r elated to his severe underlying cognitive deficits. MEDICATIONS AT THE TIME OF TRANSFER: Please reference the med rec printed on 07/14/2017. FOLLOWUP APPOINTMENTS: Include with his outpatient primary care provider on his normal schedule, and with his inpatient memory care providers for general supportive care and monitoring. PENDING STUDIES: At the time of this dictation, none. TIME SPENT: I spent greater than 30 minutes in the planning and coordination of this discharge. /[id number]/MODL
--- NOTE | 2017-07-14 17:12 | ASDISCHSUM ---
Discharge Information Plan Status:Home with Home Health Medically Cleared to Leave:07/14/2017 Discharge Date:07/14/2017 03:56 PM CM D/C Disposition:Home Health Service ADT D/C Disposition:Fdc Facility Projected Discharge Date:07/14/2017 11:00 AM Transportation at D/C:Friend Discharge Delay Reason: Follow-Up Date:07/14/2017 11:00 AM Discharge Slot: Final Diagnosis: Placement Information Referral Type:*Home Health Care Services Referral ID:[id number] Provider Name:[facility] Address 1:[address] Address 2: City:[place] Selection Factors: State:[place] Referral Type:Assisted Living Residence Referral ID:[id number] Provider Name:[facility] Address 1:[address] [place] [address] Phone Number: Address 2: Fax Number: City:[place] Selection Factors: State:[place] Patient Contact Information Contact Name:CHASTITY Relationship:Daughter Address:[address] City:[place] Alternate Phone: State/Zip Code:[place] [address] Email: Financial Information Financial Class:Medicare Primary Plan Desc:MEDICARE OUTPATIENT Primary Plan Number:[id number] Secondary Plan Desc:[employer]/MDR SUPPLEMENT Secondary Plan Number:[id number] Assessment Information [facility] CM Progress Note CM Note CM Note Notes: Pt presents to ED as a Stroke Alert. Paramedics report pt's daughter, who was visiting him at [facility], called the ambulance. Pt here recently & was discharged back to [place] [facility] with [facility]. Spoke with [facility] & confirmed pt is current with them for RN/PT/OT services. CM will continue to follow. Date Signed: 07/13/2017 04:16 PM Electronically Signed By:Stella Garcia RN Intervention Information
--- NOTE | 2017-07-14 17:18 | ASMTLACE ---
LACE Length of stay for Answers: 2 days current admission Acuity / Level of Answers: No Care: Did the patient have an inpatient admission? Comorbidities - select Answers: Coronary Artery Disease all that apply Dementia History of falls Other Notes: chronic kidney disease, prostate CA # of Emergency department Answers: 3-4 visits in the last 6 months Score: 14 Date Signed: 07/14/2017 05:17 PM Electronically Signed By:DEZ Roy
[2017-07-15] MEDS ORDERED: ENOXAPARIN 40 MG/0.4 ML SYR SC SCH (09:00)
== END 2017-07-14 15:56 ==
LOC: EDUNIT# → F3N 18:16
PROVIDERS: ADMIT Internal Medicine; ATTEND Internal Medicine
DX: F03.90 Unspecified dementia, unspecified severity, without behavioral disturbance, psychotic disturbance, mood disturbance, and anxiety (principal); G93.40 Encephalopathy, unspecified; N18.9 Chronic kidney disease, unspecified; I25.10 Atherosclerotic heart disease of native coronary artery without angina pectoris; N40.0 Benign prostatic hyperplasia without lower urinary tract symptoms; E86.9 Volume depletion, unspecified; E03.9 Hypothyroidism, unspecified; K21.9 Gastro-esophageal reflux disease without esophagitis; K27.9 Peptic ulcer, site unspecified, unspecified as acute or chronic, without hemorrhage or perforation; Z85.46 Personal history of malignant neoplasm of prostate; Z87.891 Personal history of nicotine dependence
CPT/HCPCS: 70450; 70496; 70498; 71046; 92610; 93005; 96360; 97162; 97165; 99291; G0378; G8978; G8979; G8980; G8987; G8988; G8989; G8996; G8997; G8998; J1650; Q9967; 80305; 82607-90; 82947-QW; G0480

== ENCOUNTER 2017-07-17 11:09 | Inpatient (IN) | payer OTHER, MEDICARE ==
[2017-07-17 11:28] LABS: PLATELET COUNT 207 10^3/uL (150-400)
--- NOTE | 2017-07-17 12:10 | EDPHY ---
H & P Time Seen by Provider: 07/17/17 12:09 HPI/ROS: Chief complaint. Altered level of consciousness HPI. 86-year-old male presents emergency department with an episode of unresponsiveness that occurred this morning at [facility]. He had a similar episode on July 13 and was admitted and worked up in the etiology was really never found. This morning he had a similar episode. The duration is unclear. He is now back to normal per care providers. Apparently has not been sick. There is no been no injury or fall. No chest discomfort or trouble breathing. No recent change in medication. ROS Constitutional. no fever/chills, no weakness Eyes. no problems with vision ENT. no sore throat, no nasal drainage Cardiovascular. no chest pain Respiratory. no shortness of breath, no cough Abdominal. no abdominal pain, no nausea/vomiting, no diarrhea . no problems urinating MS. no calf pain/swelling, no neck/back pain, no joint pain Skin. no rash Lymph. no swollen glands Neuro. Decreased responsiveness Past Medical/Surgical History: Past medical history is significant for dementia, dyslipidemia, hypothyroid, chronic renal insufficiency, prostate cancer, hypertension core my coronary artery bypass graft Patient remains full core Social History: Single, nonsmoker, no alcohol Smoking Status: Former smoker Physical Exam: General Appearance: Arousable to verbal stimuli and then speaks to me otherwise somewhat sleeping. Vital signs stable. No obvious distress Eyes: Pupils equal and round no pallor or injection. ENT, Mouth: Mucous membranes are moist. Respiratory: There are no retractions, lungs are clear to auscultation. Cardiovascular: Regular rate and rhythm. Gastrointestinal: Abdomen is soft and nontender, no masses, bowel sounds normal. Neurological: Awake and alert, sensory and motor exams grossly normal. Skin: Warm and dry, no rashes. Musculoskeletal: Neck is supple nontender. Extremities symmetrical, full range of motion. Psychiatric: Patient is oriented X 1, there is no agitation. Constitutional: Initial Vital Signs Temperature (C) 36.6 C 07/17/17 11:18 Heart Rate 68 07/17/17 11:18 Respiratory Rate 18 07/17/17 11:18 Blood Pressure 123/76 H 07/17/17 11:18 O2 Sat (%) 98 07/17/17 11:18 O2 Delivery Mode Room Air Allergies/Adverse Reactions: No Known Allergies Allergy (Unverified 06/26/17 20:29) Home Medications: Medication Instructions Recorded Tamsulosin HCl 0.4 mg PO DAILY18 05/05/11 Atorvastatin Calcium [Lipitor 40 40 mg PO HS 06/13/11 mg (*)] Herbals/Supplements -Info Only 1 ea PO DAILY 03/01/15 Levothyroxine [Synthroid 75 mcg 75 mcg PO DAILY06 03/01/15 (*)] Ascorbic Acid [Vitamin C 500 mg 500 mg PO DAILY 02/06/17 (*)] Cyanocobalamin [Vitamin B12 (*)] 1,000 mcg PO DAILY 04/25/17 Sidell-3 Fatty Acids [Fish Oil 1000 1,000 mg PO DAILY 04/25/17 mg (*)] Omeprazole [Prilosec 20 mg] 20 mg PO DAILY 04/25/17 Acetaminophen [Tylenol 325mg (*)] 650 mg PO Q6HRS PRN 06/26/17 Cetirizine [ZyrTEC 10 mg (*)] 10 mg PO DAILY 06/26/17 Docusate Sodium [Colace 100 MG (*)] 100 mg PO BID 06/26/17 Ferrous Sulfate [Ferrous Sulf 325 325 mg PO BID 06/26/17 MG (*)] Magnesium Oxide [Magnesium Oxide 400 mg PO HS 06/26/17 400 mg (*)] Melatonin [Melatonin 3 MG (*)] 3 mg PO HS 06/26/17 Venlafaxine Xr [Effexor Xr 37.5MG 37.5 mg PO DAILY@18 06/26/17 (*)] Rivastigmine 1 patch TP DAILY 07/13/17 Aspirin [Aspirin 81mg (*)] 81 mg PO DAILY #30 tab 07/14/17 traZODone [traZODONE 100MG (*)] 100 mg PO HS 07/17/17 Medical Decision Making - Diagnostics Imaging Results: Imaging Impressions Chest X-Ray 07/17/17 12:49 Impression: 1. Congestive heart failure. 2. Left basilar opacity probably atelectasis. One-view chest x-ray interpreted by me is no obvious pneumonia Procedures: IV normal saline Sepsis workup ED Course/Re-evaluation: The patient, his caregiver and and daughter by telephone and I discussed imaging and lab results. We discussed treatment plan including recommendation for admission. They expressed understanding and agreement. They would like the patient to remain full core. Differential Diagnosis: I have considered sepsis and infection. This may be sequelae of the patient's dementia. Does have a large workup looking for evidence for CVA and TIA without any findings. - Data Points Laboratory Results: Laboratory Results 07/17/17 11:15 07/17/17 11:15 07/17/17 07/17/17 07/17/17 13:30 13:15 11:15 WBC RBC Hgb Hct MCV MCH MCHC RDW Plt Count MPV Neut % (Auto) Lymph % (Auto) [place] % (Auto) Eos % (Auto) Baso % (Auto) Nucleat RBC Rel Count Absolute Neuts (auto) Absolute Lymphs (auto) Absolute Monos (auto) Absolute Eos (auto) Absolute Basos (auto) Absolute Nucleated RBC Immature Gran % Immature Gran # PT INR APTT VBG Lactic Acid 0.8 mmol/L mmol/L (0.7-2.1) Sodium Potassium Chloride Carbon Dioxide Anion Gap BUN Creatinine Estimated GFR Glucose Calcium Total Bilirubin 0.6 mg/dL mg/dL (0.1-1.4) Urine Color YELLOW Urine Appearance CLEAR Urine pH 5.0 (5.0-7.5) Ur Specific [place] 1.015 (1.002-1.030) Urine Protein NEGATIVE (NEGATIVE) Urine Ketones NEGATIVE (NEGATIVE) Urine Blood NEGATIVE (NEGATIVE) Urine Nitrate NEGATIVE (NEGATIVE) Urine Bilirubin NEGATIVE (NEGATIVE) Urine Urobilinogen NEGATIVE EU EU (0.2-1.0) Ur Leukocyte Esterase NEGATIVE (NEGATIVE) Urine Glucose NEGATIVE (NEGATIVE) 07/17/17 07/17/17 07/17/17 11:15 11:15 11:11 WBC 4.92 10^3/uL 10^3/uL (3.80-9.50) RBC 4.34 10^6/uL L 10^6/uL (4.40-6.38) Hgb 11.0 g/dL L g/dL (13.7-17.5) Hct 34.9 % L % (40.0-51.0) MCV 80.4 fL L fL (81.5-99.8) MCH 25.3 pg L pg (27.9-34.1) MCHC 31.5 g/dL L g/dL (32.4-36.7) RDW 17.2 % H % (11.5-15.2) Plt Count 207 10^3/uL 10^3/uL (150-400) MPV 9.3 fL fL (8.7-11.7) Neut % (Auto) 64.3 % % (39.3-74.2) Lymph % (Auto) 13.4 % L % (15.0-45.0) Ellsworth % (Auto) 17.9 % H % (4.5-13.0) Eos % (Auto) 3.0 % % (0.6-7.6) Baso % (Auto) 0.6 % % (0.3-1.7) Nucleat RBC Rel Count 0.0 % % (0.0-0.2) Absolute Neuts (auto) 3.16 10^3/uL 10^3/uL (1.70-6.50) Absolute Lymphs (auto) 0.66 10^3/uL L 10^3/uL (1.00-3.00) Absolute Monos (auto) 0.88 10^3/uL H 10^3/uL (0.30-0.80) Absolute Eos (auto) 0.15 10^3/uL 10^3/uL (0.03-0.40) Absolute Basos (auto) 0.03 10^3/uL 10^3/uL (0.02-0.10) Absolute Nucleated RBC 0.00 10^3/uL 10^3/uL (0-0.01) Immature Gran % 0.8 % % (0.0-1.1) Immature Gran # 0.04 10^3/uL 10^3/uL (0.00-0.10) PT 15.5 SEC H SEC (12.0-15.0) INR 1.21 H (0.83-1.16) APTT 34.0 SEC SEC (23.0-38.0) VBG Lactic Acid Sodium 142 mEq/L mEq/L (135-145) Potassium 5.0 mEq/L mEq/L (3.5-5.2) Chloride 109 mEq/L mEq/L (97-110) Carbon Dioxide 20 mEq/l L mEq/l (22-31) Anion Gap 13 mEq/L mEq/L (8-16) BUN 31 mg/dL H mg/dL (7-23) Creatinine 1.5 mg/dL H mg/dL (0.7-1.3) Estimated GFR 44 Glucose 92 mg/dL mg/dL (70-100) Calcium 8.7 mg/dL mg/dL (8.5-10.4) Total Bilirubin Urine Color Urine Appearance Urine pH Ur Specific [place] Urine Protein Urine Ketones Urine Blood Urine Nitrate Urine Bilirubin Urine Urobilinogen Ur Leukocyte Esterase Urine Glucose Medications Given: Discontinued Medications Sodium Chloride (Ns) 1,000 mls @ 0 mls/hr IV EDNOW ONE; Wide Open PRN Reason: Protocol Stop: 07/17/17 12:49 Last Admin: 07/17/17 13:34 Dose: 1,000 mls Departure - Departure Disposition: [facility] Inpatient Acute Clinical Impression: Altered mental status Qualifiers: Altered mental status type: transient alteration of awareness Qualified Code(s) : R40.4 - Transient alteration of awareness Condition: Fair
[2017-07-17] MEDS ORDERED: NS 1,000 ML IV ONE (12:48)
[2017-07-17 13:05] LABS: INR 1.21 (0.83-1.16); PROTIME(PATIENT) 15.5 SEC (12.0-15.0)
--- NOTE | 2017-07-17 15:49 | GHP ---
[f rep st] HISTORY AND PHYSICAL DATE OF ADMISSION: 07/17/2017 CHIEF COMPLAINT: Difficulty to arouse. HISTORY OF PRESENT ILLNESS: An 86-year-old male with extensive advanced dementia cared for at [facility], who was brought in by his skilled nursing for episode of unresponsiveness which occurred the morn ing of presentation. Patient had a similar hospitalization on July 13. Was admitted, observed, r uled out for any reversible causes of mental status changes. The patient then awoke morning after ad mission without any complications, was evaluated by Neurology, Physical Therapy, Occupational Therapy , Speech Therapy, and cleared to return home. Patient sounds as if he returned home and was back to his normal activities, including oral intake and interaction and communication, and then this morning had another episode of unresponsiveness. During my evaluation in the ED, he is more alert. He is answering questions to the best of his cogni tive ability. He is without complaint of chest pain, shortness of breath, abdominal discomfort, leg pain. Per the care provider's report, he has not had diarrhea, fevers, dysuria, hematuria. PAST MEDICAL HISTORY: 1. Dementia. 2. Dyslipidemia. 3. Chronic kidney disease. 4. BPH. 5. Hypothyroidism. 6. Gastroesophageal reflux disease. 7. History of prostate cancer. 8. Coronary artery disease. SOCIAL HISTORY: [facility] at [facility]. Does not drink. Does not smoke. FAMILY HISTORY: Both parents are . REVIEW OF SYSTEMS: 10-point review of systems is negative with the exception of that reported in the HPI. PHYSICAL EXAMINATION: VITAL SIGNS: Blood pressure 123/76, heart rate 68, respiratory rate 18, 98% o n room air, 36.6. GENERAL: This is an elderly male lying comfortably in bed. HEENT: Notable for m oist mucous membranes. Eye exam is negative for any icterus. CARDIAC: Patient is regular rate and rhythm. A systolic murmur is appreciated. PULMONARY: He is clear to auscultation bilaterally. GAS TROINTESTINAL: Positive bowel sounds. ABDOMEN: Soft and nontender. MUSCULOSKELETAL: Negative for any lower extremity edema. SKIN: Negative for any rashes. NEUROLOGIC: He is alert and oriented t o himself, which is close to his baseline. Chest x-ray, which I personally reviewed and interpreted, shows no acute infiltrates or edema. ASSESSMENT AND PLAN: This is an 86-year-old male, presenting with unresponsiveness. 1. Acute encephalopathy. Patient sounds as if he was not responding to stimuli in the home. Had re cent workup including CT head, CTA of the head and neck, all of which were negative. Patient was see n by Neurology because of some vascular irregularity in the left carotid. Was initiated on baby aspi rin. He will be continued on all these medications. He has no fever, no white count. Urinalysis is negative. I suspect there is not a cause and that we are simply seeing a fluctuation in the patient 's cognitive deficits and dementia. Will admit the patient for observation and supportive care, with out additional imaging or intervention at this time. 2. Coronary artery disease. Will continue patient's home medications without change. 3. Chronic kidney disease. Patient is at his baseline creatinine at 1.5. Again, will keep his appr opriately renally dosed regimen intact. Encourage oral intake. If we do not think he is keeping up, we can certainly add more than a liter of normal saline he has received in the emergency department. 4. Prophylaxis. Will place him on heparin injections. 5. Diet: Regular. He is partial to sweets. DISPOSITION: I expect him less than 2 midnights. I would recommend that there be a multidisciplinar y conversation between the skilled nursing, family, Primary Care, as to goals of care and decision-lucy dia on transferring the patient from [facility] to the emergency department, as I fear recurrent hospi talizations are disruptive to him and place him at greater risk for in-hospital delirium and complica tions. I have discussed the case with the emergency room physician, as well as the bedside care prov ider. We will admit the patient for observation. /[id number]/MODL
[2017-07-17] MEDS: VENLAFAXINE XR 37.5 MG CAP PO SCH (17:51)
[2017-07-17] MEDS: TAMSULOSIN HCL 0.4 MG CAP PO SCH (17:51)
[2017-07-17] MEDS: ACETAMINOPHEN 325 MG TAB PO PRN (21:08)
[2017-07-17] MEDS: DOCUSATE SODIUM 100 MG CAP PO SCH (21:09)
[2017-07-17] MEDS: MELATONIN 3 MG TAB PO SCH (21:09)
[2017-07-17] MEDS: MAGNESIUM OXIDE 400 MG TAB PO SCH (21:09)
[2017-07-17] MEDS: FERROUS SULFATE 325 MG TAB PO SCH (21:09)
[2017-07-17] MEDS: ATORVASTATIN CALCIUM 40 MG TAB PO SCH (21:09)
[2017-07-17] MEDS: HEPARIN 5,000 UNIT/0.5 ML SYR SC SCH (21:18)
[2017-07-18] MEDS: LEVOTHYROXINE 75 MCG TAB PO SCH (05:36)
[2017-07-18] MEDS: HEPARIN 5,000 UNIT/0.5 ML SYR SC SCH ×3 (05:38→21:00)
[2017-07-18] MEDS ORDERED: Herbals/Supplements -Info Only PO SCH (09:00)
[2017-07-18] MEDS: DOCUSATE SODIUM 100 MG CAP PO SCH ×2 (09:48→20:58)
[2017-07-18] MEDS: ASPIRIN 81 MG CHEWABLE TAB PO SCH (09:48)
[2017-07-18] MEDS: ASCORBIC ACID 500 MG TAB PO SCH (09:48)
[2017-07-18] MEDS: OMEGA-3 FATTY ACIDS 1,000 MG CAP PO SCH (09:48)
[2017-07-18] MEDS: PANTOPRAZOLE SODIUM 40 MG TAB PO SCH (09:48)
[2017-07-18] MEDS: CYANO/VITAMIN B12 1000 MCG TAB PO SCH (09:48)
[2017-07-18] MEDS: FERROUS SULFATE 325 MG TAB PO SCH ×2 (09:48→20:58)
[2017-07-18] MEDS: CETIRIZINE 10 MG TAB PO SCH (09:48)
[2017-07-18] MEDS: RIVASTIGMINE TP SCH (09:49)
--- NOTE | 2017-07-18 13:29 | HOSPPROG ---
Hospitalist Progress Note Assessment/Plan: 86 yo M w dementia here w transient decreased responsiveness; 2nd admission for this transient encephalopathy: differential broad he has a linq monitor, will have that interrogated infectious workup negative (cxr interp by me) electrolytes OK unlikely seizure cad: asa/statin ekg on last admit w similar presentation nonischemic (interp by me) ckd: cr at baseline proph: sc heparin dispo: inpt Subjective: appearsa to back at baseline. case d/w dr adams Objective: Vital Signs Temp Pulse Resp BP Pulse Ox 36.7 C 66 16 133/77 H 91 L 07/18/17 08:00 07/18/17 08:00 07/18/17 08:00 07/18/17 08:00 07/18/17 08:00 07/17/17 07/18/17 07/19/17 05:59 05:59 05:59 Intake Total 1000 Output Total 1700 Balance -700 PT 15.5 SEC (12.0-15.0) H 07/17/17 11:11 INR 1.21 (0.83-1.16) H 07/17/17 11:11 - Physical Exam Constitutional: no apparent distress, appears nourished Eyes: PERRL, anicteric sclera Ears, Nose, Mouth, Throat: moist mucous membranes, hearing normal Cardiovascular: regular rate and rhythym, no murmur, rub, or gallop Respiratory: no respiratory distress, no rales or rhonchi Gastrointestinal: normoactive bowel sounds, soft, non-tender abdomen Genitourinary: no bladder fullness, No womack in urethra Skin: warm, normal color Musculoskeletal: full muscle strength, no muscle tenderness Neurologic: sensation intact bilaterally, No AAOx3 Psychiatric: interacting appropriately ICD10 Worksheet Patient Problems: Problems Problem Status Onset Altered mental status Acute Coronary artery bypass grafting Active Acute renal failure Acute Dementia Acute Diarrhea Acute Hyperkalemia Acute Lower GI bleed Acute Right shoulder pain Acute Scalp laceration Acute Syncope Acute
--- NOTE | 2017-07-18 15:24 | PDMN ---
Medical Necessity Medical necessity: Change to IP, as of 07/18/17, per MD; los >2 mn for ongoing management of transient encephalopathy w/decreased responsiveness; admit for further monitoring, Cardiology consult/interrogation of linq monitor & Hospice consult; hx recent hospitalization w/similar presentation; comorbid advanced dementia, advanced age, CKD, prostate cancer, CAD; per progress note & order
--- NOTE | 2017-07-18 15:42 | ASMTCMCOM ---
CM Note CM Note Notes: Spoke w/MD, he spoke w/family regarding hospice consult. Pt agrees with plan, CM faxed referral to [facility] per family's wishes. Analilia at [place] notified. DC Plan: TBD Date Signed: 07/18/2017 03:41 PM Electronically Signed By:Danay Cramer RN
--- NOTE | 2017-07-18 15:48 | GCON ---
[f rep st] CONSULTATION CARDIOVASCULAR CONSULTATION REASON FOR CONSULTATION: The patient is an 86-year-old gentleman with known history of cardiac disea se. He has coronary artery disease. He has dyslipidemia. He has a history of hypertension, history of chronic renal disease. He in the past has been hypothyroid. He has been overtaken by severe dementia, and his quality of life has really taken a turn for the wor se. He is a very brave and regal man, as is his , Veronica, and they are steadfast partners. I have talked to him. He has no complaints of chest pain, chest tightness, jaw pain, arm pain, or sh ortness of breath. He has had multiple falls at [facility] where he is staying because of his demen tia, and he does not recall what is going on or what happened. I have talked to his and his stepdaughter about the history as well. He has been in and out of the hospital multiple times recently. SOCIAL HISTORY: He is at the [employer] [facility] [place]. He is active there. He does not smoke. He does not drink significant amounts of alcohol. 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 He is a mark gentleman with his family and friends and very caring. FAMILY HISTORY: Family history is negative for premature coronary disease. No history of unexplaine d sudden at a young age. REVIEW OF SYSTEMS: A 10-point review of systems is negative except as noted above and in the old rec ords, which I have reviewed extensively. PHYSICAL EXAMINATION: VITAL SIGNS: Blood pressure is 120/75. Heart rate is 70. Respiratory rate i s 12. He is lying comfortably in a hospital bed. HEENT: His pupils are equal and reactive. Mucous membranes of the mouth are moist. NECK: Supple. CARDIOVASCULAR: Reveals S1, S2. Soft, systolic murmur at left sternal border. No diastolic murmur. ABDOMEN: Soft, nontender without masses. CVA: No tenderness. EXTREMITIES: No edema. NEUROLOGIC: I mentioned Shailesh to the woman in the room with him, and he says who is Shailesh, and she said we are talking about you, and "he said I don't know anybod y named Shailesh." He recognizes me and responds well to me. IMAGING STUDIES: While he has been in the hospital, he had a chest x-ray obtained, which showed neil estive heart failure, left basilar opacity, probably atelectasis, and the x-ray shows a LINQ recorder . ASSESSMENT AND PLAN: 1. Coronary artery disease. 2. Dyslipidemia. 3. Dementia. 4. Episodes of falling or weakness. 5. Question of bradycardias. I have talked for an extended period time with his and with his stepdaughter, and her name is David Vogt. Her phone number is [phone]. They both feel that Shailesh has been very clear with them over the years, and he has been very clear with me over the years that should he get to the point whe re he cannot function independently and live independently and have high, regular quality of life, he did not want to prolong life with more testing or more medications, and they feel that at this point in time, he clearly wants to be DNR, and they also believe that given his condition that comfort tracy sures only is the appropriate choice of diagnostic evaluations and treatments. I went over this for an extended period of time, asking many questions, and I have talked to Mrs. Nabeel anderson on 2 different occasions, and I have talked to Ms. Vogt on 2 different occasions, again today. I have also discussed these findings with Dr. Garcia, the hospitalist. I think this is entirely consistent with what Shailesh has told me over 18 or 19 years of his care, and we have discussed this on many occasions because of issues that came up around cardiovascular situation s. So at this point in time, we will make him comfort measures only. The family would like to have [facility] come and evaluate him, in case he qualifies for services. I am very happy to say that his life expectancy is less than 6 months at this time. I think the patient does not want to come in to the hospital repeatedly. His and his stepdaughter do not want him to be returned to the [facility] room on a regular basis, and they understand after our discussion how hospice works, and they a gree with the concept and would like very much to get the additional help if it is possible. So I have put in an order and talked to discharge planning to have [facility] evaluate the patient. I have talked to the people where he is living at [facility] and they understand this, and I think fr om a cardiovascular point of view, he is safe to leave at this time. Now I had long discussions with the family about the fact that it is conceivable that he may have bra dycardias or heart block or other significant cardiovascular arrhythmias that we have management for; that we could evaluate him further for, and they were totally of the opinion which is exactly what I believe he wants and what he has told me before that he would not want further evaluation for this. He would not want a pacemaker. He does not want any further cardiovascular evaluations done. He wo uld like to be kept comfortable and the family wants this for him. So, therefore we will not proceed with further evaluation of what is happening with these falls he is taking or the spells he is havin g or the question of bradyarrhythmias. If there are any questions about any of this, please call me directly. Thank you very much. /[id number]/MODL
[2017-07-18] MEDS: TAMSULOSIN HCL 0.4 MG CAP PO SCH (17:52)
[2017-07-18] MEDS: ACETAMINOPHEN 325 MG TAB PO PRN (17:53)
[2017-07-18] MEDS: VENLAFAXINE XR 37.5 MG CAP PO SCH (17:53)
[2017-07-18] MEDS: ATORVASTATIN CALCIUM 40 MG TAB PO SCH (20:58)
[2017-07-18] MEDS: MAGNESIUM OXIDE 400 MG TAB PO SCH (20:58)
[2017-07-18] MEDS: MELATONIN 3 MG TAB PO SCH (20:58)
[2017-07-19] MEDS: LEVOTHYROXINE 75 MCG TAB PO SCH (05:18)
[2017-07-19] MEDS: HEPARIN 5,000 UNIT/0.5 ML SYR SC SCH ×3 (05:19→21:33)
--- NOTE | 2017-07-19 10:22 | ASMTCMCOM ---
CM Note CM Note Notes: Received call from Pt's dtr and , they would like to change the hospice agency from [facility] to [facility]. CM called [facility] to cancel. Order faxed to [facility]. Date Signed: 07/19/2017 10:21 AM Electronically Signed By:Danay Cramer RN
[2017-07-19] MEDS: PANTOPRAZOLE SODIUM 40 MG TAB PO SCH (10:53)
[2017-07-19] MEDS: ASPIRIN 81 MG CHEWABLE TAB PO SCH (10:54)
[2017-07-19] MEDS: DOCUSATE SODIUM 100 MG CAP PO SCH ×2 (10:56→21:29)
[2017-07-19] MEDS: CETIRIZINE 10 MG TAB PO SCH (10:57)
[2017-07-19] MEDS: FERROUS SULFATE 325 MG TAB PO SCH ×2 (10:57→21:29)
[2017-07-19] MEDS: OMEGA-3 FATTY ACIDS 1,000 MG CAP PO SCH (10:58)
[2017-07-19] MEDS: CYANO/VITAMIN B12 1000 MCG TAB PO SCH (10:59)
[2017-07-19] MEDS: ASCORBIC ACID 500 MG TAB PO SCH (10:59)
[2017-07-19] MEDS: RIVASTIGMINE TP SCH (10:59)
--- NOTE | 2017-07-19 15:27 | HOSPPROG ---
Hospitalist Progress Note Assessment/Plan: 86 yo M w dementia here w transient decreased responsiveness; 2nd admission for this transient encephalopathy: differential broad he has a linq monitor, which is 8 years old and has battery infectious workup negative (cxr interp by me) electrolytes OK unlikely seizure no further workup, no recurrence plan of care: hospice eval cad: asa/statin ekg on last admit w similar presentation nonischemic (interp by me) ckd: cr at baseline proph: sc heparin dispo: inpt Subjective: spent time at bedside w - changed to dnr, comfort measures only and plan to pursue hospice level care Objective: Vital Signs Temp Pulse Resp BP Pulse Ox 37.2 C 69 16 147/68 H 92 07/19/17 07:43 07/19/17 07:43 07/19/17 07:43 07/19/17 07:43 07/19/17 07:43 07/18/17 07/19/17 07/20/17 05:59 05:59 05:59 Intake Total 850 Output Total 1100 250 Balance -250 -250 PT 15.5 SEC (12.0-15.0) H 07/17/17 11:11 INR 1.21 (0.83-1.16) H 07/17/17 11:11 - Physical Exam Constitutional: no apparent distress, appears nourished Eyes: PERRL, anicteric sclera Ears, Nose, Mouth, Throat: moist mucous membranes, hearing normal Cardiovascular: regular rate and rhythym, no murmur, rub, or gallop Respiratory: no respiratory distress, no rales or rhonchi Gastrointestinal: normoactive bowel sounds, soft, non-tender abdomen Genitourinary: No womack in urethra Skin: warm, normal color Musculoskeletal: full muscle strength, no muscle tenderness Neurologic: AAOx3 ICD10 Worksheet Patient Problems: Problems Problem Status Onset Altered mental status Acute Coronary artery bypass grafting Active Acute renal failure Acute Dementia Acute Diarrhea Acute Hyperkalemia Acute Lower GI bleed Acute Right shoulder pain Acute Scalp laceration Acute Syncope Acute
--- NOTE | 2017-07-19 16:48 | ASMTCMCOM ---
CM Note CM Note Notes: Spoke w/Penny from [facility], she does not think that pt qualifies for hospice at this time but will check with her director. Pt will likely dc back to [facility] tomorrow. Penny will notify Analilia at and call dtr [facility]. DC Plan: [facility] Date Signed: 07/19/2017 04:47 PM Electronically Signed By:Danay Cramer RN
[2017-07-19] MEDS: TAMSULOSIN HCL 0.4 MG CAP PO SCH (18:39)
[2017-07-19] MEDS: VENLAFAXINE XR 37.5 MG CAP PO SCH (18:40)
[2017-07-19 19:43] VITALS: RESP 18
[2017-07-19] MEDS: MAGNESIUM OXIDE 400 MG TAB PO SCH (21:29)
[2017-07-19] MEDS: ATORVASTATIN CALCIUM 40 MG TAB PO SCH (21:29)
[2017-07-19] MEDS: MELATONIN 3 MG TAB PO SCH (21:29)
[2017-07-20] MEDS: LEVOTHYROXINE 75 MCG TAB PO SCH (06:02)
[2017-07-20] MEDS: HEPARIN 5,000 UNIT/0.5 ML SYR SC SCH (06:02)
[2017-07-20 07:46] VITALS: BP 125/77; PULSE 67; TEMP 99.1; O2SAT 20
[2017-07-20] MEDS: ASPIRIN 81 MG CHEWABLE TAB PO SCH (09:47)
[2017-07-20] MEDS: CYANO/VITAMIN B12 1000 MCG TAB PO SCH (09:48)
[2017-07-20] MEDS: CETIRIZINE 10 MG TAB PO SCH (09:48)
[2017-07-20] MEDS: PANTOPRAZOLE SODIUM 40 MG TAB PO SCH (09:49)
[2017-07-20] MEDS: FERROUS SULFATE 325 MG TAB PO SCH (09:49)
[2017-07-20] MEDS: DOCUSATE SODIUM 100 MG CAP PO SCH (09:50)
[2017-07-20] MEDS: ASCORBIC ACID 500 MG TAB PO SCH (09:50)
[2017-07-20] MEDS: OMEGA-3 FATTY ACIDS 1,000 MG CAP PO SCH (09:51)
--- NOTE | 2017-07-20 10:02 | PDIAF ---
- Diagnosis Diagnosis: encephalopathy Code Status: Do Not Resuscitate - Medication Management Discharge Medications: Medications to Continue on Transfer Tamsulosin HCl 0.4 mg PO DAILY18 05/05/11 [Last Taken 07/12/17] Atorvastatin Calcium [Lipitor 40 mg (*)] 40 mg PO HS 06/13/11 [Last Taken ] Herbals/Supplements -Info Only 1 ea PO DAILY 03/01/15 [Last Taken Unknown] Levothyroxine [Synthroid 75 mcg (*)] 75 mcg PO DAILY06 03/01/15 [Last Taken ] Ascorbic Acid [Vitamin C 500 mg (*)] 500 mg PO DAILY 02/06/17 [Last Taken ] Cyanocobalamin [Vitamin B12 (*)] 1,000 mcg PO DAILY 04/25/17 [Last Taken ] Sebree-3 Fatty Acids [Fish Oil 1000 mg (*)] 1,000 mg PO DAILY 04/25/17 [Last Taken 07/13/17] Omeprazole [Prilosec 20 mg] 20 mg PO DAILY 04/25/17 [Last Taken 07/13/17] Acetaminophen [Tylenol 325mg (*)] 650 mg PO Q6HRS PRN 06/26/17 [Last Taken Unknown] Cetirizine [ZyrTEC 10 mg (*)] 10 mg PO DAILY 06/26/17 [Last Taken 07/13/17] Docusate Sodium [Colace 100 MG (*)] 100 mg PO BID 06/26/17 [Last Taken 07/13/17 08:00] Ferrous Sulfate [Ferrous Sulf 325 MG (*)] 325 mg PO BID 06/26/17 [Last Taken 08:00] Magnesium Oxide [Magnesium Oxide 400 mg (*)] 400 mg PO HS 06/26/17 [Last Taken 07/12/17] Melatonin [Melatonin 3 MG (*)] 3 mg PO HS 06/26/17 [Last Taken 07/12/17] Venlafaxine Xr [Effexor Xr 37.5MG (*)] 37.5 mg PO DAILY@18 06/26/17 [Last Taken 07/12/17] Rivastigmine 1 patch TP DAILY 07/13/17 [Last Taken 07/13/17] Aspirin [Aspirin 81mg (*)] 81 mg PO DAILY #30 tab 07/14/17 [Last Taken Unknown] traZODone [traZODONE 100MG (*)] 100 mg PO HS 07/17/17 [Last Taken Unknown] Discharge Medications: Refer to the Discharge Home Medication list for PRN reason. - Orders Services needed: Physical Therapy, Occupational Therapy Isolation Type: None - Follow Up Care Current Providers and Referrals: Patient,NotPresent [Unknown] - As per Instructions
--- NOTE | 2017-07-20 10:07 | PDIAF ---
- Diagnosis Diagnosis: encephalopathy Code Status: Do Not Resuscitate - Medication Management Discharge Medications: Medications to Continue on Transfer Tamsulosin HCl 0.4 mg PO DAILY18 05/05/11 [Last Taken 07/12/17] Herbals/Supplements -Info Only 1 ea PO DAILY 03/01/15 [Last Taken Unknown] Levothyroxine [Synthroid 75 mcg (*)] 75 mcg PO DAILY06 03/01/15 [Last Taken ] Ascorbic Acid [Vitamin C 500 mg (*)] 500 mg PO DAILY 02/06/17 [Last Taken ] Omeprazole [Prilosec 20 mg] 20 mg PO DAILY 04/25/17 [Last Taken 07/13/17] Acetaminophen [Tylenol 325mg (*)] 650 mg PO Q6HRS PRN 06/26/17 [Last Taken Unknown] Cetirizine [ZyrTEC 10 mg (*)] 10 mg PO DAILY 06/26/17 [Last Taken 07/13/17] Docusate Sodium [Colace 100 MG (*)] 100 mg PO BID 06/26/17 [Last Taken 07/13/17 08:00] Magnesium Oxide [Magnesium Oxide 400 mg (*)] 400 mg PO HS 06/26/17 [Last Taken 07/12/17] Melatonin [Melatonin 3 MG (*)] 3 mg PO HS 06/26/17 [Last Taken 07/12/17] Venlafaxine Xr [Effexor Xr 37.5MG (*)] 37.5 mg PO DAILY@18 06/26/17 [Last Taken 07/12/17] Rivastigmine 1 patch TP DAILY 07/13/17 [Last Taken 07/13/17] traZODone [traZODONE 100MG (*)] 100 mg PO HS 07/17/17 [Last Taken Unknown] Discharge Medications: Refer to the Discharge Home Medication list for PRN reason. - Orders Services needed: Physical Therapy, Occupational Therapy Isolation Type: None Diet Recommendation: no restrictions on diet Diet Texture: Regular Texture Diet - Follow Up Care Current Providers and Referrals: Patient,NotPresent [Unknown] - As per Instructions
--- NOTE | 2017-07-20 10:13 | PDDCSUM ---
Discharge Summary Discharge Summary: The patient is a 86 yo male with hx of advance dementia who resides at [facility] who was admitted for acute Encephalopathy. He has had multiple hospitalizations for this. He was admitted. Please see H&P. W/u was essentially unremarkable and he mentation improved to baseline. Cards was consulted given his hx of CAD. A decision to consult hospice was made, but hospice evaluation did not conclude that the patient did not meet hospice requirements. As the patient is back to baseline and in keeping with his and his family's wishes he will be d/c back to [facility]. I have stopped all non essential meds and have continued any medication that may help with his dementia and overall mood. His code status was changed to DNR. DDX: #acute on chronic encephalopathy #CKD #HTN #CAD Exam: NAD AWAKE, NOT ORIENTED RRR CTA B S/NT/ND NO LE EDEMA MEDS: SEE MED REC F/U: WITH PCP 1-4 WEEKS TOTAL TIME SPENT ON D/C IS 35 MINS. D/W DIRECTOR GRAPHICS
--- NOTE | 2017-07-20 10:59 | ASMTCMCOM ---
CM Note CM Note Notes: Spoke w/pt's dtr Floresita, notified her that pt will dc back to [place] today, she has arranged for 24hr care. CM notified Analilia at and [facility] who will pick pt up today at noon. [facility] accepted pt [facility] for PT/OT DC Plan: [place] + [facility] (PT/OT) Date Signed: 07/20/2017 10:58 AM Electronically Signed By:Danay Cramer RN
--- NOTE | 2017-07-20 11:06 | ASMTLACE ---
LACE Length of stay for Answers: 2 days current admission Acuity / Level of Answers: Yes Care: Did the patient have an inpatient admission? Comorbidities - select Answers: Coronary Artery Disease all that apply Dementia Other Notes: Prostate cancer, CKD, # of Emergency department Answers: 5-8 visits in the last 6 months Score: 15 Date Signed: 07/20/2017 11:05 AM Electronically Signed By:Danay Cramer RN
[2017-07-20] MEDS: RIVASTIGMINE TP SCH (11:09)
--- NOTE | 2017-07-21 09:16 | ASDISCHSUM ---
Discharge Information Plan Status:Assisted Living Medically Cleared to Leave: Discharge Date:07/20/2017 12:50 PM D/C Disposition:Home Health Service ADT D/C Disposition:[facility] Facility Projected Discharge Date:07/20/2017 11:00 AM Transportation at D/C:Family Discharge Delay Reason: Follow-Up Date:07/20/2017 11:00 AM Discharge Slot: Final Diagnosis: Placement Information Referral Type:*Hospice Referral ID:[id number] Provider Name: Address 1: Phone Number: Address 2: Fax Number: City: Selection Factors: State: Referral Type:*Home Health Care Services Referral ID:[id number] Provider Name:[facility] Address 1:[address] [place] [address] Address 2: City:[place] Selection Factors: State:[place] Patient Contact Information Contact Name:FLORESITABUHILARIO Relationship:Daughter Address:[address] [place] [address] City:[place] Alternate Phone: State/Zip Code:[place] [address] Email: Financial Information Financial Class:Medicare Primary Plan Desc:MEDICARE INPATIENT Primary Plan Number:[id number] Secondary Plan Desc:[employer]/MDR SUPPLEMENT Secondary Plan Number:[id number] Assessment Information LACE LACE Length of stay for Answers: 2 days current admission Acuity / Level of Answers: Yes Care: Did the patient have an inpatient admission? Comorbidities - select Answers: Coronary Artery Disease all that apply Dementia Other Notes: Prostate cancer, CKD, # of Emergency department Answers: 5-8 visits in the last 6 months Score: 15 Date Signed: 07/20/2017 11:05 AM Electronically Signed By:Danay Cramer RN [facility] Progress Note CM Note CM Note Notes: Spoke w/, he spoke w/family regarding hospice consult. Pt agrees with plan, CM faxed referral to [facility] per family's wishes. Analilia at [place] notified. DC Plan: TBD Date Signed: 07/18/2017 03:41 PM Electronically Signed By:Danay Cramer RN [facility] Progress Note CM Note CM Note Notes: Received call from Pt's dtr and , they would like to change the hospice agency from [facility] to [facility]. FRANCISCO called [facility] to cancel. Order faxed to [facility]. Date Signed: 07/19/2017 10:21 AM Electronically Signed By:Danay Cramer RN [facility] Progress Note CM Note CM Note Notes: Spoke w/Penny from [facility], she does not think that pt qualifies for hospice at this time but will check with her director. Pt will likely dc back to [place] tomorrow. Penny will notify Analilia at and call dtr Floresita. DC Plan: [place] Date Signed: 07/19/2017 04:47 PM Electronically Signed By:Danay Cramer RN [facility] Progress Note CM Note CM Note Notes: Spoke w/pt's dtr Floresita, notified her that pt will dc back to [place] today, she has arranged for 24hr care. FRANCISCO notified Analilia at and Loyda Marie who will pick pt up today at noon. [facility] has accepted pt back for PT/OT DC Plan: [place] + [facility] (PT/OT) Date Signed: 07/20/2017 10:58 AM Electronically Signed By:Dnaay Cramer RN Case Management Discharge Plan Note Case Management Discharge Discharge Order Complete? Answers: Yes Patient to Obtain Answers: Other Notes: [place] Medications Transportation Arranged Answers: Family/Friends Transport will Pick (Date 07/20/2017 12:00 PM & Time) Faxed Final Orders Answers: Yes Agency/Facility Transfer Answers: Yes Report Printed & Faxed to Receiving Agency Family Notified Answers: Yes Discharge Comments Notes: D/w MD, final orders faxed. Analilia at , [facility], [facility] , and [facility] for all notified. Updated [facility] form faxed. RN to call report. Date Signed: 07/20/2017 11:04 AM Electronically Signed By:Danay Cramer RN Intervention Information Intervention Type:*KAMINSKI-Signed Date of Service:07/18/2017 12:00 PM Patient Type:Observation Staff Member:Lina Marshall Hours: Discipline: Severity: Comment: Intervention Type:*IM-Signed Date of Service:07/19/2017 03:50 PM Patient Type:Inpatient Staff Member:Lina Marshall Hours: Discipline: Severity: Comment:
== END 2017-07-20 12:50 | DRG 72 ==
LOC: EDUNIT# → INTOOBSV 14:55 → F3E 16:44 → OBSVTOIN 07-18 14:54
PROVIDERS: ADMIT Internal Medicine; ATTEND Internal Medicine
DX: G93.49 Other encephalopathy (principal); I12.9 Hypertensive chronic kidney disease with stage 1 through stage 4 chronic kidney disease, or unspecified chronic kidney disease; N18.9 Chronic kidney disease, unspecified; I25.10 Atherosclerotic heart disease of native coronary artery without angina pectoris; F03.90 Unspecified dementia, unspecified severity, without behavioral disturbance, psychotic disturbance, mood disturbance, and anxiety; E78.5 Hyperlipidemia, unspecified; E03.9 Hypothyroidism, unspecified; Z85.46 Personal history of malignant neoplasm of prostate; Z87.891 Personal history of nicotine dependence; Z95.1 Presence of aortocoronary bypass graft
CPT/HCPCS: J1644

== ENCOUNTER 2017-09-29 18:59 | Emergency (ER) | payer OTHER, MEDICARE ==
--- NOTE | 2017-09-29 19:23 | EDPHY ---
H & P Time Seen by Provider: 09/29/17 19:20 HPI/ROS: Chief complaint. Hip pain HPI. 86-year-old male fall at home while transferring injuring his right hip and also to right elbow. No head injury or loss of consciousness. Not on blood thinners. Patient has dementia and is on hospice. Patient has no complaints of headache or chest pain or neck pain or abdominal pain or trouble breathing. Unable to stand after his fall ROS Constitutional. no fever/chills, no weakness Eyes. no problems with vision ENT. no sore throat, no nasal drainage Cardiovascular. no chest pain Respiratory. no shortness of breath, no cough Abdominal. no abdominal pain, no nausea/vomiting, no diarrhea . no problems urinating MS. Right hip and elbow pain Skin. no rash Lymph. no swollen glands Neuro. no headache, no dizziness, unable to stand Past Medical/Surgical History: Dementia, dyslipidemia, hypothyroid, prostate cancer, hypertension, coronary artery bypass graft Social History: , nonsmoker, no alcohol Smoking Status: Former smoker Physical Exam: General Appearance: Alert well-developed male mild distress vital signs stable Eyes: Pupils equal and round no pallor or injection. ENT, Mouth: Mucous membranes are moist. Respiratory: There are no retractions, lungs are clear to auscultation. Cardiovascular: Regular rate and rhythm. Gastrointestinal: Abdomen is soft and nontender, no masses, bowel sounds normal. Neurological: Awake and alert, sensory and motor exams grossly normal. Skin: Abrasion right elbow Musculoskeletal: Neck is supple nontender. Extremities right hip pain and the right lower extremity is shortened and externally rotated Psychiatric: Patient is oriented X 3, there is no agitation. Constitutional: Initial Vital Signs Temperature (C) 36.4 C 09/29/17 19:10 Heart Rate 74 09/29/17 19:10 Respiratory Rate 16 09/29/17 19:10 Blood Pressure 126/69 H 09/29/17 19:10 O2 Sat (%) 94 09/29/17 19:10 O2 Delivery Mode Nasal Cannula O2 (L/minute) 1 Allergies/Adverse Reactions: No Known Allergies Allergy (Unverified 06/26/17 20:29) Home Medications: Medication Instructions Recorded Tamsulosin HCl 0.4 mg PO DAILY18 05/05/11 Herbals/Supplements -Info Only 1 ea PO DAILY 03/01/15 Levothyroxine [Synthroid 75 mcg 75 mcg PO DAILY06 03/01/15 (*)] Ascorbic Acid [Vitamin C 500 mg 500 mg PO DAILY 02/06/17 (*)] Omeprazole [Prilosec 20 mg] 20 mg PO DAILY 04/25/17 Acetaminophen [Tylenol 325mg (*)] 650 mg PO Q6HRS PRN 06/26/17 Cetirizine [ZyrTEC 10 mg (*)] 10 mg PO DAILY 06/26/17 Docusate Sodium [Colace 100 MG (*)] 100 mg PO BID 06/26/17 Magnesium Oxide [Magnesium Oxide 400 mg PO HS 06/26/17 400 mg (*)] Melatonin [Melatonin 3 MG (*)] 3 mg PO HS 06/26/17 Venlafaxine Xr [Effexor Xr 37.5MG 37.5 mg PO DAILY@18 06/26/17 (*)] Rivastigmine 1 patch TP DAILY 07/13/17 traZODone [traZODONE 100MG (*)] 100 mg PO HS 07/17/17 oxyCODONE/APAP 5/325 [Percocet 1 tab PO Q4-6PRN PRN #14 tab 09/29/17 5/325] Medical Decision Making - Diagnostics Imaging Results: Imaging Impressions Elbow X-Ray 09/29/17 19:34 Impression: Negative right elbow radiographs. Hip X-Ray 09/29/17 19:34 Impression: Suspect intertrochanteric right femur fracture. Recommend noncontrast CT for further evaluation. X-ray right hip reviewed by me and discussed with Dr. Tolentino shows likely intertrochanteric right hip fracture ED Course/Re-evaluation: Hospice is here and would currently only like x-rays to be performed Re-evaluation at 8:25 a.m. And hospice is not currently here. The instructions of the family caregiver are no further imaging or treatment until hospice discusses the plan with the patient's . Patient will be given medication for pain. I have spoken to the hospice nurse and the patient's daughter. The hospice nurse is talking to the patient's daughter and the patient's . The hospice nurse tells me then that the family has decided no CT and no further workup in return to [place]. We will send by ambulance. Differential Diagnosis: Hip fracture in a man with dementia on hospice. Family has decided no further imaging or treatment and no surgery - Data Points Medications Given: Discontinued Medications Ondansetron HCl (Zofran Odt) 4 mg PO EDNOW ONE Stop: 09/29/17 20:28 Last Admin: 09/29/17 20:41 Dose: 4 mg Oxycodone/Acetaminophen (Percocet 5/325) 1 tab PO EDNOW ONE Stop: 09/29/17 20:28 Last Admin: 09/29/17 20:41 Dose: 1 tab Departure - Departure Disposition: Home, Routine, Self-Care Clinical Impression: Intertrochanteric fracture of right hip Qualifiers: Encounter type: initial encounter Fracture type: closed Fracture alignment: nondisplaced Qualified Code(s): S72.144A - Nondisplaced intertrochanteric fracture of right femur, initial encounter for closed fracture Condition: Fair Instructions: Hip Fracture (ED) Additional Instructions: Pain medication. May stand for transfer. Return for worsening symptoms. Continued evaluation and pain control by hospice Referrals: Patient,NotPresent [Primary Care Provider] - As per Instructions Prescriptions: oxyCODONE/APAP 5/325 [Percocet 5/325] 1 tab PO Q4-6PRN PRN #14 tab PRN Reason: Pain, Moderate
[2017-09-29] MEDS ORDERED: ONDANSETRON DISINTEGRATING 4 MG TAB PO ONE (20:27)
[2017-09-29] MEDS ORDERED: OXYCODONE/APAP 5/325 TAB PO ONE (20:27)
[2017-09-29 21:33] VITALS: BP 138/73
== END 2017-09-29 23:07 | disposition home or self-care (01) ==
LOC: EDUNIT#
DX: S72.144A Nondisplaced intertrochanteric fracture of right femur, initial encounter for closed fracture (principal); I10 Essential (primary) hypertension; Z85.46 Personal history of malignant neoplasm of prostate; Z87.891 Personal history of nicotine dependence; W01.0XXA Fall on same level from slipping, tripping and stumbling without subsequent striking against object, initial encounter; Y92.009 Unspecified place in unspecified non-institutional (private) residence as the place of occurrence of the external cause; Y99.8 Other external cause status; Y93.89 Activity, other specified